=== PATIENT | male | born 1975 | race Caucasian/White ===

== ENCOUNTER 2016-03-07 17:46 | Emergency (ER) | payer OTHER, MEDICARE ==
[~2016-03-07 17:46] MED LIST: ADVAIR 250-501 EACH INH; ALBUTEROL 3 ML3 ML; ALBUTEROL 3 ML3 ML INH; ALBUTEROL SULFAT3 M1 NEB; ALPRAZOLAM0.5 MG PO; AMOXIL500 MG PO; ATIVAN0.5 MG PO; ATIVAN1 MG PO; AUGMENTIN 250 M1 TAB PO; AUGMENTIN 875 M1 TAB PO; CARAFATE 1GM1000 MG PO; CEFUROXIME500 MG PO; CETIRIZINE HCL10 MG PO; CLINDAMYCIN PHO60 M2 TOP; DEXILANT60 M1 PO; DEXILANT60 MG PO; DUONEB 3 MG/3 ML3 ML INH/SOL; FLEXERIL10 MG PO; FLONASE120 SPRAY/ NASB; FLOVENT HF0.22 MG/Ac INH; FLOVENT1 PU1 INH; GUAFENESIN400 MG PO; GUAIFENESIN-COD10 ML PO; LEVAQUIN500 M1 PO; LEVOFLOXACIN500 MG PO; LEXAPRO 10MG10 MG PO; LEXAPRO 20MG M20 MG PO; LEXAPRO10 M1 PO; LIDOCAINE VISCO20 ML PO; MEDROL DOSEPAK1 PAC PO; METOCLOPRAMIDE H5 M1 PO; MOTRIN800 MG PO; MUCINEX FAST-MA1 TAB PO; NAPROXEN500 MG PO; NASONEX0.05 MG/Ac NASB; PERCOCET 325 MG1 TA2 PO; PREDNISONE 10MG10 M1 PO; PREDNISONE 20MG20 MG PO; PREDNISONE10 M2 PO; PREDNISONE10 MG PO; PREDNISONE20 M1 PO; PREDNISONE50 MG PO; ROBITUSSIN W/CO10 ML PO; TESSALON PERLE100 M1 PO; TESSALON PERLE100 MG PO; VENTOLIN1 PUF INH; ZITHROMAX Z-PA250 M1 PO; ZOFRAN4 M2 PO
--- NOTE | 2016-03-07 18:16 | ED GENERAL ADULT ---
History of Present Illness General Chief Complaint: Abdominal Pain/Flank Pain Stated Complaint: ABD PAIN, ACID REFLUX PAIN Source: patient, old records Exam Limitations: no limitations Vital Signs & Intake/Output Vital Signs & Intake/Output Vital Signs Date Time Temp Pulse Resp B/P Pulse O2 O2 Flow FiO2 Ox Delivery Rate 03/07 1944 97.1 92 18 128/80 96 Room Air 03/07 1758 97.2 100 18 156/94 98 Room Air ED Intake and Output 03/08 0000 03/07 1200 Intake Total 0 Output Total Balance 0 Intake, Oral 0 Allergies Coded Allergies: NO KNOWN ALLERGIES (03/07/16) Reconcile Medications Albuterol Sulfate (Ventolin) 1 UNIT PUF 2 PUF INH Q4H PRN WHEEZING/SHORTNESS OF BREATH Albuterol Sulfate/Ipratropiu (Duoneb) 3 MG/3 ML NEB 1 Vial INH/RUTHY 4 TIMES/DAY asthma Dexlansoprazole (Dexilant) 60 MG CAP.BP 1 CAP PO DAILY GI (Reported) Escitalopram Oxalate (Lexapro) 10 MG TABLET 1 TAB PO DAILY MENTAL HEALTH ( Reported) FLUTICASONE/SALMETEROL (Advair 250-50 Diskus) 1 DSK DSK 1 PUFF INH BID ASTHMA (Reported) Hyoscyamine (Levsin) 0.125 MG TABLET 1 TAB PO Q4 PRN ABD CRAMPING (Reported) Lorazepam 0.5 MG TABLET 1 TAB PO TID PRN ANXIETY (Reported) Sucralfate 1 GRAM TABLET 1 TAB PO 4 TIMES/DAY GI (Reported) Triage Note: PT BROUGHT DIRECTLY TO 3 PT STATES "MY HEAD FEELS EXTREMELY HOT" 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 Triage Nurses Notes Reviewed? yes HPI: Patient is a 40-year-old male presents complaining of feeling "extremely hot" sudden onset 30 minutes ago. Patient reports that he has been having varying abdominal pain over the past 2-3 weeks, no abdominal pain currently also reports upper posterior thoracic pain which feels similar to his previous acid reflux. Patient concerned that he may be having acid reflux that is going down into his lungs. Having a feeling of chest tightness that feels similar to previous asthma exacerbations. Patient took 0.5 mg of lorazepam and use an albuterol nebulizer treatment prior to arrival with mild improvement. No significant cough. Patient had a bowel movement today that was normal. Patient denies fevers, chills, nausea, vomiting. (LIVE GREENE) Past History Travel History Traveled to [place] past 21 day No Medical History Any Pertinent Medical History? 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 DVT Relation not specified for: *No pertinent family history Hx Contributory? No (LIVE GREENE) Review of Systems Review of Systems Constitutional: Denies: chills, fever. EENTM: Reports: no symptoms. Respiratory: Reports: wheezing. Denies: cough, short of breath. Cardiovascular: Reports: chest pain. GI: Reports: abdominal pain (NONE CURRENTLY). Denies: nausea, vomiting. Genitourinary: Reports: no symptoms. Musculoskeletal: Reports: no symptoms. Skin: Reports: no symptoms. Neurological/Psychological: Reports: headache (NONE CURRENTLY). Hematologic/Endocrine: Denies: bruising, bleeding. Immunologic/Allergic: Denies: splenectomy. (LIVE GREENE) Physical Exam Physical Exam General Appearance: well developed/nourished, alert, awake, anxious Head: atraumatic, normal appearance Eyes: Bilateral: normal appearance, PERRL, EOMI. Ears, Nose, Throat: normal pharynx, normal ENT inspection, hearing grossly normal Neck: normal inspection, supple, full range of motion Respiratory: mild expiratory wheezing left lung base. Cardiovascular: regular rate/rhythm (NO MURMUR) Gastrointestinal: normal bowel sounds, soft, non-tender Back: normal inspection, normal range of motion, no vertebral tenderness Extremities: normal inspection, normal capillary refill, normal range of motion, no edema Neurologic/Psych: no motor/sensory deficits, awake, alert, oriented x 3, normal gait, normal mood/affect Skin: warm/dry, MULTIPLE SURGICAL SCARS TO THE ABDOMEN, NO SIGNS OF INFECTION Lymphatic: no anterior cervical rex Core Measures ACS in differential dx? No CVA/TIA Diagnosis: No Severe Sepsis Present: No Septic Shock Present: No (LIVE GREENE) Progress Differential Diagnoses I considered the following diagnoses in my evaluation of the patient: gerd, aspiration pneumonitis, bronchitis, pneumonia, anxiety Plan of Care: Orders Procedure Date/time Status LIPASE 03/07 1809 Complete COMPREHENSIVE METABOLIC PANEL 03/07 1809 Complete CBC WITHOUT DIFFERENTIAL 03/07 1809 Complete Laboratory Tests 03/07/161818: Anion Gap 14, Estimated GFR > 60, BUN/Creatinine Ratio 7.5, Glucose 173 H, Calcium 8.9, Total Bilirubin 0.8, AST 25, ALT 46, Alkaline Phosphatase 52, Total Protein 6.9, Albumin 4.4, Globulin 2.5, Albumin/Globulin Ratio 1.8, Lipase 173 03/07/161813: CBC w Diff NO MAN DIFF REQ, RBC 4.52 L, MCV 91.8, MCH 30.9, RDW 13.1, MPV 8.2, Gran % 61.2, Lymphocytes % 25.0, Monocytes % 9.6 H, Eosinophils % 3.9, Basophils % 0.3, Absolute Granulocytes 4.3, Absolute Lymphocytes 1.7, Absolute Monocytes 0.7 H, Absolute Eosinophils 0.3, Absolute Basophils 0, PUBS MCHC 33.7 1939: Patient reports feeling significantly improved after nebulizer treatment. Results of labs and chest x-ray discussed with patient. Appears stable for discharge. Instructed to follow up with his primary doctor regarding his blood sugar and his symptoms along with his GI doctor regarding his abdominal pain. (LIVE GREENE) Initial ED EKG: none (LIVE GREENE) Departure Departure Time of Disposition: 1942 Disposition: HOME OR SELF CARE Condition: Stable Clinical Impression Primary Impression: Bronchospasm Secondary Impressions: GERD (gastroesophageal reflux disease) Qualifiers: Esophagitis presence: esophagitis presence not specified Qualified Code: K21.9 - Gastro-esophageal reflux disease without esophagitis Referrals: TYLER WRAY MD (PCP/Family) Additional Instructions: Use your albuterol nebulizer as directed. Follow up with your primary doctor for further evaluation of your blood sugar and your symptoms. Also follow up with your GI doctor. Call Thursday for appointment to be seen within 1 week. Return to the ER if worsening of symptoms. Departure Forms: Customer Survey General Discharge Information (LIVE GREENE) PA/WEB METHODS DEVELOPER Co-Sign Statement Statement: ED Attending supervision documentation- [] I saw and evaluated the patient. I have also reviewed all the pertinent lab results and diagnostic results. I agree with the findings and the plan of care as documented in the PA's/WEB METHODS DEVELOPER's documentation. [x] I have reviewed the ED Record and agree with the PA's/WEB METHODS DEVELOPER's documentation. [] Additions or exceptions (if any) to the PAs/WEB METHODS DEVELOPER's note and plan are summarized below: [] (MAREK HAILE,KAREN Carey) Critical Care Note Critical Care Note Critical Care Time: non-applicable (LIVE GREENE)
[2016-03-07] MEDS ORDERED: SUCRALFATE1 G1 PO (18:21)
[2016-03-07] MEDS ORDERED: LORAZEPAM0.5 M1 PO (18:21)
[2016-03-07] MEDS ORDERED: DEXILANT60 M1 PO (18:21)
[2016-03-07] MEDS ORDERED: LEVSIN0.125 M1 PO (18:22)
[2016-03-07 18:31] LABS: ABSOLUTE BASOPHIL COUNT 0 /CUMM (0.0-0.2); ABSOLUTE EOSINOPHIL COUNT 0.3 /CUMM (0.0-0.7); ABSOLUTE GRANULOCYTE CT 4.3 /CUMM (1.4-6.5); ABSOLUTE LYMPH COUNT 1.7 /CUMM (1.2-3.4); ABSOLUTE MONOCYTE COUNT 0.7 /CUMM (0.10-0.60); BASOPHIL % 0.3 % (0.0-2.0); EOSINOPHIL % 3.9 % (0-5); GRANULOCYTE % 61.2 % (42.2-75.2); HEMATOCRIT 41.5 % (42-52); MEAN CORPUSCULAR HGB 30.9 PG (27.0-31.0); MEAN CORPUSCULAR HGB CONC 33.7 G/DL (33.0-37.0); MEAN CORPUSCULAR VOLUME 91.8 FL (80.0-94.0); MEAN PLATELET VOLUME 8.2 FL (7.4-10.4); PLATELET COUNT 277 /CUMM (130-400); RBC DISTRIBUTION WIDTH 13.1 % (11.5-14.5); RED BLOOD CELL CT 4.52 /CUMM (4.70-6.10)
--- NOTE | 2016-03-07 19:32 | RADIOLOGY REPORT ---
EXAMINATION: XR CHEST CLINICAL INFORMATION: 40-year-old male with intermittent chest tightness. GERD. Consider aspiration pneumonia. History of esophageal atresia with colonic interposition. COMPARISON: Chest x-ray done 02/19/2016. TECHNIQUE: PA and lateral views of the chest were obtained. FINDINGS: The heart remains normal in size. Air-fluid levels in the anterior mediastinum are contained within the colonic pull-up procedure. Lungs are clear. There is no evidence of pneumonia or edema. No pleural effusion is seen. IMPRESSION: No acute disease.
[2016-03-07 19:44] VITALS: BP 128/80
== END 2016-03-07 20:02 ==
LOC: ERH 17:46
PROVIDERS: Physician Assistant
DX: J98.01 Acute bronchospasm (principal); K21.9 Gastro-esophageal reflux disease without esophagitis
CPT/HCPCS: 1263

== ENCOUNTER 2016-03-25 23:13 | Emergency (ER) | payer OTHER, MEDICARE ==
[~2016-03-25] VITALS: Ht 167.6 cm; Wt 68.0 kg
[~2016-03-25 23:13] MED LIST changes: +LEVSIN0.125 M1 PO; +LORAZEPAM0.5 M1 PO; +SUCRALFATE1 G1 PO
[2016-03-25 23:42] VITALS: BP 169/82
== END 2016-03-26 00:15 | disposition admitted as inpatient to this hospital (09) ==
LOC: ERH 23:13
DX: R06.02 Shortness of breath (principal)

== ENCOUNTER 2016-03-26 22:03 | Emergency (ER) | payer OTHER, MEDICARE ==
--- NOTE | 2016-03-26 22:29 | ED DYSPNEA/ASTHMA COMPLAINT ---
History of Present Illness General Chief Complaint: General Adult Stated Complaint: "DIFF.BREATHING/CHEST PRESSURE,SPO2 95 % HR 74" Source: patient, old records Exam Limitations: no limitations Vital Signs & Intake/Output Vital Signs & Intake/Output Vital Signs Date Time Temp Pulse Resp B/P Pulse O2 O2 Flow FiO2 Ox Delivery Rate 03/26 2250 Room Air 03/26 2245 96 03/26 2209 97.3 78 22 156/78 94 Room Air Allergies Coded Allergies: NO KNOWN ALLERGIES (03/07/16) Reconcile Medications Albuterol Sulfate (Ventolin) 1 UNIT PUF 2 PUF INH Q4H PRN WHEEZING/SHORTNESS OF BREATH Albuterol Sulfate/Ipratropiu (Duoneb) 3 MG/3 ML NEB 1 Vial INH/RUTHY 4 TIMES/DAY asthma Dexlansoprazole (Dexilant) 60 MG CAP.BP 1 CAP PO DAILY GI (Reported) Escitalopram Oxalate (Lexapro) 10 MG TABLET 1 TAB PO DAILY MENTAL HEALTH ( Reported) FLUTICASONE/SALMETEROL (Advair 250-50 Diskus) 1 DSK DSK 1 PUFF INH BID ASTHMA (Reported) Hyoscyamine (Levsin) 0.125 MG TABLET 1 TAB PO Q4 PRN ABD CRAMPING (Reported) Lorazepam 0.5 MG TABLET 1 TAB PO TID PRN ANXIETY (Reported) Sucralfate 1 GRAM TABLET 1 TAB PO 4 TIMES/DAY GI (Reported) Triage Note: PER PT MULTIPLE VISITS FOR STOMACH PAIN GIVEN MEDS HERE YESTERDAY FOR SAME BUT LEFT PRIOR TO BE SEEN, BECAUSE IT WENT AWAY. TODAY HAPPENED AGAIN AND MED DID NOT WORK Triage Nurses Notes Reviewed? yes HPI: This is a 40-year-old male presents to the ER chief complaint abdominal pain vomiting times one, cough and shortness of breath. Patient has a history of esophageal trees GI and small bowel pull-through. He suffers from episodes of chronic aspiration. He states he took some Levsin after his abdominal cramping tonight which was prescribed by a GI doctor. He states after that he got a very dry mouth and then started to have some shortness of breath became worried. He states he took one of his anxiety medications prior to arrival. No fever no chills. No productive sputum. (DOMINGUEZ HAILE,YESICA) Past History Travel History Traveled to [place] past 21 day No Medical History Any Pertinent Medical History? 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 DVT Relation not specified for: *No pertinent family history Hx Contributory? No (YESICA MIX MD) Review of Systems Review of Systems Constitutional: Denies: chills, fever. EENTM: Reports: no symptoms. Respiratory: Reports: cough, short of breath. Denies: sputum production. Cardiovascular: Reports: no symptoms. GI: Reports: abdominal pain, nausea, vomiting. Genitourinary: Reports: no symptoms. Musculoskeletal: Reports: gout. Skin: Reports: no symptoms. Neurological/Psychological: Reports: anxiety. Hematologic/Endocrine: Denies: bruising, bleeding. Immunologic/Allergic: Reports: no symptoms. All Other Systems: Reviewed and Negative (YESICA MIX MD) Physical Exam Physical Exam General Appearance: well developed/nourished, alert, awake, anxious, mild distress Head: atraumatic, normal appearance Eyes: Bilateral: normal appearance, PERRL, EOMI. Ears, Nose, Throat: normal pharynx, normal ENT inspection Neck: normal inspection, supple, full range of motion Respiratory: CRACKLES BILATERALLY Cardiovascular: regular rate/rhythm Peripheral Pulses: 2+ radial (R), 2+ radial (L) Gastrointestinal: soft, DISTENDED, NONTENDER Extremities: normal inspection, normal capillary refill, normal range of motion, no edema Neurologic/Psych: no motor/sensory deficits, awake, alert, oriented x 3 Skin: intact, normal color, warm/dry Core Measures ACS in differential dx? No Severe Sepsis Present: No Septic Shock Present: No (YESICA MIX MD) Progress Differential Diagnosis: bronchitis, pulmonary embolism, pneumonia, SBO, GASTRITIS, PUD Plan of Care: Orders Procedure Date/time Status RT ED ORDERS 03/26 2255 Active Diagnostic Imaging: Viewed by Me: Radiology Read. Discussed w/RAD: Radiology Read. Initial ED EKG: none Hand-Off Endorsed To: KAREN JARA MD Endorsed Time: 2324 Pending: Xray (YESICA MIX MD) CXR Impression: STABLE INTERSTITIAL PROMINENCE OF RIGHT UPPER LOBE... FULL REPORT BELOW. Comments: PATIENT: LEE JEFFRIES PRESENT AGE: 40 PATIENT ACCOUNT NO: [id number] : 75 LOCATION: [facility] ORDERING PHYSICIAN: YESICA MIX MD SERVICE DATE: 03/26/16 EXAM TYPE: RAD - XRY-CHEST XRAY, PA AND LATERAL EXAMINATION: CHEST 2 VIEWS CLINICAL INFORMATION: Bibasilar crackles. COMPARISON: 03/07/2016. TECHNIQUE: PA and lateral views of the chest were obtained. FINDINGS: The cardiac silhouette is not enlarged. The mediastinal and hilar contours are unremarkable. There are neither pleural effusions nor pneumothoraces. There are no consolidations. The appearance of coarsening of interstitial markings within the right upper lobe is relatively stable. The osseous structures are unremarkable. IMPRESSION: No evidence for acute airspace disease. Stable interstitial prominence within the right upper lobe. DICTATED BY: MADHU PICKENS MD DATE/TIME DICTATED:03/26/162325 BOAT DIESEL MOTOR MECHANIC:DARIO DATE/TIME TRANSCRIBED:03/26/162325 CONFIDENTIAL, DO NOT COPY WITHOUT APPROPRIATE AUTHORIZATION. <Electronically signed in Other Vendor System> SIGNED BY: MADHU PICKENS MD 03/26/162329 (KAREN JARA MD) Departure Departure Disposition: HOME OR SELF CARE Condition: Stable Referrals: TYLER WRAY MD (PCP/Family) Departure Forms: Customer Survey General Discharge Information (YESICA MIX MD) Departure Clinical Impression Primary Impression: Bronchospasm Secondary Impressions: GERD (gastroesophageal reflux disease) Comments 03/26/16, 23:54.... Pt feels well. No problems breathing. He shares that he believes that his symptoms are caused by his acid reflux. His cxr is negative, lungs are clear. He shares that he has all the supportive medications he needs. He is safe for discharge and will follow up with his PMD. (MAREK HAILE,KAREN Carey) Critical Care Note Critical Care Note Critical Care Time: non-applicable (DOMINGUEZ HAILE,YESICA)
--- NOTE | 2016-03-26 23:30 | RADIOLOGY REPORT ---
EXAMINATION: CHEST 2 VIEWS CLINICAL INFORMATION: Bibasilar crackles. COMPARISON: 03/07/2016. TECHNIQUE: PA and lateral views of the chest were obtained. FINDINGS: The cardiac silhouette is not enlarged. The mediastinal and hilar contours are unremarkable. There are neither pleural effusions nor pneumothoraces. There are no consolidations. The appearance of coarsening of interstitial markings within the right upper lobe is relatively stable. The osseous structures are unremarkable. IMPRESSION: No evidence for acute airspace disease. Stable interstitial prominence within the right upper lobe.
[2016-03-27] VITALS: BP 144/78
== END 2016-03-27 00:22 ==
LOC: ERH 22:03
DX: J98.01 Acute bronchospasm (principal); K21.9 Gastro-esophageal reflux disease without esophagitis
CPT/HCPCS: 1263

== ENCOUNTER 2016-04-05 03:56 | Emergency (ER) | payer OTHER, MEDICARE ==
[~2016-04-05] VITALS: Ht 167.6 cm; Wt 68.0 kg
[2016-04-05 04:02] VITALS: BP 180/94
--- NOTE | 2016-04-05 04:14 | ED DYSPNEA/ASTHMA COMPLAINT ---
History of Present Illness General Chief Complaint: Wheezing/Asthma Stated Complaint: DIFF BREATHING HX ASTHMA Source: patient Exam Limitations: no limitations Vital Signs & Intake/Output Vital Signs & Intake/Output Vital Signs Date Time Temp Pulse Resp B/P Pulse O2 O2 Flow FiO2 Ox Delivery Rate 04/05 0411 98 Room Air 04/05 0402 97.4 96 18 180/94 98 Room Air Allergies Coded Allergies: NO KNOWN ALLERGIES (03/07/16) Reconcile Medications Albuterol Sulfate (Ventolin) 1 UNIT PUF 2 PUF INH Q4H PRN WHEEZING/SHORTNESS OF BREATH Albuterol Sulfate/Ipratropiu (Duoneb) 3 MG/3 ML NEB 1 Vial INH/RUTHY 4 TIMES/DAY asthma Dexlansoprazole (Dexilant) 60 MG CAP.DRHareshBP 1 CAP PO DAILY GI (Reported) Escitalopram Oxalate (Lexapro) 10 MG TABLET 1 TAB PO DAILY MENTAL HEALTH ( Reported) FLUTICASONE/SALMETEROL (Advair 250-50 Diskus) 1 DSK DSK 1 PUFF INH BID ASTHMA (Reported) Levalbuterol HCl (Xopenex Concentrate) 1.25 MG/0.5 ML VIAL.NEB 1 Vial PO TID PRN WHEEZE 1 TREATMENT THREE TIMES A DAY NEEDED icd 10... j45.9 Lorazepam 0.5 MG TABLET 1 TAB PO TID PRN ANXIETY (Reported) Sucralfate 1 GRAM TABLET 1 TAB PO 4 TIMES/DAY GI (Reported) Triage Note: PT STATES HE WAS HAVING SOME DIFFICULTY BREATHING STARTED TO TAKE A DUO NEB AND STARTED TO FEEL LIKE HIS HEART WAS RACING Triage Nurses Notes Reviewed? yes Onset: Abrupt Duration: minute(s):, gone now Timing: single episode today Severity: mild Activities at Onset: "I was giving myself a breathing treatment." Prior Episodes/Possible Cause: occasional episodes Modifying Factors: Improves With: rest. Associated Symptoms: wheezing HPI: 40-year-old gentleman history of asthma, reflux secondary to esophageal atresia status post colonic reimplantation, presents with brief episode of palpitations. He states that he was giving himself a breathing treatment. He felt like his heart started beating quickly. He had no shortness of breath chest pain dizziness, or syncopal symptoms. He stopped the breathing treatment. He immediately felt better. He presents to the emergency department for further care. He states that he is otherwise well, except for chronic lower abdominal pain which she has had for several months. He has no nausea diarrhea weight loss. He has follow-up arranged with the thread inspector. He has no fever chills or dyspnea or chest pain. Past History Travel History Traveled to [place] past 21 day No Medical History Any Pertinent Medical History? 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 DVT Relation not specified for: *No pertinent family history Hx Contributory? No Review of Systems Review of Systems Constitutional: Reports: no symptoms. EENTM: Reports: no symptoms. Respiratory: Reports: no symptoms. Cardiovascular: Reports: no symptoms. GI: Reports: no symptoms. Genitourinary: Reports: no symptoms. Musculoskeletal: Reports: no symptoms. Skin: Reports: no symptoms. Neurological/Psychological: Reports: no symptoms. Hematologic/Endocrine: Reports: no symptoms. Immunologic/Allergic: Reports: no symptoms. All Other Systems: Reviewed and Negative Physical Exam Physical Exam General Appearance: well developed/nourished Head: atraumatic, normal appearance Eyes: Bilateral: normal appearance. Ears, Nose, Throat: normal pharynx, normal ENT inspection Neck: normal inspection, supple, full range of motion Respiratory: normal breath sounds, chest non-tender, no respiratory distress, quiet respiration, lungs clear Cardiovascular: regular rate/rhythm Gastrointestinal: normal bowel sounds, soft, non-tender, no organomegaly Extremities: normal inspection, normal capillary refill, normal range of motion Neurologic/Psych: no motor/sensory deficits, awake, alert, oriented x 3 Skin: intact, normal color, warm/dry Core Measures ACS in differential dx? No Severe Sepsis Present: No Septic Shock Present: No Progress Differential Diagnosis: asthma, bronchitis, costochondritis Plan of Care: Orders Procedure Date/time Status EKG 02/11 0420 Active Initial ED EKG: normal axis, normal intervals, normal p-waves, normal QRS complex, normal sinus rhythm Departure Departure Disposition: HOME OR SELF CARE Condition: Stable Clinical Impression Primary Impression: Palpitations Secondary Impressions: Asthma, GERD (gastroesophageal reflux disease), Medication side effect Referrals: NILS HAILE,TYLER (PCP/Family) Departure Forms: Customer Survey General Discharge Information Prescriptions: Current Visit Scripts Levalbuterol HCl (Xopenex Concentrate) 1 Vial PO TID PRN WHEEZE #1 BOX Ref 1 1 TREATMENT THREE TIMES A DAY NEEDED icd 10... j45.9 Comments 04/05/16, 4:53am... pt feels well... discussed at length... ekg benign... likely, his brief episode of palpations was due to side effect of albuterol, since he was taking the medication and felt his symptoms then. I prescribed xopenex, and advocated close follow up. Critical Care Note Critical Care Note Critical Care Time: non-applicable
[2016-04-05] MEDS ORDERED: XOPENEX CO1.25 MG/0. PO ×2 (04:25→04:52)
== END 2016-04-05 05:00 ==
LOC: ERH 03:56
DX: R00.2 Palpitations (principal); J45.909 Unspecified asthma, uncomplicated; K21.9 Gastro-esophageal reflux disease without esophagitis
CPT/HCPCS: 93005; 93010

== ENCOUNTER 2016-04-10 20:50 | Emergency (ER) | payer OTHER, MEDICARE ==
[~2016-04-10 20:50] MED LIST changes: +XOPENEX CO1.25 MG/0. PO
[2016-04-10 21:08] VITALS: BP 152/91
== END 2016-04-10 22:19 | disposition admitted as inpatient to this hospital (09) ==
LOC: ERH 20:50
DX: R06.02 Shortness of breath (principal)
CPT/HCPCS: 93005; 93010; 99281

== ENCOUNTER 2016-04-15 22:25 | Emergency (ER) | payer OTHER, MEDICARE ==
[~2016-04-15] VITALS: Ht 165.1 cm; Wt 68.0 kg
--- NOTE | 2016-04-15 23:34 | ED AMS/SEIZURE/WEAK/DIZZY ---
History of Present Illness General Chief Complaint: General Adult Stated Complaint: ANXIETY, "HEAVINESS IN MY HEAD" Source: patient, old records Exam Limitations: no limitations Vital Signs & Intake/Output Vital Signs & Intake/Output Vital Signs Date Time Temp Pulse Resp B/P Pulse O2 O2 Flow FiO2 Ox Delivery Rate 04/15 2256 98 Room Air 04/15 2232 98.0 105 18 172/98 99 Room Air Allergies Coded Allergies: NO KNOWN ALLERGIES (03/07/16) Reconcile Medications Albuterol Sulfate (Ventolin) 1 UNIT PUF 2 PUF INH Q4H PRN WHEEZING/SHORTNESS OF BREATH Albuterol Sulfate/Ipratropiu (Duoneb) 3 MG/3 ML NEB 1 Vial INH/RUTHY 4 TIMES/DAY asthma Dexlansoprazole (Dexilant) 60 MG CAP.BP 1 CAP PO DAILY GI (Reported) Escitalopram Oxalate (Lexapro) 10 MG TABLET 1 TAB PO DAILY MENTAL HEALTH ( Reported) FLUTICASONE/SALMETEROL (Advair 250-50 Diskus) 1 DSK DSK 1 PUFF INH BID ASTHMA (Reported) Levalbuterol HCl (Xopenex Concentrate) 1.25 MG/0.5 ML VIAL.NEB 1 Vial PO TID PRN WHEEZE 1 TREATMENT THREE TIMES A DAY NEEDED icd 10... j45.9 Lorazepam 0.5 MG TABLET 1 TAB PO TID PRN ANXIETY (Reported) Sucralfate 1 GRAM TABLET 1 TAB PO 4 TIMES/DAY GI (Reported) Triage Note: PT TO TRIAGE WITH C/O ANXIETY,PALPITATIONS, CHEST TIGHTNESS, WEAKNESS STARTED 30MIN RN NEONATAL ICU. PT STARTED ON AMITRIPTYLINE A WEEK AGO FOR ABD PAIN, AND TOOK 10MG TAB AT 2100. PT RELATES HIS SYMPTOMS TO NEW MED. PT DENIES ANY PAIN. VSS. HX OF GERD, PT WAS BORN WITHOUT ESOPHAGUS, ASTHMA. Triage Nurses Notes Reviewed? yes HPI: Patient presents for evaluation of drowsiness and anxiety. Symptoms began abruptly at about 10:00 this evening while at home. Patient began taking amitriptyline last week for gastrointestinal issues. Patient states that since beginning the medicine he has felt "foggy" each morning. So the patient began feeling drowsy tonight which then triggered anxiety, chest pressure and palpitations. Patient describes his anxiety as severe. Patient feels that his anxiety was due in part to the fact that he has never had this type of reaction to a medication before. Past History Travel History Traveled to [place] past 21 day No Medical History Any Pertinent Medical History? 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 DVT Relation not specified for: *No pertinent family history Hx Contributory? No Review of Systems Review of Systems Constitutional: Reports: malaise. EENTM: Reports: no symptoms. Respiratory: Reports: no symptoms. Cardiovascular: Reports: see HPI. GI: Reports: no symptoms. Genitourinary: Reports: no symptoms. Musculoskeletal: Reports: no symptoms. Skin: Reports: no symptoms. Neurological/Psychological: Reports: no symptoms. Hematologic/Endocrine: Reports: no symptoms. Immunologic/Allergic: Reports: no symptoms. All Other Systems: Reviewed and Negative Physical Exam Physical Exam General Appearance: SEE BELOW Comments: Gen.: Well-nourished, well-developed, no acute respiratory distress. Head: Normocephalic, atraumatic. Eyes: Normal inspection bilaterally Ears: Normal inspection bilaterally Nose: Normal inspection Throat/mouth : Moist mucosa Neck: Supple, full range of motion, no goiter Heart: Regular rate and rhythm, no murmurs rubs or gallops Lungs: Clear to auscultation bilaterally with normal air entry Chest: Nontender Back: Normal range of motion Abdomen: Soft, nontender, nondistended, normal bowel sounds Extremities: Normal range of motion grossly, equal radial pulses, no cyanosis clubbing or edema Neurologic: Cranial nerves grossly intact, speech is clear Skin: warm and dry Psychiatric: Calm, cooperative, no apparent delusions or hallucinations Core Measures ACS in differential dx? No CVA/TIA Diagnosis: No Severe Sepsis Present: No Septic Shock Present: No Progress Differential Diagnosis: MEDICATION SIDE EFFECT Plan of Care: Orders Procedure Date/time Status Telemetry/Education Faculty Member 04/15 2343 Active EKG 04/156 Active Initial ED EKG: NSR, rate (88), no ST T wave changes Prior EKG: unchanged Rhythm Strip: normal sinus rhythm Departure Departure Disposition: HOME OR SELF CARE Condition: Stable Clinical Impression Primary Impression: Medication side effect Referrals: TYLER WRAY MD (PCP/Family) Additional Instructions: Contact the GI specialist who prescribed the amitriptyline and discuss with him or her this emergency department visit and the possibility of medication side effects. He will then need to decide if she should continue the medication or not. Notify your primary care doctor of this emergency department visit and treatment plan. Return if any concerns or sudden worsening. Thank you for choosing the [facility] Emergency Department for your care. It was a pleasure to serve you today. Lino Robb M.D. [facility] Departure Forms: Customer Survey General Discharge Information
[2016-04-15 23:56] VITALS: BP 151/78
== END 2016-04-15 23:59 ==
LOC: ERH 22:25
DX: T50.991A Poisoning by other drugs, medicaments and biological substances, accidental (unintentional), initial encounter (principal); R07.89 Other chest pain
CPT/HCPCS: 93005; 93010

== ENCOUNTER 2016-04-16 23:42 | Emergency (ER) | payer OTHER, MEDICARE ==
[~2016-04-16] VITALS: Ht 165.1 cm; Wt 68.0 kg
--- NOTE | 2016-04-17 00:10 | ED CARDIAC/CP/PALPITATIONS ---
History of Present Illness General Chief Complaint: General Adult Stated Complaint: "PRESSURE ON L SIDE AND MIDDLE OF CHEST" PER PT Source: patient Exam Limitations: no limitations Vital Signs & Intake/Output Vital Signs & Intake/Output Vital Signs Date Time Temp Pulse Resp B/P Pulse O2 O2 Flow FiO2 Ox Delivery Rate 04/17 0231 98.0 68 18 131/74 95 Room Air 04/17 0036 98.2 88 18 152/89 95 Room Air Allergies Coded Allergies: NO KNOWN ALLERGIES (03/07/16) Reconcile Medications Albuterol Sulfate (Ventolin) 1 UNIT PUF 2 PUF INH Q4H PRN WHEEZING/SHORTNESS OF BREATH Albuterol Sulfate/Ipratropiu (Duoneb) 3 MG/3 ML NEB 1 Vial INH/RUTHY 4 TIMES/DAY asthma Amoxicillin/Clavulanate Potass (Amox-Clav 875-125 MG Tablet) 875 MG-125 MG TABLET 1 TAB PO BID (Reported) Dexlansoprazole (Dexilant) 60 MG CAP.BP 1 CAP PO DAILY GI (Reported) Escitalopram Oxalate (Lexapro) 10 MG TABLET 1 TAB PO DAILY MENTAL HEALTH ( Reported) FLUTICASONE/SALMETEROL (Advair 250-50 Diskus) 1 DSK DSK 1 PUFF INH BID ASTHMA (Reported) Levalbuterol HCl (Xopenex Concentrate) 1.25 MG/0.5 ML VIAL.NEB 1 Vial PO TID PRN WHEEZE 1 TREATMENT THREE TIMES A DAY NEEDED icd 10... j45.9 Lorazepam 0.5 MG TABLET 1 TAB PO TID PRN ANXIETY (Reported) Sucralfate 1 GRAM TABLET 1 TAB PO 4 TIMES/DAY GI (Reported) Triage Nurses Notes Reviewed? yes Onset: Gradual Duration: day(s): Timing: recent history Quality/Severity: moderate Location: left lateral chest pain Radiation: no radiation Activities at Onset: none Modifying Factors: Worsens With: breathing. HPI: 41-year-old gentleman history of asthma and autologous esophageal transplant with his: Presents with dyspnea and left-sided pleuritic type chest pain. He states that he has been on steroids for 5 days, completing a course a few days ago. He notes mild yellow phlegm after breathing treatment. He states he feels slightly better after breathing treatment. He notes no fever chills or diaphoresis. He notes a sharp pain in the left side of his chest worse with deep inspiration. He is otherwise well. Past History Travel History Traveled to [place] past 21 day No Medical History Any Pertinent Medical History? 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 DVT Relation not specified for: *No pertinent family history Hx Contributory? No Review of Systems Review of Systems Constitutional: Reports: no symptoms. EENTM: Reports: no symptoms. Respiratory: Reports: no symptoms. Cardiovascular: Reports: no symptoms. GI: Reports: no symptoms. Genitourinary: Reports: no symptoms. Musculoskeletal: Reports: no symptoms. Skin: Reports: no symptoms. Neurological/Psychological: Reports: no symptoms. Hematologic/Endocrine: Reports: no symptoms. Immunologic/Allergic: Reports: no symptoms. All Other Systems: Reviewed and Negative Physical Exam Physical Exam General Appearance: well developed/nourished, mild distress Head: atraumatic, normal appearance Eyes: Bilateral: normal appearance. Ears, Nose, Throat: normal pharynx, normal ENT inspection, hearing grossly normal Neck: normal inspection, supple, full range of motion Respiratory: normal breath sounds, chest non-tender, no respiratory distress, quiet respiration, lungs clear Cardiovascular: regular rate/rhythm Gastrointestinal: normal bowel sounds, soft, non-tender, no organomegaly Back: normal inspection, normal range of motion Extremities: normal inspection, normal capillary refill, normal range of motion, no edema Neurologic/Psych: no motor/sensory deficits, awake, alert, oriented x 3 Skin: intact Core Measures ACS in differential dx? No Severe Sepsis Present: No Septic Shock Present: No Progress Differential Diagnosis: AMI, musculoskeletal pain, pulmonary embolism Plan of Care: Orders Procedure Date/time Status TROPONIN LEVEL 04/16 2358 Complete D-DIMER 04/16 2358 Complete COMPREHENSIVE METABOLIC PANEL 04/16 2358 Complete CBC WITHOUT DIFFERENTIAL 04/16 2358 Complete EKG 04/16 2358 Active Laboratory Tests 04/17/16 0030: Anion Gap 10, Estimated GFR > 60, BUN/Creatinine Ratio 14.3, Glucose 117 H, Calcium 9.2, Total Bilirubin 0.3, AST 15 L, ALT 35, Alkaline Phosphatase 58, Troponin I < 0.01, Total Protein 6.5, Albumin 3.9, Globulin 2.6, Albumin/ Globulin Ratio 1.5, D-Dimer 1163 H, CBC w Diff NO MAN DIFF REQ, RBC 4.81, MCV 90.0, MCH 30.5, RDW 12.7, MPV 8.3, Gran % 48.6, Lymphocytes % 38.0, Monocytes % 8.5, Eosinophils % 4.4, Basophils % 0.5, Absolute Granulocytes 4.4, Absolute Lymphocytes 3.4, Absolute Monocytes 0.8 H, Absolute Eosinophils 0.4, Absolute Basophils 0, PUBS MCHC 33.9 Diagnostic Imaging: Viewed by Me: Radiology Read. Discussed w/RAD: Radiology Read. Radiology Impression: chest ct... no acute changes, emphesematous changes noted... full report below. CXR Impression: no acute abnormality, no infiltrates, normal size heart, normal mediastinum Initial ED EKG: normal axis, normal intervals, normal p-waves, normal QRS complex, normal sinus rhythm Comments: PATIENT: LEE JEFFRIES PRESENT AGE: 41 PATIENT ACCOUNT NO: [id number] : 75 LOCATION: [facility] ORDERING PHYSICIAN: KAREN JARA MD SERVICE DATE: 04/16/16 EXAM TYPE: RAD - XRY-PORTABLE CHEST XRAY EXAMINATION: XR PORTABLE CHEST CLINICAL INFORMATION: Chest pain. COMPARISON: Chest x-ray 03/26/2016 TECHNIQUE: Portable AP portable view of the chest was obtained. 12:25 AM FINDINGS: Heart size is enlarged. No pulmonary vascular congestion. Lungs are clear. No pleural effusion. No pneumothorax. Stable bilateral apical pleural thickening. Stable scarring at right lung apex. Compared to prior chest x-ray there is no change. IMPRESSION: No acute abnormality of the chest. DICTATED BY: RAMÍREZ AYALA MD DATE/TIME DICTATED:04/17/1645 PROJECTION TECHNICIAN:DARIO DATE/TIME TRANSCRIBED:04/17/1645 CONFIDENTIAL, DO NOT COPY WITHOUT APPROPRIATE AUTHORIZATION. <Electronically signed in Other Vendor System> SIGNED BY: RAMÍREZ AYALA MD 04/17/16 0050 Departure Departure Disposition: HOME OR SELF CARE Condition: Stable Clinical Impression Primary Impression: Asthma Referrals: TYLER WRAY MD (PCP/Family) Departure Forms: Customer Survey General Discharge Information Comments CT angios negative. He feels well. He denies significant sputum. He prefers not to have antibiotics. His lungs were largely clear. I do not think he needs another course of steroids. I advocated albuterol nebs [id number] and close follow-up. Critical Care Note Critical Care Note Critical Care Time: non-applicable
[2016-04-17 00:42] LABS: ABSOLUTE BASOPHIL COUNT 0 /CUMM (0.0-0.2); ABSOLUTE EOSINOPHIL COUNT 0.4 /CUMM (0.0-0.7); ABSOLUTE GRANULOCYTE CT 4.4 /CUMM (1.4-6.5); ABSOLUTE LYMPH COUNT 3.4 /CUMM (1.2-3.4); ABSOLUTE MONOCYTE COUNT 0.8 /CUMM (0.10-0.60); BASOPHIL % 0.5 % (0.0-2.0); EOSINOPHIL % 4.4 % (0-5); GRANULOCYTE % 48.6 % (42.2-75.2); HEMATOCRIT 43.3 % (42-52); MEAN CORPUSCULAR HGB 30.5 PG (27.0-31.0); MEAN CORPUSCULAR HGB CONC 33.9 G/DL (33.0-37.0); MEAN PLATELET VOLUME 8.3 FL (7.4-10.4); PLATELET COUNT 316 /CUMM (130-400); RBC DISTRIBUTION WIDTH 12.7 % (11.5-14.5); RED BLOOD CELL CT 4.81 /CUMM (4.70-6.10); WHITE BLOOD CELL COUNT 9.1 /CUMM (4.8-10.8)
--- NOTE | 2016-04-17 00:50 | RADIOLOGY REPORT ---
EXAMINATION: XR PORTABLE CHEST CLINICAL INFORMATION: Chest pain. COMPARISON: Chest x-ray 03/26/2016 TECHNIQUE: Portable AP portable view of the chest was obtained. 12:25 AM FINDINGS: Heart size is enlarged. No pulmonary vascular congestion. Lungs are clear. No pleural effusion. No pneumothorax. Stable bilateral apical pleural thickening. Stable scarring at right lung apex. Compared to prior chest x-ray there is no change. IMPRESSION: No acute abnormality of the chest.
--- NOTE | 2016-04-17 02:06 | CT SCAN REPORT ---
EXAMINATION: CT ANGIOGRAM OF THE CHEST WITH AND WITHOUT CONTRAST (CT PULMONARY ANGIOGRAM FOR PE) CLINICAL INFORMATION: CHEST PAIN, +DIMER COMPARISON: Chest x-ray 04/17/[address] of chest 09/12/2014 TECHNIQUE: Prior to contrast administration, noncontrast localization images were obtained. Subsequently, multidetector volumetric imaging was performed from the thoracic inlet to below the diaphragms following the administration of 90 mL Optiray 350 intravenous contrast. No contrast reaction reported Sagittal, coronal, and MIP oblique sagittal reformatted images were obtained on the CT workstation, uploaded to PACS, and reviewed. Total exam dose-length product 391.45 mGy-cm FINDINGS: QUALITY OF STUDY/CONTRAST BOLUS: Satisfactory. PULMONARY ARTERIES: No central or segmental pulmonary emboli. THORACIC AORTA: No aneurysm or dissection. LUNG: Emphysematous blebs at lung apices. Pleural-parenchymal scarring at lung bases. No acute change of chest. No infiltrate. Calcified granuloma posterior right upper lobe sagittal image 43. PLEURA: No pleural effusion or pneumothorax. MEDIASTINUM: Postsurgical change of anterior mediastinum with colonic pull-through. No mass. No adenopathy. No inflammation fluid collection. CHEST WALL/AXILLA: No axillary or internal mammary lymphadenopathy. OSSEOUS STRUCTURES: No acute or suspicious osseous abnormality. UPPER ABDOMEN: Unremarkable. No reflux of contrast into the hepatic veins to suggest elevated right heart pressures. IMPRESSION: 1. No acute change of chest. No evidence of pulmonary embolism. 2. Emphysema is changes of lung. 3. Status post colonic pull-through. VTE: negative
[2016-04-17 02:31] VITALS: BP 131/74
[2016-04-17] MEDS ORDERED: AMOX-CLAV 875-1 EACH PO (02:33)
== END 2016-04-17 02:34 ==
LOC: ERH 23:42
PROVIDERS: Pediatrics
DX: R07.89 Other chest pain (principal); J45.909 Unspecified asthma, uncomplicated
CPT/HCPCS: 93005; 93010

== ENCOUNTER 2016-05-28 18:04 | Emergency (ER) | payer OTHER, MEDICARE ==
[~2016-05-28] VITALS: Ht 167.6 cm; Wt 68.0 kg
[~2016-05-28 18:04] MED LIST changes: +AMOX-CLAV 875-1 EACH PO
[2016-05-28 18:17] VITALS: BP 135/91
--- NOTE | 2016-05-28 18:56 | ED HAND/WRIST INJURY COMPLAINT ---
History of Present Illness General Chief Complaint: Laceration Procedure Stated Complaint: FINGER LAC Source: patient Exam Limitations: no limitations Vital Signs & Intake/Output Vital Signs & Intake/Output Vital Signs Date Time Temp Pulse Resp B/P Pulse O2 O2 Flow FiO2 Ox Delivery Rate 05/28 1908 96 Room Air 05/28 1817 98.4 84 18 135/91 96 Room Air Allergies Coded Allergies: NO KNOWN ALLERGIES (03/07/16) Triage Note: CUT LEFT THUMB ON KNIFE, 1 HOUR AGO, 1/2 INCH LACERATION TO LEFT THUMB. BLEEDING CONTROLLED, NOT VISUALIZED IN TRIAGE. Triage Nurses Notes Reviewed? yes Occurred: just prior to arrival Duration: hour(s): (1) Timing: no prior history Injury Environment: home Severity: moderate Severity Numbers: 5 Pain/Injury Location: Left: 1st finger. Method of Injury: laceration No Modifying Factors: none HPI: Patient is a 41-year-old male presenting to the emergency department with chief complaint laceration to left thumb. Patient reports that he was cutting toast when he accidentally cut his thumb. Bleeding controlled with pressure home. Up -to-date with tetanus. Pain is mild. Nonradiating. Denies taking anything for pain prior to arrival. Denies any numbness or tingling. No other injuries. (ARELY DE LA CRUZ,IVON) Reconcile Medications Albuterol Sulfate (Ventolin) 1 UNIT PUF 2 PUF INH Q4H PRN WHEEZING/SHORTNESS OF BREATH Albuterol Sulfate/Ipratropiu (Duoneb) 3 MG/3 ML NEB 1 Vial INH/RUTHY 4 TIMES/DAY asthma Dexlansoprazole (Dexilant) 60 MG MELVIN.BP 1 CAP PO DAILY GI (Reported) Escitalopram Oxalate (Lexapro) 10 MG TABLET 1 TAB PO DAILY MENTAL HEALTH ( Reported) FLUTICASONE/SALMETEROL (Advair 250-50 Diskus) 1 DSK DSK 1 PUFF INH BID ASTHMA (Reported) Levalbuterol HCl (Xopenex Concentrate) 1.25 MG/0.5 ML VIAL.NEB 1 Vial PO TID PRN WHEEZE 1 TREATMENT THREE TIMES A DAY NEEDED icd 10... j45.9 Lorazepam 0.5 MG TABLET 1 TAB PO TID PRN ANXIETY (Reported) Sucralfate 1 GRAM TABLET 1 TAB PO 4 TIMES/DAY GI (Reported) (LAVELLE KRISHNAMURTHY DO) Past History Travel History Traveled to [place] past 21 day No Medical History Any Pertinent Medical History? 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 DVT Relation not specified for: *No pertinent family history Hx Contributory? No (IVON JACOBS) Review of Systems Review of Systems Constitutional: Reports: no symptoms. Comments Review of systems: See HPI, All other systems negative. Constitutional, no chills fever or weight loss HEENT: No visual changes no sore throat no congestion Cardiovascular: No chest pain Skin, no jaundice no rashes Respiratory: No dyspnea cough sputum or hemoptysis GI: No nausea no vomiting Muscle skeletal: no back pain, no neck pain, Neurologic: No numbness no confusion Psych: No stress anxiety Immunology: No splenectomy or history of AIDS (IVON JACOBS) Physical Exam Physical Exam General Appearance: well developed/nourished, no apparent distress, alert, awake , comfortable Hand Left: lacerations, 1st finger Hand Right: normal inspection, normal range of motion Comments: Well-developed well-nourished no apparent distress. HEENT: Atraumatic, extraocular motion intact Neck: Supple, no lymphadenopathy Back: Nontender Respiratory: No respiratory distress Extremities: No edema, full range of motion, nontender to palpation over the digits bilaterally in upper extremity. Radial pulses is 2+ bilaterally. Capillary refill is intact in upper extremities. Skin: Superficial flap-like laceration approximately 1 cm in length noted at the distal tip of the left thumb, no active bleeding. No tenderness to palpation. No surrounding erythema or edema. Neuro: Alert and oriented x3, motor and sensory intact in upper extremities. Psych: Mood affect normal, normal memory normal judgment. (IVON JACOBS) Progress Differential Diagnosis: laceration, abrasion, contusion, skin avulsion Plan of Care: Laceration was cleaned with Betadine and saline, closed with Dermabond. Patient up-to-date with tetanus. (IVON JACOBS) Departure Departure Time of Disposition: 1906 Disposition: HOME OR SELF CARE Condition: Stable Clinical Impression Primary Impression: Laceration Referrals: TYLER WRAY MD (PCP/Family) Additional Instructions: Follow-up with her primary care physician call to make appointment. Keep area clean and dry. Return for worsening symptoms or concerns. Let the glue and Steri-Strips fall off on their own. Departure Forms: Customer Survey General Discharge Information (IVON JACOBS) PA/GEOPHYSICAL LABORATORY DIRECTOR Co-Sign Statement Statement: ED Attending supervision documentation- [] I saw and evaluated the patient. I have also reviewed all the pertinent lab results and diagnostic results. I agree with the findings and the plan of care as documented in the PA's/GEOPHYSICAL LABORATORY DIRECTOR's documentation. [x] I have reviewed the ED Record and agree with the PA's/GEOPHYSICAL LABORATORY DIRECTOR's documentation. [] Additions or exceptions (if any) to the PAs/GEOPHYSICAL LABORATORY DIRECTOR's note and plan are summarized below: [] (RAGHU BASHIR,LAVELLE Beltran) Procedures Laceration/Wound Repair Laceration/Wound Repair: Wound Location: upper extremity Wound's Depth, Shape: flap, superficial Wound Length (cm): 1 Wound Explored: clean, no foreign body removed, irrigated extensively Irrigated w/ Saline (ccs): 1000 Betadine Prep? Yes Wound Debrided: none Wound Repaired With: Steri-strips, Dermabond Tetanus Status: up to date Progress: Patient tolerated procedure well. (IVON JACOBS)
== END 2016-05-28 19:27 ==
LOC: ERH 18:04
DX: S61.012A Laceration without foreign body of left thumb without damage to nail, initial encounter (principal); W26.0XXA Contact with knife, initial encounter; Y92.9 Unspecified place or not applicable; Y93.G1 Activity, food preparation and clean up

== ENCOUNTER 2016-06-22 10:24 | Emergency (ER) | payer OTHER, MEDICARE ==
[~2016-06-22] VITALS: Ht 167.6 cm; Wt 68.0 kg
--- NOTE | 2016-06-22 10:45 | ED DYSPNEA/ASTHMA COMPLAINT ---
History of Present Illness General Chief Complaint: Dyspnea (COPD, CHF, Other) Stated Complaint: SOB X 2 DAYS SEEN AT [facility] YESTERDAY Source: patient, old records Exam Limitations: no limitations Vital Signs & Intake/Output Vital Signs & Intake/Output Vital Signs Date Time Temp Pulse Resp B/P B/P Pulse O2 O2 Flow FiO2 Mean Ox Delivery Rate 06/22 1027 97.4 112 20 152/91 97 Room Air Allergies Coded Allergies: NO KNOWN ALLERGIES (03/07/16) Reconcile Medications Albuterol Sulfate (Proair Hfa) 90 MCG HFA.AER.AD 2 PUF INH Q4-6 PRN PRN SHORTNESS OF BREATH (Reported) Dexlansoprazole (Dexilant) 60 MG CAP.DR.BP 1 CAP PO DAILY GI (Reported) Escitalopram Oxalate (Lexapro) 10 MG TABLET 1 TAB PO DAILY MENTAL HEALTH ( Reported) Fluticasone/Salmeterol (Advair 250-50 Diskus) 250 MCG-50 MCG/DOSE BLST.W.DEV 1 PUF INH BID ASTHMA (Reported) Ipratropium/Albuterol Sulfate (Iprat-Albut 0.5-3(2.5) MG/3 Ml) 0.5 MG-3 MG (2.5 MG BASE)/3 ML AMPUL.NEB 1 VIAL PO 4 TIMES/DAY BREATHING PROBLEMS (Reported) Levofloxacin 500 MG TABLET 1 TAB PO DAILY ANTIBIOTIC, INFECTION (Reported) Lorazepam 0.5 MG TABLET 1 TAB PO TID PRN ANXIETY (Reported) Tiotropium [place] (Spiriva) 18 MCG CAP.W.DEV 1 CAP INH DAILY BREATHING PROBLEMS (Reported) Triage Note: PT TO ED C/O "TROUBLE BREATHING" X 1 WEEK. RA SATS 98%. NO OBVIOUS RESP DISTRESS NOTED. PT SEEN AT [facility] LAST NIGHT, GIVEN NEBS AND SENT HOME WITH PO ABX FOR ? ASPIRATION PNA. PT STATES HE COULD HAVE BEEN ADMITTED AT [facility] BUT FELT BETTER, SO HE WENT HOME. STATES THIS AM HE DOES NOT FEEL BETTER. C/O CONGESTION AND PRODUCTIVE COUGH WITH YELLOW SPUTUM. STATES HE CHOKED ON FOOD ON THURSDAY. Triage Nurses Notes Reviewed? yes HPI: Patient has known esophageal atresia. On he felt like he choked a little bit more than normal. Patient states he has been having asthma exacerbation since then. Patient went to [facility] yesterday and received 2 breathing treatments. Patient has been taking steroids. Patient was discharged from the emergency department. Today he still felt like he was wheezing. There are no fevers or chills. He denies any chest pain or chest tightness. He has had a nonproductive cough which is chronic. Patient states that is not worse than normal. There is no orthopnea. Patient comes in for reevaluation. Past History Travel History Traveled to [place] past 21 day No Medical History Any Pertinent Medical History? 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 DVT Relation not specified for: *No pertinent family history Hx Contributory? No Review of Systems Review of Systems Constitutional: Reports: see HPI, chills. EENTM: Reports: no symptoms. Respiratory: Reports: see HPI, cough, short of breath, wheezing. Cardiovascular: Reports: no symptoms. GI: Reports: no symptoms. Genitourinary: Reports: no symptoms. Musculoskeletal: Reports: no symptoms. Skin: Reports: no symptoms. Neurological/Psychological: Reports: no symptoms. Hematologic/Endocrine: Reports: no symptoms. Immunologic/Allergic: Reports: no symptoms. All Other Systems: Reviewed and Negative Physical Exam Physical Exam General Appearance: well developed/nourished, alert, awake, mild distress Head: atraumatic, normal appearance Eyes: Bilateral: PERRL, EOMI. Ears, Nose, Throat: normal pharynx, normal ENT inspection, hearing grossly normal Neck: normal inspection, supple, full range of motion Respiratory: decreased breath sounds, rhonchi, wheezing Cardiovascular: regular rate/rhythm, normal peripheral pulses Gastrointestinal: normal bowel sounds, soft, non-tender, no organomegaly Extremities: normal inspection, normal capillary refill, normal range of motion, no edema Neurologic/Psych: no motor/sensory deficits, awake, alert, oriented x 3, normal gait, normal mood/affect Skin: intact, normal color, warm/dry Lymphatic: no anterior cervical rex Core Measures ACS in differential dx? No Severe Sepsis Present: No Septic Shock Present: No Progress Differential Diagnosis: asthma, bronchitis, COPD, pneumonia Plan of Care: Orders Procedure Date/time Status COMPREHENSIVE METABOLIC PANEL 06/22 1044 Complete CBC WITHOUT DIFFERENTIAL 06/22 1044 Complete Current Medications Sig/Maxim Start time Last Medication Dose Stop Time Status Admin Albuterol Sulfate 3 ML ONCE ONE 06/22 1300 UNVr (Proventil) 06/22 1301 Laboratory Tests 06/22/16 1105: Anion Gap 13, Estimated GFR > 60, BUN/Creatinine Ratio 13.8, Glucose 148 H, Calcium 8.8, Total Bilirubin 0.4, AST 15 L, ALT 33, Alkaline Phosphatase 65, Total Protein 6.7, Albumin 4.0, Globulin 2.7, Albumin/Globulin Ratio 1.5, CBC w Diff MAN DIFF ORDERED, RBC 4.61 L, MCV 88.6, MCH 29.3, RDW 14.5, MPV 8.2, Gran % 87.9 H, Lymphocytes % 6.4 L, Monocytes % 4.3, Eosinophils % 1.4, Basophils % 0 L, Absolute Granulocytes 7.7 H, Absolute Lymphocytes 0.6 L, Absolute Monocytes 0.4, Absolute Eosinophils 0.1, Absolute Basophils 0, Platelet Estimate VERIFIED BY SMEAR, Normocytic RBCs VERIFIED, Normochromic RBCs VERIFIED, PUBS MCHC 33.1 Diagnostic Imaging: Viewed by Me: Radiology Read. Discussed w/RAD: Radiology Read. CXR Impression: PATIENT: LEE JEFFRIES PRESENT AGE: 41 PATIENT ACCOUNT NO: [id number] : 75 LOCATION: [facility] ORDERING PHYSICIAN: CLYDE RODRIGUEZ MD SERVICE DATE: 06/22/16 EXAM TYPE: RAD - XRY-CHEST XRAY, PA AND LATERAL EXAMINATION: XR CHEST CLINICAL INFORMATION: Shortness of breath. COMPARISON: Prior chest radiographs, most recently 04/17/2016. TECHNIQUE : Frontal and lateral views of the chest were obtained. FINDINGS: There is stable moderate to marked cardiomegaly. No pulmonary vascular congestion or congestive heart failure is seen. There is mild biapical pleural scarring, right greater than left. The lungs are clear, without infiltrate, effusion or pneumothorax. There is mild hyperinflation. There is no acute osseous abnormality. IMPRESSION: 1. There is cardiomegaly, without congestive heart failure. 2. There is mild hyperinflation. 3. No acute cardiopulmonary disease. 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 <Electronically signed in Other Vendor System> SIGNED BY: ROBERTO DAVILA MD 06/22/16 1110 Initial ED EKG: none Comments: Patient feels much better after nebulizer and wants to go home. Departure Departure Disposition: HOME OR SELF CARE Condition: Stable Clinical Impression Primary Impression: Asthma exacerbation Referrals: TYLER WRAY MD (PCP/Family) Additional Instructions: RETURN FOR ANY CONCERNS Departure Forms: Customer Survey General Discharge Information Critical Care Note Critical Care Note Critical Care Time: non-applicable
[2016-06-22] MEDS ORDERED: SPIRIVA18 MCG INH (11:07)
[2016-06-22] MEDS ORDERED: LEVOFLOXACIN500 M1 PO (11:07)
[2016-06-22] MEDS ORDERED: PROAIR HFA8.5 GM INH (11:08)
[2016-06-22] MEDS ORDERED: IPRAT-ALBUT 0.5-3 ML PO (11:10)
--- NOTE | 2016-06-22 11:10 | RADIOLOGY REPORT ---
EXAMINATION: XR CHEST CLINICAL INFORMATION: Shortness of breath. COMPARISON: Prior chest radiographs, most recently 04/17/2016. TECHNIQUE: Frontal and lateral views of the chest were obtained. FINDINGS: There is stable moderate to marked cardiomegaly. No pulmonary vascular congestion or congestive heart failure is seen. There is mild biapical pleural scarring, right greater than left. The lungs are clear, without infiltrate, effusion or pneumothorax. There is mild hyperinflation. There is no acute osseous abnormality. IMPRESSION: 1. There is cardiomegaly, without congestive heart failure. 2. There is mild hyperinflation. 3. No acute cardiopulmonary disease.
[2016-06-22 11:25] LABS: ABSOLUTE BASOPHIL COUNT 0 /CUMM (0.0-0.2); ABSOLUTE EOSINOPHIL COUNT 0.1 /CUMM (0.0-0.7); ABSOLUTE GRANULOCYTE CT 7.7 /CUMM (1.4-6.5); ABSOLUTE LYMPH COUNT 0.6 /CUMM (1.2-3.4); ABSOLUTE MONOCYTE COUNT 0.4 /CUMM (0.10-0.60); BASOPHIL % 0 % (0.0-2.0); EOSINOPHIL % 1.4 % (0-5); HEMATOCRIT 40.9 % (42-52); MEAN CORPUSCULAR HGB 29.3 PG (27.0-31.0); MEAN CORPUSCULAR HGB CONC 33.1 G/DL (33.0-37.0); MEAN CORPUSCULAR VOLUME 88.6 FL (80.0-94.0); MEAN PLATELET VOLUME 8.2 FL (7.4-10.4); PLATELET COUNT 311 /CUMM (130-400); RBC DISTRIBUTION WIDTH 14.5 % (11.5-14.5); RED BLOOD CELL CT 4.61 /CUMM (4.70-6.10); WHITE BLOOD CELL COUNT 8.8 /CUMM (4.8-10.8)
[2016-06-22 11:29] LABS: GRANULOCYTE % 87.9 % (42.2-75.2)
[2016-06-22 13:31] VITALS: BP 147/86
== END 2016-06-22 13:32 ==
LOC: ERH 10:24
PROVIDERS: Emergency Medicine
DX: J45.901 Unspecified asthma with (acute) exacerbation (principal)
CPT/HCPCS: 1263

== ENCOUNTER 2016-06-25 21:44 | Emergency (ER) | payer OTHER, MEDICARE ==
[~2016-06-25] VITALS: Ht 167.6 cm; Wt 68.0 kg
[~2016-06-25 21:44] MED LIST changes: +IPRAT-ALBUT 0.5-3 ML PO; +LEVOFLOXACIN500 M1 PO; +PROAIR HFA8.5 GM INH; +SPIRIVA18 MCG INH
--- NOTE | 2016-06-25 23:49 | ED DYSPNEA/ASTHMA COMPLAINT ---
History of Present Illness General Chief Complaint: General Adult Stated Complaint: PT BREATHING PROBLEM [id number] Source: patient, old records Exam Limitations: no limitations Vital Signs & Intake/Output Vital Signs & Intake/Output Vital Signs Date Time Temp Pulse Resp B/P B/P Pulse O2 O2 Flow FiO2 Mean Ox Delivery Rate 06/26 0021 98.0 86 18 144/94 95 Room Air 06/25 2358 99 06/25 2225 97.5 83 16 166/103 97 Room Air ED Intake and Output 06/26 0000 06/25 1200 Intake Total Output Total Balance Patient 150 lb Weight Weight Reported by Patient Measurement Method Allergies Coded Allergies: NO KNOWN ALLERGIES (03/07/16) Reconcile Medications Albuterol Sulfate (Proair Hfa) 90 MCG HFA.AER.AD 2 PUF INH Q4-6 PRN PRN SHORTNESS OF BREATH (Reported) Dexlansoprazole (Dexilant) 60 MG CAP.DR.BP 1 CAP PO DAILY GI (Reported) Escitalopram Oxalate (Lexapro) 10 MG TABLET 1 TAB PO DAILY MENTAL HEALTH ( Reported) Fluticasone/Salmeterol (Advair 250-50 Diskus) 250 MCG-50 MCG/DOSE BLST.W.DEV 1 PUF INH BID ASTHMA (Reported) Ipratropium/Albuterol Sulfate (Iprat-Albut 0.5-3(2.5) MG/3 Ml) 0.5 MG-3 MG (2.5 MG BASE)/3 ML AMPUL.NEB 1 VIAL PO 4 TIMES/DAY BREATHING PROBLEMS (Reported) Levofloxacin 500 MG TABLET 1 TAB PO DAILY ANTIBIOTIC, INFECTION (Reported) Lorazepam 0.5 MG TABLET 1 TAB PO TID PRN ANXIETY (Reported) Tiotropium [place] (Spiriva) 18 MCG CAP.W.DEV 1 CAP INH DAILY BREATHING PROBLEMS (Reported) Triage Note: TRIAGE: SOB AND DIFF BREATHING SINCE LAST THURSDAY, SEEN HERE AND STATES "THEY THINK I ASPIRATED SINCE I WAS BORN WITHOUT AN ESOPHAGUS." HAS BEEN ON STEROIDS AND ANTIBIOTIC. DUONEBS X2 TODAY, LAST AN HOUR AND A HALF WITH SLIGHT IMPROVEMENT. O2 97% ON ROOM AIR. SPEAKS IN FULL SENTENCES, WITH NO DISTRESS. MILD DIFFUSE WHEEZING NOTED BILATERALLY. Triage Nurses Notes Reviewed? yes HPI: Patient presents with wheezing. Patient states he uses nebulizers and the wheezing went away however then he moved some boxes and the wheezing came back. Patient was unsure if he could take another nebulizer so he came into the emergency department for evaluation. Patient denies any chest pain or chest tightness. There is no coughing. There is no pain. There are no fevers or chills. There is no dyspnea on exertion or orthopnea. Past History Travel History Traveled to [place] past 21 day No Medical History Any Pertinent Medical History? 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 DVT Relation not specified for: *No pertinent family history Hx Contributory? No Review of Systems Review of Systems Constitutional: Reports: no symptoms. EENTM: Reports: no symptoms. Respiratory: Reports: see HPI, wheezing. Cardiovascular: Reports: no symptoms. GI: Reports: no symptoms. Genitourinary: Reports: no symptoms. Musculoskeletal: Reports: no symptoms. Skin: Reports: no symptoms. Neurological/Psychological: Reports: no symptoms. Hematologic/Endocrine: Reports: no symptoms. Immunologic/Allergic: Reports: no symptoms. All Other Systems: Reviewed and Negative Physical Exam Physical Exam General Appearance: well developed/nourished, alert, awake, anxious, mild distress Head: atraumatic, normal appearance Eyes: Bilateral: PERRL, EOMI. Ears, Nose, Throat: normal pharynx, normal ENT inspection, hearing grossly normal Neck: normal inspection, supple, full range of motion Respiratory: wheezing, GOOD AIR ENTRY Cardiovascular: regular rate/rhythm, normal peripheral pulses Gastrointestinal: normal bowel sounds, soft, non-tender, no organomegaly Extremities: normal inspection, normal capillary refill, normal range of motion, no edema Neurologic/Psych: no motor/sensory deficits, awake, alert, oriented x 3, normal gait, normal mood/affect Skin: intact, normal color, warm/dry Lymphatic: no anterior cervical rex Core Measures ACS in differential dx? No Severe Sepsis Present: No Septic Shock Present: No Progress Differential Diagnosis: asthma, bronchitis, pneumonia Plan of Care: Current Medications Sig/Maxim Start time Last Medication Dose Stop Time Status Admin Ipratropium [place] 2.5 ML ONCE ONE 06/25 2344 UNVr (Atrovent) 06/25 2345 Initial ED EKG: none Comments: WHEEZING RESOLVED AFTER DOUNEB Departure Departure Disposition: HOME OR SELF CARE Condition: Stable Clinical Impression Primary Impression: Dyspnea Referrals: TYLER WRAY MD (PCP/Family) VAIBHAV DUKES MD Additional Instructions: FOLLOW UP WITH DR. DUKES RETURN FOR ANY CONCERNS Departure Forms: Customer Survey General Discharge Information Critical Care Note Critical Care Note Critical Care Time: non-applicable
[2016-06-26 00:21] VITALS: BP 144/94
== END 2016-06-26 00:24 ==
LOC: ERH 21:44
DX: R06.00 Dyspnea, unspecified (principal)
CPT/HCPCS: 1263; 1395

== ENCOUNTER 2016-06-27 18:58 | Emergency (ER) | payer OTHER, MEDICARE | END 2016-06-27 19:12 | disposition admitted as inpatient to this hospital (09) | LOC: ERH 18:58 | DX: R06.02 Shortness of breath (principal) ==

== ENCOUNTER 2016-06-29 07:57 | Emergency (ER) | payer OTHER, MEDICARE ==
[~2016-06-29] VITALS: Ht 167.6 cm; Wt 68.0 kg
[2016-06-29 08:02] VITALS: BP 157/98
--- NOTE | 2016-06-29 09:06 | RADIOLOGY REPORT ---
EXAMINATION: XR CHEST CLINICAL INFORMATION: Recurrent shortness of breath COMPARISON: Chest x-ray dated 06/22/2016. CT of the chest dated 04/17/2016 TECHNIQUE: Frontal and lateral FINDINGS: Heart size is upper limits of normal and unchanged. Pulmonary vascularity is normal. Soft tissue fullness with air-fluid level over the right anterior mediastinum is consistent with the patient's known colonic pull-through and is unchanged. There is some pleural-parenchymal scarring in the right lung apex similar to prior study. Some pleural thickening over the left lateral hemithorax is unchanged. No acute findings are seen in the lungs at this time. There is no pleural effusion or pneumothorax. No acute bony abnormality is seen. IMPRESSION: Chest x-ray shows no acute findings. Chronic changes as described. Soft tissue fullness over the right mediastinum is consistent with the patient's known colonic pull-through procedure and is unchanged.
--- NOTE | 2016-06-29 09:17 | ED DYSPNEA/ASTHMA COMPLAINT ---
History of Present Illness General Chief Complaint: Dyspnea (COPD, CHF, Other) Stated Complaint: SOB, BACK PAIN W/INHALATION Source: patient, old records Exam Limitations: no limitations Vital Signs & Intake/Output Vital Signs & Intake/Output Vital Signs Date Time Temp Pulse Resp B/P B/P Pulse O2 O2 Flow FiO2 Mean Ox Delivery Rate 06/29 0900 95 06/29 0820 96 06/29 0802 98.3 103 18 157/98 98 Room Air Room Air Allergies Coded Allergies: NO KNOWN ALLERGIES (03/07/16) Reconcile Medications Albuterol Sulfate (Proair Hfa) 90 MCG HFA.AER.AD 2 PUF INH Q4-6 PRN PRN SHORTNESS OF BREATH (Reported) Dexlansoprazole (Dexilant) 60 MG CAP.DR.BP 1 CAP PO DAILY GI (Reported) Escitalopram Oxalate (Lexapro) 10 MG TABLET 1 TAB PO DAILY MENTAL HEALTH ( Reported) Fluticasone/Salmeterol (Advair 250-50 Diskus) 250 MCG-50 MCG/DOSE BLST.W.DEV 1 PUF INH BID ASTHMA (Reported) Ipratropium/Albuterol Sulfate (Iprat-Albut 0.5-3(2.5) MG/3 Ml) 0.5 MG-3 MG (2.5 MG BASE)/3 ML AMPUL.NEB 1 VIAL PO 4 TIMES/DAY BREATHING PROBLEMS (Reported) Levofloxacin 500 MG TABLET 1 TAB PO DAILY ANTIBIOTIC, INFECTION (Reported) Lorazepam 0.5 MG TABLET 1 TAB PO TID PRN ANXIETY (Reported) Tiotropium [place] (Spiriva) 18 MCG CAP.W.DEV 1 CAP INH DAILY BREATHING PROBLEMS (Reported) Core Measure Meds Pre-Hospital antibiotics Triage Note: TRIAGE: 41 Y/O MALE PRESENTS C/O SHORTNESS OF BREATH SINCE AWAKENING THIS MORNING - 40 MINUTES PRIOR TO ARRIVAL. NOW ALSO C/O 9/10 POSTERIOR RIDED SIDED RIBS. ROOM AIR SPO2 98%. COMPLETED A NEBULIZER TREATMENT JUST PRIOR TO ARRIVAL. Triage Nurses Notes Reviewed? yes Onset: Just prior to arrival Duration: hour(s):, constant, continues in ED Timing: recent history Severity: mild, moderate Activities at Onset: none Prior Episodes/Possible Cause: illness exposure Modifying Factors: Improves With: rest. Worsens With: movement. Associated Symptoms: cough, wheezing HPI: 10 days prior to admission patient was started on Levaquin and prednisone. Prior to admission he woke with shortness of breath wheezing right mid back pain worse with coughing and deep breath nonradiating improved with rest. He denies fever chills nausea vomiting diarrhea headache dysuria rash bleeding. Past History Travel History Traveled to [place] past 21 day No Medical History Any Pertinent Medical History? 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 DVT Relation not specified for: *No pertinent family history Hx Contributory? No Review of Systems Review of Systems Constitutional: Reports: see HPI, malaise. EENTM: Reports: no symptoms. Respiratory: Reports: see HPI, cough, short of breath, wheezing. Cardiovascular: Reports: no symptoms. GI: Reports: no symptoms. Genitourinary: Reports: no symptoms. Musculoskeletal: Reports: see HPI, back pain. Skin: Reports: no symptoms. Neurological/Psychological: Reports: no symptoms. Hematologic/Endocrine: Reports: no symptoms. Immunologic/Allergic: Reports: no symptoms. All Other Systems: Reviewed and Negative Physical Exam Physical Exam General Appearance: well developed/nourished, alert, awake, anxious, mild distress Head: atraumatic, normal appearance Eyes: Bilateral: normal appearance, PERRL, EOMI. Ears, Nose, Throat: normal pharynx, normal ENT inspection, hearing grossly normal Neck: normal inspection, supple, full range of motion Respiratory: no respiratory distress, decreased breath sounds, wheezing Cardiovascular: regular rate/rhythm, normal peripheral pulses, norml femoral pulses equa Peripheral Pulses: 4+ carotid (R), 4+ carotid (L) Gastrointestinal: normal bowel sounds, soft, non-tender, no organomegaly Extremities: normal inspection, normal capillary refill, normal range of motion, no edema Neurologic/Psych: no motor/sensory deficits, awake, alert, oriented x 3, normal gait, normal mood/affect, developing machine tender II-XII nml as tested Skin: intact, normal color, warm/dry Lymphatic: no anterior cervical rex Core Measures ACS in differential dx? No Severe Sepsis Present: No Septic Shock Present: No Progress Differential Diagnosis: asthma, bronchitis, COPD, pneumonia Plan of Care: [facility]anners chest x-ray Diagnostic Imaging: Viewed by Me: Radiology Read. Discussed w/RAD: Radiology Read. CXR Impression: no acute abnormality, no infiltrates, normal size heart Initial ED EKG: none Departure Departure Disposition: HOME OR SELF CARE Condition: Stable Clinical Impression Primary Impression: Asthma with acute exacerbation in adult Secondary Impressions: Back pain Qualifiers: Back pain location: thoracic back pain Chronicity: acute Back pain laterality: right Qualified Code: M54.6 - Pain in thoracic spine Referrals: TYLER WRAY MD (PCP/Family) Departure Forms: Customer Survey General Discharge Information Critical Care Note Critical Care Note Critical Care Time: non-applicable
== END 2016-06-29 09:20 ==
LOC: ERH 07:57
DX: J45.901 Unspecified asthma with (acute) exacerbation (principal); M54.6 Pain in thoracic spine
CPT/HCPCS: 1263

== ENCOUNTER 2016-07-02 01:16 | Emergency (ER) | payer OTHER, MEDICARE ==
[~2016-07-02] VITALS: Ht 167.6 cm; Wt 68.0 kg
[2016-07-02 01:36] VITALS: BP 148/96
--- NOTE | 2016-07-02 01:54 | ED CARDIAC/CP/PALPITATIONS ---
History of Present Illness General Chief Complaint: Abdominal Pain/Flank Pain Stated Complaint: LT FLANK PAIN Source: patient, old records Exam Limitations: no limitations Vital Signs & Intake/Output Vital Signs & Intake/Output Vital Signs Date Time Temp Pulse Resp B/P B/P Pulse O2 O2 Flow FiO2 Mean Ox Delivery Rate 07/02 136 98 Room Air Room Air 07/03 135 98.0 90 16 148/96 99 Room Air Room Air Allergies Coded Allergies: No Known Allergies (07/02/16) Reconcile Medications Albuterol Sulfate (Proair Hfa) 90 MCG HFA.AER.AD 2 PUF INH Q4-6 PRN PRN SHORTNESS OF BREATH (Reported) Dexlansoprazole (Dexilant) 60 MG CAP.DR.BP 1 CAP PO DAILY GI (Reported) Escitalopram Oxalate (Lexapro) 10 MG TABLET 1 TAB PO DAILY MENTAL HEALTH ( Reported) Fluticasone/Salmeterol (Advair 250-50 Diskus) 250 MCG-50 MCG/DOSE BLST.W.DEV 1 PUF INH BID ASTHMA (Reported) Ipratropium/Albuterol Sulfate (Iprat-Albut 0.5-3(2.5) MG/3 Ml) 0.5 MG-3 MG (2.5 MG BASE)/3 ML AMPUL.NEB 1 VIAL PO 4 TIMES/DAY BREATHING PROBLEMS (Reported) Levofloxacin 500 MG TABLET 1 TAB PO DAILY ANTIBIOTIC, INFECTION (Reported) Lorazepam 0.5 MG TABLET 1 TAB PO TID PRN ANXIETY (Reported) Tiotropium [place] (Spiriva) 18 MCG CAP.W.DEV 1 CAP INH DAILY BREATHING PROBLEMS (Reported) Triage Note: PT TO TRIAGE WITH LEFT AXIAL PAIN, SHARP IN NATURE AND INTERMITTENT, DENIES TRAUAMA. PAIN BEGAN TODAY Triage Nurses Notes Reviewed? yes HPI: Patient presents for evaluation of a left chest pain that began yesterday morning at about 10 AM. Patient states he noticed the pain upon awakening. He states it has been an intermittent sharp pain that lasts anywhere from 5-20 minutes at a time and resolves for anywhere from 15-60 minutes at a time. There is no apparent change with deep inspiration or movement. Yesterday he also had a right sided chest pain that occurred today as well. He denies any known trauma or injury. He does have a history of asthma and has been compliant with his medications. Patient currently has no pain. Past History Travel History Traveled to [place] past 21 day No Medical History Any Pertinent Medical History? 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) Hepatic: NONE Renal: NONE Musculoskeletal: NONE Psychiatric: NONE Endocrine: NONE Blood Disorders: NONE Cancer(s): NONE ANALYTICAL TECH/Reproductive: NONE History of MRSA: No History of VRE: No History of CDIFF: No Tetanus Vaccine: 04/30/15 Surgical History Surgical History: Esophageal transplant with colonic Psychosocial History Who do you live with Patient/Self Services at Home None What is your primary language Wolof Tobacco Use: Never used ETOH Use: denies use Illicit Drug Use: denies illicit drug use Family History Family History, If Any: MOTHER FH: breast cancer uncle (after knee surgery). DVT Relation not specified for: *No pertinent family history Hx Contributory? No Review of Systems Review of Systems Constitutional: Reports: no symptoms. EENTM: Reports: no symptoms. Respiratory: Reports: no symptoms. Cardiovascular: Reports: chest pain. GI: Reports: no symptoms. Genitourinary: Reports: no symptoms. Musculoskeletal: Reports: no symptoms. Skin: Reports: no symptoms. Neurological/Psychological: Reports: no symptoms. Hematologic/Endocrine: Reports: no symptoms. Immunologic/Allergic: Reports: no symptoms. All Other Systems: Reviewed and Negative Physical Exam Physical Exam Cardiovascular: SEE BELOW Comments: Gen.: Well-nourished, well-developed, no acute respiratory distress. Head: Normocephalic, atraumatic. Eyes: Normal inspection bilaterally Ears: Normal inspection bilaterally Nose: Normal inspection Throat/mouth : Moist mucosa Neck: Supple, full range of motion, no goiter Heart: Regular rate and rhythm, no murmurs rubs or gallops Lungs: Clear to auscultation bilaterally with normal air entry Chest: Nontender Back: Normal range of motion Abdomen: Soft, nontender, nondistended, normal bowel sounds Extremities: Normal range of motion grossly, equal radial pulses, no cyanosis clubbing or edema Neurologic: Cranial nerves grossly intact, speech is clear Skin: warm and dry, no dermatomal rashes Psychiatric: Calm, cooperative, no apparent delusions or hallucinations Core Measures ACS in differential dx? No Severe Sepsis Present: No Septic Shock Present: No Progress Differential Diagnosis: ACUTE CORONARY SYNDROME, mi, MUSCULOSKELETAL PAIN Plan of Care: Orders Procedure Date/time Status EKG 07/02 0152 Active Initial ED EKG: NSR, rate (89), J POINT ELEVATIONS Prior EKG: unchanged Comments: Lee this had 5 chest x-rays and CAT scan of the chest this year alone. I do not feel additional imaging studies will be beneficial at this time. 07/02/2016 2:44:11 AM Lee has fallen asleep. 07/02/2016 3:16:13 AM I have updated LEE on his EKG and the fact that he nodded off to sleep. The emergency department. I do not suspect that he is having an acute IN or acute coronary syndrome. Given his clear lungs I doubt an asthma exacerbation pneumonia or effusion. Given the patient's description of the pain I doubt pulmonary embolism. We have discussed the possibility of musculoskeletal pain. I feel he is stable for outpatient management. Departure Departure Disposition: HOME OR SELF CARE Condition: Stable Clinical Impression Primary Impression: Atypical chest pain Referrals: NILS HAILE,TYLER (PCP/Family) Additional Instructions: Follow-up with your primary care doctor this week for reevaluation of your symptoms. Return if any concerns or sudden worsening. Thank you for choosing the [facility] Emergency Department for your care. It was a pleasure to serve you today. Lino Robb M.D. [facility] Departure Forms: Customer Survey General Discharge Information Critical Care Note Critical Care Note Critical Care Time: non-applicable
== END 2016-07-02 03:24 ==
LOC: ERH 01:16
DX: R07.89 Other chest pain (principal)
CPT/HCPCS: 93005; 93010

== ENCOUNTER 2016-07-08 06:13 | Emergency (ER) | payer OTHER, MEDICARE ==
[~2016-07-08] VITALS: Ht 167.6 cm; Wt 68.0 kg
--- NOTE | 2016-07-08 06:39 | ED DYSPNEA/ASTHMA COMPLAINT ---
History of Present Illness General Chief Complaint: Wheezing/Asthma Stated Complaint: DIFF BREATHING,CHEST PRESSURE WITH DEEP BREATH Source: patient Exam Limitations: no limitations Vital Signs & Intake/Output Vital Signs & Intake/Output Vital Signs Date Time Temp Pulse Resp B/P B/P Pulse O2 O2 Flow FiO2 Mean Ox Delivery Rate 07/08 08 98.0 110 20 144/83 95 Room Air 07/08 0753 99 Room Air 07/08 0627 96.8 97 18 156/88 98 Room Air Allergies Coded Allergies: No Known Allergies (07/02/16) Reconcile Medications Albuterol Sulfate (Proair Hfa) 90 MCG HFA.AER.AD 2 PUF INH Q4-6 PRN PRN SHORTNESS OF BREATH (Reported) Dexlansoprazole (Dexilant) 60 MG CAP.DR.BP 1 CAP PO DAILY GI (Reported) Escitalopram Oxalate (Lexapro) 10 MG TABLET 1 TAB PO DAILY MENTAL HEALTH ( Reported) Fluticasone/Salmeterol (Advair 250-50 Diskus) 250 MCG-50 MCG/DOSE BLST.W.DEV 1 PUF INH BID ASTHMA (Reported) Ipratropium/Albuterol Sulfate (Iprat-Albut 0.5-3(2.5) MG/3 Ml) 0.5 MG-3 MG (2.5 MG BASE)/3 ML AMPUL.NEB 1 VIAL PO 4 TIMES/DAY BREATHING PROBLEMS (Reported) Levofloxacin 500 MG TABLET 1 TAB PO DAILY ANTIBIOTIC, INFECTION (Reported) Lorazepam 0.5 MG TABLET 1 TAB PO TID PRN ANXIETY (Reported) Tiotropium [place] (Spiriva) 18 MCG CAP.W.DEV 1 CAP INH DAILY BREATHING PROBLEMS (Reported) Triage Note: 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 STATES HAD CHEST PAIN IN LEFT CHEST "AND THAT DOESN'T USUALLY HAPPEN, BUT YOU KNOW MY DAD JUST 2 WEEKS AGO OF A HEART ATTACK AND THAT IS SO SAD SO I CAME IN TO GET CHECK OUT" O2 SAT 98% ON RA. AT FIRST, DENIED CHEST PAIN AT THIS TIME, BUT THEN RECONSIDERED. STATES PAIN IS 1/10 AND PINCHING IN NATURE Triage Nurses Notes Reviewed? yes Onset: Gradual Duration: day(s):, waxing and waning Timing: recent history Severity: moderate Activities at Onset: none Prior Episodes/Possible Cause: frequent episodes Modifying Factors: Improves With: rest. 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 He states that for the past 2 weeks he has been taking an allergy pill, Michell, for his worsening symptoms. This morning he noted that he had left-sided chest pain that was nonradiating, not associated with diaphoresis or syncopal type symptoms. He notes that 2 weeks ago his father of a myocardial infarction and he became concerned. He presents to the emergency department for further evaluation. He has no other concerns. (MAREK HAILE,KAREN Carey) Past History Travel History Traveled to [place] past 21 day No Medical History Any Pertinent Medical History? 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 DVT Relation not specified for: *No pertinent family history Hx Contributory? No (KAREN TINOCO MD) Review of Systems Review of Systems Constitutional: Reports: no symptoms. EENTM: Reports: no symptoms. Respiratory: Reports: no symptoms. Cardiovascular: Reports: no symptoms. GI: Reports: no symptoms. Genitourinary: Reports: no symptoms. Musculoskeletal: Reports: no symptoms. Skin: Reports: no symptoms. Neurological/Psychological: Reports: no symptoms. Hematologic/Endocrine: Reports: no symptoms. Immunologic/Allergic: Reports: no symptoms. All Other Systems: Reviewed and Negative (KAREN TINOCO MD) Physical Exam Physical Exam General Appearance: well developed/nourished, no apparent distress Head: atraumatic, normal appearance Eyes: Bilateral: normal appearance. Ears, Nose, Throat: normal pharynx Neck: normal inspection, supple, full range of motion Respiratory: minimal wheeze bilaterally Cardiovascular: regular rate/rhythm Gastrointestinal: normal bowel sounds, soft, non-tender Extremities: normal inspection, normal capillary refill, normal range of motion, no edema Neurologic/Psych: no motor/sensory deficits, awake, alert, oriented x 3 Skin: intact, normal color, warm/dry Core Measures ACS in differential dx? No Severe Sepsis Present: No Septic Shock Present: No (MAREK HAILE,KAREN Carey) Progress Differential Diagnosis: asthma, bronchitis, COPD, pulmonary embolism Plan of Care: Orders Procedure Date/time Status CTA CHEST 07/08 817 Active TROPONIN LEVEL 07/08 638 Complete D-DIMER 07/08 638 Complete COMPREHENSIVE METABOLIC PANEL 07/08 638 Complete CBC WITHOUT DIFFERENTIAL 07/08 638 Complete EKG 07/08 638 Active Laboratory Tests 07/08/16 0715: Anion Gap 10, Estimated GFR > 60, BUN/Creatinine Ratio 11.3, Glucose 97, Calcium 9.1, Total Bilirubin 0.4, AST 24, ALT 55, Alkaline Phosphatase 51, Troponin I < 0.01, Total Protein 6.3, Albumin 3.7, Globulin 2.6, Albumin/Globulin Ratio 1.4, D-Dimer 1033 H, CBC w Diff NO MAN DIFF REQ, RBC 4.50 L, MCV 88.5, MCH 29.4, RDW 14.8 H, MPV 8.5, Gran % 58.5, Lymphocytes % 26.6, Monocytes % 10.7 H, Eosinophils % 3.9, Basophils % 0.3, Absolute Granulocytes 4.0, Absolute Lymphocytes 1.8, Absolute Monocytes 0.7 H, Absolute Eosinophils 0.3, Absolute Basophils 0, PUBS MCHC 33.3 7:15 am patient signed out to me by Dr. Tinooc. Pending labs, cxr, ekg. 8:32 AM Elevated d-dimer over 1000. Patient refusing CT angio and states that he has had 4 or 5 of these individuals were negative. Last piece done in March. He states pain is worse when he coughs and when he touches it and feels musculoskeletal in origin. Troponin and EKG are negative. Patient is anxious for discharge at this time and states will follow-up with her doctor. (YESICA MIX MD) Diagnostic Imaging: Viewed by Me: Radiology Read. Discussed w/RAD: Radiology Read. Initial ED EKG: pending Hand-Off Endorsed To: YESICA MIX MD Endorsed Time: 0700 Pending: EKG, labs, Xray (KAREN TINOCO MD) CXR Impression: PATIENT: LEE JEFFRIES PRESENT AGE: 41 PATIENT ACCOUNT NO: [id number] : 75 LOCATION: [facility] ORDERING PHYSICIAN: KAREN TINOCO MD SERVICE DATE: 07/08/16 EXAM TYPE: RAD - XRY- PORTABLE CHEST XRAY EXAMINATION: XR PORTABLE CHEST CLINICAL INFORMATION: Anterior chest pain. COMPARISON: Chest radiograph dated 06/29/2016. TECHNIQUE: Portable frontal view of the chest was obtained. FINDINGS: The trachea is in normal anatomic position. The cardiomediastinal silhouette is unchanged in configuration and size. No pneumonia. No pneumothorax or pleural effusion. The osseous structures are grossly intact. IMPRESSION: Stable examination. No acute abnormality. 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 <Electronically signed in Other Vendor System> SIGNED BY: GEE TREVINO MD 07/08/1645 Initial ED EKG: NSR (YESICA MIX MD) Departure Departure Condition: Stable Clinical Impression Primary Impression: Dyspnea Referrals: TYLER WRAY MD (PCP/Family) Departure Forms: Customer Survey General Discharge Information (KAREN TINOCO MD) Departure Time of Disposition: 831 Disposition: HOME OR SELF CARE Additional Instructions: Follow-up with your doctor in the office. Take ibuprofen as needed for pain. Return as needed. (YESICA MIX MD) Critical Care Note Critical Care Note Critical Care Time: non-applicable (KAREN TINOCO MD)
[2016-07-08 07:37] LABS: ABSOLUTE BASOPHIL COUNT 0 /CUMM (0.0-0.2); ABSOLUTE EOSINOPHIL COUNT 0.3 /CUMM (0.0-0.7); ABSOLUTE LYMPH COUNT 1.8 /CUMM (1.2-3.4); ABSOLUTE MONOCYTE COUNT 0.7 /CUMM (0.10-0.60); BASOPHIL % 0.3 % (0.0-2.0); EOSINOPHIL % 3.9 % (0-5); GRANULOCYTE % 58.5 % (42.2-75.2); HEMATOCRIT 39.8 % (42-52); MEAN CORPUSCULAR HGB 29.4 PG (27.0-31.0); MEAN CORPUSCULAR HGB CONC 33.3 G/DL (33.0-37.0); MEAN CORPUSCULAR VOLUME 88.5 FL (80.0-94.0); MEAN PLATELET VOLUME 8.5 FL (7.4-10.4); PLATELET COUNT 248 /CUMM (130-400); RBC DISTRIBUTION WIDTH 14.8 % (11.5-14.5); WHITE BLOOD CELL COUNT 6.9 /CUMM (4.8-10.8)
--- NOTE | 2016-07-08 07:45 | RADIOLOGY REPORT ---
EXAMINATION: XR PORTABLE CHEST CLINICAL INFORMATION: Anterior chest pain. COMPARISON: Chest radiograph dated 06/29/2016. TECHNIQUE: Portable frontal view of the chest was obtained. FINDINGS: The trachea is in normal anatomic position. The cardiomediastinal silhouette is unchanged in configuration and size. No pneumonia. No pneumothorax or pleural effusion. The osseous structures are grossly intact. IMPRESSION: Stable examination. No acute abnormality.
[2016-07-08 08:19] VITALS: BP 144/83
== END 2016-07-08 08:43 ==
LOC: ERH 06:13
PROVIDERS: Pediatrics
DX: R06.00 Dyspnea, unspecified (principal); R07.89 Other chest pain
CPT/HCPCS: 1263; 93005; 93010

== ENCOUNTER 2016-07-09 22:10 | Emergency (ER) | payer OTHER, MEDICARE ==
[~2016-07-09] VITALS: Ht 167.6 cm; Wt 68.0 kg
--- NOTE | 2016-07-09 22:49 | ED DYSPNEA/ASTHMA COMPLAINT ---
History of Present Illness General Chief Complaint: General Adult Stated Complaint: PT HAVING PROBLEM BREATHING,ACID REFEX, Source: patient, old records Exam Limitations: no limitations Vital Signs & Intake/Output Vital Signs & Intake/Output Vital Signs Date Time Temp Pulse Resp B/P B/P Pulse O2 O2 Flow FiO2 Mean Ox Delivery Rate 07/09 2308 96 07/09 2306 96 Room Air 07/09 2219 98.3 96 18 140/96 95 Room Air Allergies Coded Allergies: No Known Allergies (07/02/16) Reconcile Medications Albuterol Sulfate (Proair Hfa) 90 MCG HFA.AER.AD 2 PUF INH Q4-6 PRN PRN SHORTNESS OF BREATH (Reported) Dexlansoprazole (Dexilant) 60 MG CAP.DR.BP 1 CAP PO DAILY GI (Reported) Escitalopram Oxalate (Lexapro) 10 MG TABLET 1 TAB PO DAILY MENTAL HEALTH ( Reported) Fluticasone/Salmeterol (Advair 250-50 Diskus) 250 MCG-50 MCG/DOSE BLST.W.DEV 1 PUF INH BID ASTHMA (Reported) Ipratropium/Albuterol Sulfate (Iprat-Albut 0.5-3(2.5) MG/3 Ml) 0.5 MG-3 MG (2.5 MG BASE)/3 ML AMPUL.NEB 1 VIAL PO 4 TIMES/DAY BREATHING PROBLEMS (Reported) Levofloxacin 500 MG TABLET 1 TAB PO DAILY ANTIBIOTIC, INFECTION (Reported) Lorazepam 0.5 MG TABLET 1 TAB PO TID PRN ANXIETY (Reported) Tiotropium [place] (Spiriva) 18 MCG CAP.W.DEV 1 CAP INH DAILY BREATHING PROBLEMS (Reported) Triage Note: PT TO TRIAGE WITH C/O DIFFICULTY 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 ALSO C/O OF EPIGASTRIC PAIN x5HR. HX OF ASTHMA,GERD. VSS. PT TO [place] FOR EKG. Triage Nurses Notes Reviewed? yes Onset: Abrupt Duration: SINCE 5 PM Timing: multiple episodes today Severity: mild, moderate Activities at Onset: PLAYING A VIDEO GAME Associated Symptoms: DYSPNEA, ANXIETY HPI: 49-year-old male with history of esophageal atresia who presents to the ER with chief complaint of shortness of breath that started around 5:00 while he was playing a video game. He states he waited instead of the edema was going to use a breathing treatment when he started to fell some sharp left anterior chest pain. Patient was just in the ER for similar symptoms a few days ago. Cardiac workup was negative. He refused CT angiogram at that time. Patient had an elevated d-dimer. History of [address] angiogram last in March which were all negative for PE. He states the pain is sharp and worse with breathing. He that it was reproducible. No fever or chills. He did an extra dose of his Dexilant tonight for his reflux which he thought the pain was performed which did not help. Past History Travel History Traveled to [place] past 21 day No Medical History Any Pertinent Medical History? 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 DVT Relation not specified for: *No pertinent family history Hx Contributory? No Review of Systems Review of Systems Constitutional: Denies: chills, fever. EENTM: Reports: no symptoms. Respiratory: Reports: short of breath. Denies: cough, sputum production. Cardiovascular: Reports: chest pain. Denies: palpitations, peripheral edema, syncope. GI: Denies: abdominal pain. Genitourinary: Reports: no symptoms. Musculoskeletal: Reports: no symptoms. Skin: Reports: no symptoms. Neurological/Psychological: Reports: anxiety. Hematologic/Endocrine: Denies: bruising, bleeding. Immunologic/Allergic: Denies: splenectomy. All Other Systems: Reviewed and Negative Physical Exam Physical Exam General Appearance: well developed/nourished, alert, awake, anxious, mild distress Head: atraumatic, normal appearance Eyes: Bilateral: normal appearance, PERRL, EOMI. Ears, Nose, Throat: normal pharynx, normal ENT inspection, hearing grossly normal Neck: normal inspection, supple, full range of motion Respiratory: decreased breath sounds, wheezing Cardiovascular: regular rate/rhythm, TENDER LEFT ANTERIOR CHEST WALL Peripheral Pulses: 2+ radial (R), 2+ radial (L) Gastrointestinal: FIRM, SURGICAL SCARS Neurologic/Psych: no motor/sensory deficits, awake, alert, oriented x 3, ANXIOUS Skin: intact, normal color, warm/dry Core Measures ACS in differential dx? Yes ASA ordered for poss ACS? No-ACS ruled out Severe Sepsis Present: No Septic Shock Present: No Progress Differential Diagnosis: AMI, pulmonary embolism, pneumonia, unstable angina, PLEURISSY Plan of Care: Orders Procedure Date/time Status RT ED ORDERS 07/09 2252 Active EKG 07/09 2222 Active Patient slightly improved after DuoNeb and GI cocktail. He states he was pretty much pain-free until reevaluation. Ibuprofen ordered. Again I discussed the possibility of PE although the patient has had multiple negative scans. He declined CT angiogram at this point. I requested him despite his lung specialist regarding further follow-up. (DOMINGUEZ HAILE,YESICA) Initial ED EKG: NSR Departure Departure Time of Disposition: 2349 Disposition: HOME OR SELF CARE Condition: Stable Clinical Impression Primary Impression: Chest pain at rest Referrals: TYLER WRAY MD (PCP/Family) Additional Instructions: Please continue your regular medications and follow-up with your lung specialist regarding her symptoms. Return as needed. Departure Forms: Customer Survey General Discharge Information Critical Care Note Critical Care Note Critical Care Time: non-applicable
[2016-07-09 23:58] VITALS: BP 136/86
== END 2016-07-10 00:01 ==
LOC: ERH 22:10
DX: R07.89 Other chest pain (principal)
CPT/HCPCS: 1263; 93005; 93010

== ENCOUNTER 2016-07-17 04:48 | Emergency (ER) | payer OTHER, MEDICARE ==
[2016-07-17 04:57] VITALS: BP 164/100
--- NOTE | 2016-07-17 05:05 | ED CARDIAC/CP/PALPITATIONS ---
History of Present Illness General Chief Complaint: General Adult Stated Complaint: RIGHT SIDE PAIN WHEN I TAKE A BREATH PER PT Source: patient Exam Limitations: no limitations Vital Signs & Intake/Output Vital Signs & Intake/Output Vital Signs Date Time Temp Pulse Resp B/P B/P Pulse O2 O2 Flow FiO2 Mean Ox Delivery Rate 07/17 0457 95.7 98 16 164/100 100 Room Air Room Air Allergies Coded Allergies: No Known Allergies (07/02/16) Reconcile Medications Albuterol Sulfate (Proair Hfa) 90 MCG HFA.AER.AD 2 PUF INH Q4-6 PRN PRN SHORTNESS OF BREATH (Reported) Dexlansoprazole (Dexilant) 60 MG CAP.DR.BP 1 CAP PO DAILY GI (Reported) Escitalopram Oxalate (Lexapro) 10 MG TABLET 1 TAB PO DAILY MENTAL HEALTH ( Reported) Fluticasone/Salmeterol (Advair 250-50 Diskus) 250 MCG-50 MCG/DOSE BLST.W.DEV 1 PUF INH BID ASTHMA (Reported) Ibuprofen 600 MG TABLET 1 TAB PO TID PRN pain with food Ipratropium/Albuterol Sulfate (Iprat-Albut 0.5-3(2.5) MG/3 Ml) 0.5 MG-3 MG (2.5 MG BASE)/3 ML AMPUL.NEB 1 VIAL PO 4 TIMES/DAY BREATHING PROBLEMS (Reported) Levofloxacin 500 MG TABLET 1 TAB PO DAILY ANTIBIOTIC, INFECTION (Reported) Lorazepam 0.5 MG TABLET 1 TAB PO TID PRN ANXIETY (Reported) Tiotropium [place] (Spiriva) 18 MCG CAP.W.DEV 1 CAP INH DAILY BREATHING PROBLEMS (Reported) Triage Note: 41YO MALETO RM 3 W/CO R SIDED RIB AREA PAIN SINCE YESTERDAY. Triage Nurses Notes Reviewed? yes Onset: Gradual Duration: day(s):, waxing and waning Timing: recent history Quality/Severity: aching, stabbing Location: right sided chest wall Radiation: no radiation Activities at Onset: none Prior Chest Pain/Card Workup: no prior chest pain Modifying Factors: Improves With: rest. Worsens With: palpation. Associated Symptoms: cough, rib cage pain HPI: 41-year-old gentleman history of asthma and reflux, presents with right sided focal rib cage tenderness. He notes that he has had these symptoms for the past day or 2. He notes focal pain on the right side of his chest, worse when he takes deep inspiration or when he palpates the region. He has no fever chills nausea vomiting diarrhea. He has no lower extremity swelling. He has not had recent travel. He is otherwise well. Past History Travel History Traveled to [place] past 21 day No Medical History Any Pertinent Medical History? 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 DVT Relation not specified for: *No pertinent family history Hx Contributory? No Review of Systems Review of Systems Constitutional: Reports: no symptoms. EENTM: Reports: no symptoms. Respiratory: Reports: no symptoms. Cardiovascular: Reports: no symptoms. GI: Reports: no symptoms. Genitourinary: Reports: no symptoms. Musculoskeletal: Reports: no symptoms. Skin: Reports: no symptoms. Neurological/Psychological: Reports: no symptoms. Hematologic/Endocrine: Reports: no symptoms. Immunologic/Allergic: Reports: no symptoms. All Other Systems: Reviewed and Negative Physical Exam Physical Exam General Appearance: well developed/nourished, no apparent distress Head: atraumatic, normal appearance Eyes: Bilateral: normal appearance, PERRL, EOMI. Ears, Nose, Throat: normal pharynx, normal ENT inspection Neck: normal inspection, supple, full range of motion, JVD Respiratory: normal breath sounds, no respiratory distress, right sided chest wall tenderness in an area approximately 3 x 3 or 4 x 4 cm on the right side of the chest. Cardiovascular: regular rate/rhythm Gastrointestinal: normal bowel sounds, soft, non-tender Back: normal inspection, normal range of motion Extremities: normal inspection, normal capillary refill, normal range of motion, no edema Neurologic/Psych: no motor/sensory deficits, awake, alert, oriented x 3 Core Measures ACS in differential dx? No Severe Sepsis Present: No Septic Shock Present: No Progress Differential Diagnosis: rib cage pain Plan of Care: Discussed at great length with patient. He has focal pain in the area approximately 3 x 3 cm on the right service chest, worse with palpation. I doubt this represents pneumothorax or other serious her neurovascular [place] illnesses. He is safe for discharge with close follow-up and advised. I gave him a prescription for ibuprofen and states and Flexeril and advise close follow-up. Initial ED EKG: none Departure Departure Disposition: HOME OR SELF CARE Condition: Stable Clinical Impression Primary Impression: Costochondritis, acute Referrals: TYLER WRAY MD (PCP/Family) Departure Forms: Customer Survey General Discharge Information Prescriptions: Current Visit Scripts Ibuprofen 1 TAB PO TID PRN pain #30 TAB with food Critical Care Note Critical Care Note Critical Care Time: non-applicable
[2016-07-17] MEDS ORDERED: IBUPROFEN600 M1 PO (05:06)
== END 2016-07-17 05:12 ==
LOC: ERH 04:48
DX: M94.0 Chondrocostal junction syndrome [Tietze] (principal)

== ENCOUNTER 2016-07-20 14:36 | Emergency (ER) | payer OTHER, MEDICARE ==
[~2016-07-20 14:36] MED LIST changes: +IBUPROFEN600 M1 PO
[2016-07-20 14:40] VITALS: BP 155/100
--- NOTE | 2016-07-20 14:51 | ED DYSPNEA/ASTHMA COMPLAINT ---
History of Present Illness General Chief Complaint: Dyspnea (COPD, CHF, Other) Stated Complaint: SOB Source: patient, old records Exam Limitations: no limitations Vital Signs & Intake/Output Vital Signs & Intake/Output Vital Signs Date Time Temp Pulse Resp B/P B/P Pulse O2 O2 Flow FiO2 Mean Ox Delivery Rate 07/20 1458 94 07/20 1453 95 Room Air 07/20 1440 98.1 114 16 155/100 99 Room Air Room Air Allergies Coded Allergies: No Known Allergies (07/20/16) Reconcile Medications Albuterol Sulfate (Proair Hfa) 90 MCG HFA.AER.AD 2 PUF INH Q4-6 PRN PRN SHORTNESS OF BREATH (Reported) Dexlansoprazole (Dexilant) 60 MG CAP.DR.BP 1 CAP PO DAILY GI (Reported) Escitalopram Oxalate (Lexapro) 10 MG TABLET 1 TAB PO DAILY MENTAL HEALTH ( Reported) Fluticasone/Salmeterol (Advair 250-50 Diskus) 250 MCG-50 MCG/DOSE BLST.W.DEV 1 PUF INH BID ASTHMA (Reported) Ibuprofen 600 MG TABLET 1 TAB PO TID PRN pain with food Ipratropium/Albuterol Sulfate (Iprat-Albut 0.5-3(2.5) MG/3 Ml) 0.5 MG-3 MG (2.5 MG BASE)/3 ML AMPUL.NEB 1 VIAL PO 4 TIMES/DAY BREATHING PROBLEMS (Reported) Levofloxacin 500 MG TABLET 1 TAB PO DAILY ANTIBIOTIC, INFECTION (Reported) Lorazepam 0.5 MG TABLET 1 TAB PO TID PRN ANXIETY (Reported) Tiotropium [place] (Spiriva) 18 MCG CAP.W.DEV 1 CAP INH DAILY BREATHING PROBLEMS (Reported) Triage Note: PT TO TRIAGE WITH BACK PAIN AND SOB [facility] E[facility]ORN[facility]. STATES HE HAD A BREATHING TREATMENT THIS MORNING WITHOUT RELEIF. LUNGS CTA, AND NO DISTRESS NOTED. Triage Nurses Notes Reviewed? yes HPI: Patient was in his usual state of health until this morning when he woke up feeling short of breath. He used his nebulizer and took prednisone and then went back to bed. When he woke up again, he still felt short of breaht so he came to the ER for a duoneb. Similar symptoms multiple tumes in the past. Pt also states that he has had pain in his right shoulder blade for the past month. The pain is sharp and worsens with inspiration. He states that he felt like he choked on his hamburger last night. He said that he was coughing for 20 minutes but then felt better and remained feeling fine until this morning. Past History Travel History Traveled to [place] past 21 day No Medical History Any Pertinent Medical History? 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 DVT Relation not specified for: *No pertinent family history Hx Contributory? No Review of Systems Review of Systems Constitutional: Reports: no symptoms. EENTM: Reports: no symptoms. Respiratory: Reports: see HPI, short of breath. Cardiovascular: Reports: no symptoms. GI: Reports: no symptoms. Musculoskeletal: Reports: see HPI, back pain. Neurological/Psychological: Reports: no symptoms. Immunologic/Allergic: Reports: no symptoms. Physical Exam Physical Exam General Appearance: well developed/nourished, alert, awake, anxious, mild distress Head: atraumatic, normal appearance Eyes: Bilateral: PERRL, EOMI. Ears, Nose, Throat: normal pharynx, normal ENT inspection Neck: normal inspection, supple, full range of motion, no jvd Respiratory: normal breath sounds, chest non-tender, no respiratory distress, lungs clear Cardiovascular: regular rate/rhythm, normal peripheral pulses Neurologic/Psych: no motor/sensory deficits, awake, alert, oriented x 3, normal gait, normal mood/affect Lymphatic: no anterior cervical rex Core Measures ACS in differential dx? No Severe Sepsis Present: No Septic Shock Present: No Progress Differential Diagnosis: asthma, bronchitis, COPD, pulmonary embolism, pneumonia, pneumothorax Plan of Care: Current Medications Sig/Maxim Start time Last Medication Dose Stop Time Status Admin Albuterol Sulfate 3 ML ONCE ONE 05/28 1500 AC 07/20 (Proventil) 07/20 1501 1457 Ipratropium [place] 2.5 ML ONCE ONE 07/20 1500 AC 07/20 (Atrovent) 07/20 1501 1457 Initial ED EKG: none Comments: Pt has had 2 cxrs this month already so withhold obtaining another one. His lungs are clear with good air entry and he is afebrile. Departure Departure Disposition: HOME OR SELF CARE Condition: Stable Clinical Impression Primary Impression: Dyspnea Referrals: TYLER WRAY MD (PCP/Family) Additional Instructions: RETURN FOR ANY CONCERNS Departure Forms: Customer Survey General Discharge Information Critical Care Note Critical Care Note Critical Care Time: non-applicable
== END 2016-07-20 15:25 ==
LOC: ERH 14:36
DX: R06.00 Dyspnea, unspecified (principal)
CPT/HCPCS: 1263

== ENCOUNTER 2016-07-21 07:55 | Emergency (ER) | payer OTHER, MEDICARE ==
[~2016-07-21] VITALS: Ht 167.6 cm; Wt 68.0 kg
[2016-07-21 07:58] VITALS: BP 165/102
--- NOTE | 2016-07-21 09:28 | ED GENERAL ADULT ---
See Addendum History of Present Illness General Chief Complaint: General Adult Stated Complaint: ? OVERDOSE PREDNISONE BY ACCIDENT Source: patient, old records Exam Limitations: no limitations Vital Signs & Intake/Output Vital Signs & Intake/Output Vital Signs Date Time Temp Pulse Resp B/P B/P Pulse O2 O2 Flow FiO2 Mean Ox Delivery Rate 07/21 0758 97.9 114 18 165/102 96 Room Air Allergies Coded Allergies: No Known Allergies (07/20/16) Reconcile Medications Albuterol Sulfate (Proair Hfa) 90 MCG HFA.AER.AD 2 PUF INH Q4-6 PRN PRN SHORTNESS OF BREATH (Reported) Dexlansoprazole (Dexilant) 60 MG CAP.DR.BP 1 CAP PO DAILY GI (Reported) Escitalopram Oxalate (Lexapro) 10 MG TABLET 1 TAB PO DAILY MENTAL HEALTH ( Reported) Fluticasone/Salmeterol (Advair 250-50 Diskus) 250 MCG-50 MCG/DOSE BLST.W.DEV 1 PUF INH BID ASTHMA (Reported) Ibuprofen 600 MG TABLET 1 TAB PO TID PRN pain with food Ipratropium/Albuterol Sulfate (Iprat-Albut 0.5-3(2.5) MG/3 Ml) 0.5 MG-3 MG (2.5 MG BASE)/3 ML AMPUL.NEB 1 VIAL PO 4 TIMES/DAY BREATHING PROBLEMS (Reported) Levofloxacin 500 MG TABLET 1 TAB PO DAILY ANTIBIOTIC, INFECTION (Reported) Lorazepam 0.5 MG TABLET 1 TAB PO TID PRN ANXIETY (Reported) Tiotropium [place] (Spiriva) 18 MCG CAP.W.DEV 1 CAP INH DAILY BREATHING PROBLEMS (Reported) Triage Note: 41 YO MALE TO TRIAGE C/O ?TAKING 80MG OF PREDNISONE INSTEAD OF 40MG PERSCRIBED. PT STATES "MY HEART IS RACING BUT IT MIGHT JUST BE MY ANXIERTY" DENEIS PAIN HR 116 AT THIS TIME. Triage Nurses Notes Reviewed? yes Onset: Just prior to arrival Duration: minute(s):, constant, continues in ED Timing: recent history Injury Environment: home Severity: mild No Modifying Factors: none Associated Symptoms: palpitations HPI: Prior to admission patient may have taken an extra dose of 20 or 40 mg complaining of palpitations anxiety. He denies fever chills nausea vomiting diarrhea abdominal pain chest pain shortness breath headache dysuria rash bleeding. Past History Travel History Traveled to [place] past 21 day No Medical History Any Pertinent Medical History? 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 DVT Relation not specified for: *No pertinent family history Hx Contributory? No Review of Systems Review of Systems Constitutional: Reports: no symptoms. EENTM: Reports: no symptoms. Respiratory: Reports: no symptoms. Cardiovascular: Reports: see HPI, palpitations. GI: Reports: no symptoms. Genitourinary: Reports: no symptoms. Musculoskeletal: Reports: no symptoms. Skin: Reports: no symptoms. Neurological/Psychological: Reports: no symptoms. Hematologic/Endocrine: Reports: no symptoms. Immunologic/Allergic: Reports: no symptoms. All Other Systems: Reviewed and Negative Physical Exam Physical Exam General Appearance: well developed/nourished, alert, awake, anxious, mild distress Head: atraumatic, normal appearance Eyes: Bilateral: normal appearance, PERRL, EOMI. Ears, Nose, Throat: normal pharynx, normal ENT inspection, hearing grossly normal Neck: normal inspection, supple, full range of motion, no midline tenderness Respiratory: normal breath sounds, chest non-tender, no respiratory distress, quiet respiration, lungs clear Cardiovascular: regular rate/rhythm, normal peripheral pulses, norml femoral pulses equa Peripheral Pulses: 4+ carotid (R), 4+ carotid (L) Gastrointestinal: normal bowel sounds, soft, non-tender, no organomegaly Back: normal inspection, normal range of motion Extremities: normal inspection, normal capillary refill, normal range of motion, no edema Neurologic/Psych: no motor/sensory deficits, awake, alert, oriented x 3, normal gait, normal mood/affect Reflexes: 2+: bicep (R), bicep (L). Skin: intact, normal color Lymphatic: no anterior cervical rex Core Measures ACS in differential dx? No CVA/TIA Diagnosis: No Severe Sepsis Present: No Septic Shock Present: No Progress Differential Diagnoses I considered the following diagnoses in my evaluation of the patient: Medication overdose Plan of Care: Orders Procedure Date/time Status EKG 07/21 801 Active Initial ED EKG: none Departure Departure Time of Disposition: 929 Disposition: HOME OR SELF CARE Condition: Stable Clinical Impression Primary Impression: Accidental medication overdose Qualifiers: Encounter type: initial encounter Qualified Code: T50.901A - Poisoning by unspecified drugs, medicaments and biological substances, accidental (unintentional), initial encounter Referrals: TYLER WRAY MD (PCP/Family) Departure Forms: Customer Survey General Discharge Information Critical Care Note Critical Care Note Critical Care Time: non-applicable
== END 2016-07-21 09:41 ==
LOC: ERH 07:55
DX: T38.0X1A Poisoning by glucocorticoids and synthetic analogues, accidental (unintentional), initial encounter (principal); R00.2 Palpitations; R41.9 Unspecified symptoms and signs involving cognitive functions and awareness
CPT/HCPCS: 93005; 93010

== ENCOUNTER 2016-08-12 21:06 | Emergency (ER) | payer OTHER, MEDICARE ==
[2016-08-12 21:27] VITALS: BP 167/99
[2016-08-12] MEDS ORDERED: ALLEGRA ALLERG180 M1 PO (22:09)
[2016-08-12] MEDS ORDERED: ALBUTEROL2.5 MG/3 M INH/SOL (22:09)
--- NOTE | 2016-08-12 22:12 | ED DYSPNEA/ASTHMA COMPLAINT ---
History of Present Illness General Chief Complaint: Dyspnea (COPD, CHF, Other) Stated Complaint: PT IS FOR CHEST PRESSURE AND SOB Source: patient, old records Exam Limitations: no limitations Vital Signs & Intake/Output Vital Signs & Intake/Output Vital Signs Date Time Temp Pulse Resp B/P B/P Pulse O2 O2 Flow FiO2 Mean Ox Delivery Rate 08/12 2232 97 08/12 2127 97.6 96 16 167/99 97 Room Air Allergies Coded Allergies: No Known Allergies (07/20/16) Reconcile Medications Albuterol Sulfate (Proair Hfa) 90 MCG HFA.AER.AD 2 PUF INH Q4-6 PRN PRN SHORTNESS OF BREATH (Reported) Albuterol Sulfate 2.5 MG/3 ML (0.083 %) VIAL.NEB 1 Vial INH/RUTHY Q6H PRN RESPIRATORY (Reported) Dexlansoprazole (Dexilant) 60 MG MELVIN.BP 1 CAP PO DAILY GI (Reported) Escitalopram Oxalate (Lexapro) 10 MG TABLET 1 TAB PO DAILY MENTAL HEALTH ( Reported) Fexofenadine HCl ([place] Allergy) 180 MG TABLET 1 TAB PO DAILY ALLERGIES ( Reported) Fluticasone/Salmeterol (Advair 250-50 Diskus) 250 MCG-50 MCG/DOSE BLST.W.DEV 1 PUF INH BID ASTHMA (Reported) Ipratropium/Albuterol Sulfate (Iprat-Albut 0.5-3(2.5) MG/3 Ml) 0.5 MG-3 MG (2.5 MG BASE)/3 ML AMPUL.NEB 1 VIAL PO 4 TIMES/DAY BREATHING PROBLEMS (Reported) Lorazepam 0.5 MG TABLET 1 TAB PO TID PRN ANXIETY (Reported) Triage Note: C/O SOB AND CHEST PAIN, MIDSTERNAL/EPIGASTRIC AND REPRODUCIBLE. PT CALLED DR ARMENDARIZ GI DUE TO ESOPHAGEAL STRETCHING CAUSING ISSUES, HX ESOPHAGEAL RECONSTRUCTION DUE TO ESOPH ATRESIA. HAS BEEN BLENDING FOOD FOR 5-6 DAYS NOW BUT HAD LARGE MEAL TODAY AND HAS BEEN EXPERIENCING SOB AND CP SINCE. USED DUONEB AT 3:15 WITH MINIMAL RELIEF. 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 O2 SAT 97% RA BUT HYPERTENSIVE IN TRIAGE. SPEAKING IN FULL SENTENCES WITHOUT DIFFICULTY. EKG COMPLETED IN TRIAGE Triage Nurses Notes Reviewed? yes HPI: Patient presents for evaluation of dyspnea and chest pressure that began at 820 this evening while drinking iced coffee. Patient describes his symptoms as mild to moderate in intensity, constant since abrupt onset of fluctuating in intensity. He tried an albuterol nebulizer at about 840 this evening with some improvement. He denies any associated fever, cold symptoms or leg swelling. He states he has been suffering from similar episodes such as this recently although this last episode seemed to be the most severe. He also feels that this is likely due to a solid meal he ate about 2 hours prior to the onset of symptoms. He has been blending his food due to a history of esophageal problems. He states his GI specialist told him to discontinue that and he therefore ate a solid meal. Past History Travel History Traveled to [place] past 21 day No Medical History Any Pertinent Medical History? 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 DVT Relation not specified for: *No pertinent family history Hx Contributory? No Review of Systems Review of Systems Constitutional: Reports: no symptoms. EENTM: Reports: no symptoms. Respiratory: Reports: see HPI. Cardiovascular: Reports: no symptoms. GI: Reports: no symptoms. Genitourinary: Reports: no symptoms. Musculoskeletal: Reports: no symptoms. Skin: Reports: no symptoms. Neurological/Psychological: Reports: no symptoms. Hematologic/Endocrine: Reports: no symptoms. Immunologic/Allergic: Reports: no symptoms. All Other Systems: Reviewed and Negative Physical Exam Physical Exam Respiratory: see below Comments: Gen.: Well-nourished, well-developed, no acute respiratory distress. Head: Normocephalic, atraumatic. Eyes: Normal inspection bilaterally Ears: Normal inspection bilaterally Nose: Normal inspection Throat/mouth : Moist mucosa Neck: Supple, full range of motion, no goiter Heart: Regular rate and rhythm, no murmurs rubs or gallops Lungs: Mild scattered end expiratory wheezing and rhonchi Chest: Nontender Back: Normal range of motion Abdomen: Soft, nontender, nondistended, normal bowel sounds Extremities: Normal range of motion grossly, equal radial pulses, no cyanosis clubbing or edema Neurologic: Cranial nerves grossly intact, speech is clear Skin: warm and dry Psychiatric: Calm, cooperative, no apparent delusions or hallucinations Core Measures ACS in differential dx? No Severe Sepsis Present: No Septic Shock Present: No Progress Differential Diagnosis: asthma, bronchitis, CHF, COPD, pneumonia Plan of Care: Orders Procedure Date/time Status EKG 08/12 2134 Active Initial ED EKG: NSR, rate (86), mild j point elevations Prior EKG: unchanged Comments: Tony has elected to have a DuoNeb treatment with reevaluation prior to workup. 08/12/2016 10:59:56 PM Tony is feeling considerably better after the nebulizer treatment. Auscultation of the lungs reveals improved air entry and resolution of wheezing. Tony has declined any further evaluation or treatment here in the emergency department. He feels comfortable returning home. Departure Departure Disposition: HOME OR SELF CARE Condition: Stable Clinical Impression Primary Impression: Acute asthma exacerbation Qualifiers: Asthma severity: mild intermittent Qualified Code: J45.21 - Mild intermittent asthma with (acute) exacerbation Referrals: TYLER WRAY MD (PCP/Family) Additional Instructions: Continue your current asthma treatments. Follow-up with your asthma doctor this week. Return if any concerns or sudden worsening. Departure Forms: Customer Survey General Discharge Information Critical Care Note Critical Care Note Critical Care Time: non-applicable
== END 2016-08-12 23:05 ==
LOC: ERH 21:06
DX: J45.901 Unspecified asthma with (acute) exacerbation (principal); R07.89 Other chest pain
CPT/HCPCS: 93005; 93010

== ENCOUNTER 2016-09-02 00:43 | Inpatient (IN) | payer OTHER, MEDICARE ==
[~2016-09-02] VITALS: Ht 167.6 cm; Wt 68.0 kg
[~2016-09-02 00:43] MED LIST changes: +ALBUTEROL2.5 MG/3 M INH/SOL; +ALLEGRA ALLERG180 M1 PO
--- NOTE | 2016-09-02 00:54 | NUR ---
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 PATIENT REPORTS FEELING SOB PAST FEW DAYS, HX ASTHMA, TOOK 40MG STEROIDS YESTERDAY, BREATHING TX X3 YESTERDAY AND BREATHING TX X2 TONIGHT W/O RELIEF. LAST PO INTAKE "BLENDED CHICKEN NOODLE SOUP."
--- NOTE | 2016-09-02 01:10 | ED DYSPNEA/ASTHMA COMPLAINT ---
History of Present Illness General Chief Complaint: Dyspnea (COPD, CHF, Other) Stated Complaint: DIFF BREATHING Source: patient, old records Exam Limitations: no limitations Vital Signs & Intake/Output Vital Signs & Intake/Output Vital Signs Date Time Temp Pulse Resp B/P B/P Pulse O2 O2 Flow FiO2 Mean Ox Delivery Rate 09/02 2000 96 Nasal 4.0L Cannula 09/02 1600 Nasal 4.0L Cannula 09/02 1427 97.9 93 18 122/80 99 Nasal 4.0L Cannula 09/02 1415 Nasal 5.0L Cannula 09/02 1415 98 Nasal 4.0L Cannula 09/02 1102 98.6 95 20 140/80 96 Nasal 5.0L Cannula 09/02 1014 98.2 103 20 139/79 96 Nasal 5.0L Cannula 09/02 0827 97 Nasal 5.0L Cannula 09/02 0743 98.4 98 18 146/76 97 Nasal 5.0L Cannula 09/02 0739 98.4 98 18 146/76 97 Nasal 5.0L Cannula 09/02 0636 95 Nasal 5.0L Cannula 09/02 0541 98.6 101 21 136/80 96 Nasal 5.0L Cannula 09/02 0348 98.2 114 20 130/81 96 Nasal 5.0L Cannula 09/02 0328 119 96 Nasal 5.0L Cannula 09/02 0241 128 20 95 Nasal 5.0L Cannula 09/02 0204 96 Nasal 5.0L Cannula 09/02 0144 137 09/02 0111 92 Nasal 5.0L Cannula 09/02 0054 98.0 142 20 156/89 93 Nasal 5.0L Cannula Allergies Coded Allergies: No Known Allergies (07/20/16) Reconcile Medications Albuterol Sulfate (Proair Hfa) 90 MCG HFA.AER.AD 2 PUF INH Q4-6 PRN PRN SHORTNESS OF BREATH (Reported) Albuterol Sulfate 2.5 MG/3 ML (0.083 %) VIAL.NEB 1 Vial INH/RUTHY Q6H PRN RESPIRATORY (Reported) Dexlansoprazole (Dexilant) 60 MG MELVIN.BP 1 CAP PO DAILY GI (Reported) Escitalopram Oxalate (Lexapro) 10 MG TABLET 1 TAB PO DAILY MENTAL HEALTH ( Reported) Fexofenadine HCl (Michell Allergy) 180 MG TABLET 1 TAB PO DAILY ALLERGIES ( Reported) Fluticasone/Salmeterol (Advair 250-50 Diskus) 250 MCG-50 MCG/DOSE BLST.W.DEV 1 PUF INH BID ASTHMA (Reported) Ipratropium/Albuterol Sulfate (Iprat-Albut 0.5-3(2.5) MG/3 Ml) 0.5 MG-3 MG (2.5 MG BASE)/3 ML AMPUL.NEB 1 VIAL PO 4 TIMES/DAY BREATHING PROBLEMS (Reported) Lorazepam 0.5 MG TABLET 1 TAB PO TID PRN ANXIETY (Reported) Triage Note: TRIAGE: PATIENT TO ER FROM HOME 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 PATIENT REPORTS FEELING SOB PAST FEW DAYS, HX ASTHMA, TOOK 40MG STEROIDS YESTERDAY, BREATHING TX X3 YESTERDAY AND BREATHING TX X2 TONIGHT W/O RELIEF. LAST PO INTAKE "BLENDED CHICKEN NOODLE SOUP." Triage Nurses Notes Reviewed? yes Onset: Gradual Duration: day(s): (4), worse persistent since (THIS MORNING) Timing: recent history Severity: moderate, severe Activities at Onset: sleep Associated Symptoms: cough, fever, weakness HPI: 41-year-old male presents to the ER from home for chief complaint of severe shortness of breath which woke him up from sleep a few hours ago. He states last night around 9:00 he had blended soup and a needed. He felt like something was stuck in his neck. Last several days the patient states that he has had difficulty breathing. 2 days ago he used 3 treatment breathing treatments every 5 hours with some relief. Yesterday he started prednisone 40 mg as he thought that was writing to you. Patient, and also with Dr. Suarez. Denies any fever or chills. Denies any chest pain. Patient presents to triage tachycardic, oxygen saturation 65% on room air. Patient placed on 5 L nasal cannula and oxygen saturation increased to the 90s. History of esophageal atresia with colonic pull through. Past History Travel History Traveled to [place] past 21 day No Medical History Any Pertinent Medical History? 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 DVT Relation not specified for: *No pertinent family history Hx Contributory? No Review of Systems Review of Systems Constitutional: Reports: chills, fever. EENTM: Reports: no symptoms. Respiratory: Reports: cough, short of breath, sputum production. Cardiovascular: Denies: chest pain. GI: Denies: abdominal pain, nausea, vomiting. Genitourinary: Denies: discharge, dysuria. Musculoskeletal: Reports: no symptoms. Skin: Reports: no symptoms. Neurological/Psychological: Reports: anxiety. Denies: confusion. Hematologic/Endocrine: Denies: bruising, bleeding, polyuria, polydipsia. Immunologic/Allergic: Reports: no symptoms. All Other Systems: Reviewed and Negative Physical Exam Physical Exam General Appearance: well developed/nourished, alert, awake, anxious, moderate distress, severe distress Head: atraumatic, normal appearance Eyes: Bilateral: normal appearance, PERRL, EOMI. Ears, Nose, Throat: normal pharynx, normal ENT inspection, hearing grossly normal Neck: normal inspection, supple, JVD Respiratory: decreased breath sounds, accessory muscle use, rhonchi, wheezing, respiratory distress Cardiovascular: tachycardia Peripheral Pulses: 2+ radial (R), 2+ radial (L) Gastrointestinal: normal bowel sounds, soft, non-tender Extremities: normal inspection, normal capillary refill, normal range of motion, no edema Neurologic/Psych: no motor/sensory deficits, awake, alert, oriented x 3 Skin: intact, normal color, warm/dry Core Measures ACS in differential dx? No Severe Sepsis Present: No Septic Shock Present: No ED Sepsis Exam Date of Focused Sepsis Exam: 09/02/16 Time of Focused Sepsis Exam: 0134 Sepsis Cardiac Exam: Tachycardia Sepsis Resp Exam: Ronchi Sepsis Cap Refill Exam: <2 Sec Sepsis Peripheral Pulse Exam: Normal Sepsis Peripheral Pulse Location: Radial Sepsis Skin Color Exam: Normal for Ethnicity Skin Temp/Moisture Exam: Warm/Dry Progress Differential Diagnosis: bronchitis, CHF, pulmonary embolism, pneumonia, ASPIRATION PNEUMONIA Plan of Care: Orders Procedure Date/time Status CBC WITHOUT DIFFERENTIAL 09/03 0600 Active Regular Diet 09/02 D Active Nothing by Mouth 09/02 B Complete RT: Reevaluation 09/02 1414 Active RT: Evaluation 09/02 1414 Active OXYGEN SETUP (GEN) 09/02 1400 Complete Change service to 09/02 0734 Active Teach/Educate 09/02 06 Active Pain Treatment and Response 09/02 06 Active Nutritional Intake, Monitor 09/02 06 Active Isolation 09/03 627 Active Patient Care Conference 09/03 627 Active Activity/Ambulation 09/02 06 Active CBC WITHOUT DIFFERENTIAL 09/02 0600 Complete BASIC ELECTROLYTES PLUS BUN&CR 09/02 0600 Complete Precautions 09/02 0512 Active LOWER RESPIRATORY CULTURE 09/02 0512 Active TRC EVALUATION (GEN) 09/02 0455 Complete AEROSOL (GEN) 09/02 0455 Active Pathway - chart 09/02 0455 Active House Staff 09/02 0455 Active Patient Data 09/02 0455 Active Code Status 09/02 0455 Active ED Holding Orders 09/02 0334 Active Admit to inpatient 09/02 0334 Active Vital Signs 09/02 0334 Active Code Status 09/02 0334 Complete RT ED ORDERS 09/02 0119 Active BLOOD CULTURE 09/02 0109 Active LACTIC ACID 09/02 0109 Complete COMPREHENSIVE METABOLIC PANEL 09/02 0109 Complete CBC WITHOUT DIFFERENTIAL 09/02 0109 Complete RT ED ORDERS 09/02 0108 Active EKG 09/02 0055 Active Intake & Output 09/02 0051 Active SWALLOW EVALUATION 09/02 UNK Active Evaluate Swallowing 09/02 UNK Complete THERAPIST ORDERS 09/02 UNK Complete VTE Mechanical Prophylaxis 09/02 UNK Active NUTRITIONAL CONSULT 09/02 UNK Active Current Medications Sig/Maxim Start time Last Medication Dose Stop Time Status Admin Prednisone 10 MG DAILY 09/18 1000 AC 09/20 1001 Prednisone 20 MG DAILY 09/15 1000 AC 09/17 1001 Prednisone 30 MG DAILY 09/12 1000 AC 09/14 1001 Prednisone 40 MG DAILY 09/09 1000 AC 09/11 1001 Prednisone 50 MG DAILY 09/06 1000 AC 09/08 1001 Prednisone 60 MG DAILY 09/03 1000 CAN 09/21 0959 Prednisone 60 MG DAILY 09/03 1000 AC 09/05 1001 Albuterol Sulfate 3 ML BID 09/02 1410 AC 09/02 (Proventil) 195 Ipratropium Gilbert 2.5 ML BID 09/02 1410 AC 09/02 (Atrovent) 195 Budesonide/ 2 PUF BID 09/02 1000 AC 09/02 Formoterol Fumarate 0934 (Symbicort) Enoxaparin Sodium 40 MG DAILY 09/02 1000 AC 09/02 (Lovenox) 0934 Escitalopram Oxalate 10 MG DAILY 09/02 1000 AC 09/02 (Lexapro) 0934 Ampicillin Sodium/ 3,000 MG Q6H 09/02 0745 AC 09/02 Sulbactam Sodium 2000 (Unasyn) Sodium Chloride 100 ML (Normal Saline 0.9%) Omeprazole 40 MG DAILY AC 09/02 0700 AC 09/02 (Prilosec) 0736 Acetaminophen 650 MG Q6P PRN 09/02 0500 AC 09/02 (Tylenol) 1546 Acetaminophen/ 1 TAB Q6P PRN 09/02 0500 AC Hydrocodone Bitart (Vicodin) Albuterol Sulfate 3 ML Q6P PRN 09/02 0500 AC (Proventil) Albuterol Sulfate 2 PUF Q4-6 PRN PRN 09/02 0500 AC (Ventolin) Ipratropium Gilbert 2.5 ML Q6P PRN 09/02 0500 AC (Atrovent) Lorazepam 0.5 MG TID PRN 09/02 0500 AC 09/02 (Ativan) 09/09 Laboratory Tests 09/02/16 0736: Lactic Acid Cancelled 09/02/16 0538: Anion Gap 7, Estimated GFR > 60, BUN/Creatinine Ratio 11.7, CBC w Diff MAN DIFF ORDERED, RBC 4.35 L, MCV 88.7, MCH 29.1, RDW 14.8 H, MPV 8.1, Gran % 96.8 H, Lymphocytes % 2.1 L, Monocytes % 1.1 L, Eosinophils % 0, Basophils % 0 L, Absolute Granulocytes 19.7 H, Absolute Lymphocytes 0.4 L, Absolute Monocytes 0.2, Absolute Eosinophils 0, Absolute Basophils 0, Platelet Estimate ADEQUATE, Polychromasia 1+, Ovalocytes 1+, PUBS MCHC 32.8 L 07/11/17 0436: Lactic Acid Cancelled 09/02/16 0409: Lactic Acid Cancelled 09/02/16 0205: Anion Gap 10, Estimated GFR > 60, BUN/Creatinine Ratio 11.4, Glucose 163 H, Lactic Acid 1.5, Calcium 9.0, Total Bilirubin 0.6, AST 27, ALT 48, Alkaline Phosphatase 59, Total Protein 6.5, Albumin 4.1, Globulin 2.4, Albumin/Globulin Ratio 1.7 09/02/16 013: CBC w Diff MAN DIFF ORDERED, RBC 4.84, MCV 88.4, MCH 29.3, RDW 14.8 H, MPV 8.9, Gran % 81.6 H, Lymphocytes % 11.6 L, Monocytes % 6.1, Eosinophils % 0.3, Basophils % 0.4, Absolute Granulocytes 14.3 H, Segmented Neutrophils 71, Absolute Lymphocytes 2.0, Lymphocytes 20 L, Monocytes 9, Absolute Monocytes 1.1 H, Absolute Eosinophils 0.1, Absolute Basophils 0.1, Platelet Estimate ADEQUATE , Normocytic RBCs VERIFIED, Normochromic RBCs VERIFIED, PUBS MCHC 33.2 Microbiology 09/03 511 LOWER RESP: Respiratory Culture - COLB 09/03 511 LOWER RESP: Gram Stain - COLB 09/02 141 BLOOD: Blood Culture - RECD 09/02 129 BLOOD: Blood Culture - RECD DUONEB, IV SOLUMEDROL, LABS, CXR. REPEAT DUONEB VIA AEROGEN- PATIENT NOW IMPROVING. STILL TACHYPNEIC, IMPROVED AERATION. STILL REQUIRING OXYGEN. WILL ADMIT TO HOSPITALIST SERVICE. (DOMINGUEZ HAILE,YESICA) Diagnostic Imaging: Viewed by Me: Radiology Read. Discussed w/RAD: Radiology Read. Radiology Impression: PATIENT: LEE JEFFRIES PRESENT AGE : 41 PATIENT ACCOUNT NO: [id number] : 75 LOCATION: [facility] ORDERING PHYSICIAN: YESICA MIX MD SERVICE DATE: 09/02/16 EXAM TYPE: RAD - XRY -SOFT TISSUE NECK EXAMINATION: XR SOFT TISSUE NECK CLINICAL INDICATION: Dyspnea. Stridor. COMPARISON: None TECHNIQUE: 2 views of the soft tissue neck were obtained. FINDINGS: Soft tissue films of the neck demonstrate a normal larynx, pharynx and upper trachea. No soft tissue swelling or opaque foreign body is demonstrated. The epiglottis is unremarkable. The cervical spine is not well evaluated. IMPRESSION: Patent airway. No prevertebral soft tissue swelling. DICTATED BY: JENNIFER TIWARI MD DATE/TIME DICTATED:09/02/16209 DERRICK BOAT RUNNER:DARIO DATE/TIME TRANSCRIBED:09/02/16209 CONFIDENTIAL, DO NOT COPY WITHOUT APPROPRIATE AUTHORIZATION. <Electronically signed in Other Vendor System> SIGNED BY: JENNIFER TIWARI MD 09/02/16213 CXR Impression: PATIENT: LEE JEFFRIES PRESENT AGE: 41 PATIENT ACCOUNT NO: [id number] : 75 LOCATION: [facility] ORDERING PHYSICIAN: YESICA MIX MD SERVICE DATE: 09/02/16 EXAM TYPE: RAD - XRY-PORTABLE CHEST XRAY EXAMINATION: XR PORTABLE CHEST CLINICAL INFORMATION: Woke up choking. Shortness of breath. COMPARISON: 07/08/2016 TECHNIQUE: Portable frontal view of the chest was obtained. FINDINGS: The lungs are well expanded. Hazy basilar opacities. No pleural effusion or pneumothorax. The cardiomediastinal silhouette is unchanged. IMPRESSION: Hazy basilar opacities noted which could represent atelectasis or less likely developing pneumonia. DICTATED BY: JENNIFER TIWARI MD DATE/TIME DICTATED:09/02/16208 DERRICK BOAT RUNNER:DARIO DATE/TIME TRANSCRIBED:09/02/16208 CONFIDENTIAL, DO NOT COPY WITHOUT APPROPRIATE AUTHORIZATION. <Electronically signed in Other Vendor System> SIGNED BY: JENNIFER TIWARI MD 09/02/16213 Initial ED EKG: SINUS TACHYCARDIA Departure Departure Time of Disposition: 333 Disposition: STILL A PATIENT Condition: Stable Clinical Impression Primary Impression: Aspiration pneumonia Referrals: TYLER WRAY MD (PCP/Family) Departure Forms: Customer Survey General Discharge Information Admission Note Spoke With: KALYANI PEMBERTON MD Documentation of Exam: Documentation of any treatments & extenuating circumstances including Concerns Regarding Discharge (functional status, medication knowledge or non-compliance, living conditions, etc.) that warrant an admission rather than observation: [TRC /NEBS, IV ABX, FLUIDS, CONSIDER STEROIDS, PULMONARY CONSULTATION] Critical Care Note Critical Care Note Critical Care Time: 30-74 min
--- NOTE | 2016-09-02 01:13 | NUR ---
PATIENT MEDICATED W/ DUONEB X1, REMAINS W/ LUNG SOUND WHEEZING INSP AND EXP THROUGHOUT. PATIENT PLACED ON BUSINESS SUPPORT PROFESSIONAL, HR:144 SINUS TACH, PATIENT NOTED W/ INC WOB AND INTERMITTENT TRIPODING. PATIIENT SKIN SLIGHTLY DIAPHORETIC, PATIENT REPORTS "I'M REALLY SCARED." RESP AT BEDSIDE. EKG COMPLETED. CIERA FERRIS AT BEDSIDE FOR IV EST/ MEDS.
--- NOTE | 2016-09-02 01:44 | NUR ---
PT EVALUATED BY DR. MIX. IV#20G INSERTED ON RIGHT UPPER ARM. SOLUMEDROL IVP, UNASYN 3G UP PIGGYBACKED WITH NS ORDERED. BLOOD CULTURES X 2 DRAWN PRIOR TO UNASYN. BREATHING TREATMENT IN PROGRESS. CHEST X RAY DONE AT BEDSIDE.
[2016-09-02 02:03] LABS: ABSOLUTE BASOPHIL COUNT 0.1 /CUMM (0.0-0.2); ABSOLUTE EOSINOPHIL COUNT 0.1 /CUMM (0.0-0.7); ABSOLUTE GRANULOCYTE CT 14.3 /CUMM (1.4-6.5); ABSOLUTE MONOCYTE COUNT 1.1 /CUMM (0.10-0.60); BASOPHIL % 0.4 % (0.0-2.0); EOSINOPHIL % 0.3 % (0-5); GRANULOCYTE % 81.6 % (42.2-75.2); HEMATOCRIT 42.8 % (42-52); MEAN CORPUSCULAR HGB 29.3 PG (27.0-31.0); MEAN CORPUSCULAR HGB CONC 33.2 G/DL (33.0-37.0); MEAN CORPUSCULAR VOLUME 88.4 FL (80.0-94.0); MEAN PLATELET VOLUME 8.9 FL (7.4-10.4); PLATELET COUNT 400 /CUMM (130-400); RBC DISTRIBUTION WIDTH 14.8 % (11.5-14.5); RED BLOOD CELL CT 4.84 /CUMM (4.70-6.10); WHITE BLOOD CELL COUNT 17.5 /CUMM (4.8-10.8)
--- NOTE | 2016-09-02 02:14 | RADIOLOGY REPORT ---
EXAMINATION: XR SOFT TISSUE NECK CLINICAL INDICATION: Dyspnea. Stridor. COMPARISON: None TECHNIQUE: 2 views of the soft tissue neck were obtained. FINDINGS: Soft tissue films of the neck demonstrate a normal larynx, pharynx and upper trachea. No soft tissue swelling or opaque foreign body is demonstrated. The epiglottis is unremarkable. The cervical spine is not well evaluated. IMPRESSION: Patent airway. No prevertebral soft tissue swelling.
--- NOTE | 2016-09-02 02:14 | RADIOLOGY REPORT ---
EXAMINATION: XR PORTABLE CHEST CLINICAL INFORMATION: Woke up choking. Shortness of breath. COMPARISON: 07/08/2016 TECHNIQUE: Portable frontal view of the chest was obtained. FINDINGS: The lungs are well expanded. Hazy basilar opacities. No pleural effusion or pneumothorax. The cardiomediastinal silhouette is unchanged. IMPRESSION: Hazy basilar opacities noted which could represent atelectasis or less likely developing pneumonia.
--- NOTE | 2016-09-02 03:30 | NUR ---
LEE JEFFRIES Nurse Note by: MAURI ARREDONDO I agree with the RUG SETTER AXMINSTER findings/evaluation of this patient's condition. Entered by: MAURI ARREDONDO Date: 09/02/16 Time: 033
--- NOTE | 2016-09-02 03:52 | NUR ---
PATIENT EVALUATED BY MD ROMEO.
--- NOTE | 2016-09-02 04:07 | NUR ---
DR BORJA AT BEDSIDE
--- NOTE | 2016-09-02 05:17 | History & Physical ---
HUONG SLAUGHTER 09/02/16 0501: General Information and HPI MD Statement: I have seen and personally examined LEE JEFFRIES and documented this H&P. The patient is a 41 year old M who presented with a patient stated chief complaint of worsening shortness of breath and wheezing for 2 days []. Source of Information: patient Exam Limitations: no limitations History of Present Illness: 41-year-old male with history of esophageal atresia status post reconstruction surgery, asthma, recurrent aspiration, severe GERD came with chief complaint of worsening shortness of breath that woke him up from sleeping in the middle of night. According to patient he had the severe underlying GERD and frequent choking on food for quite a while and he is following up with his GI regularly who is considering another reconstruction surgery while refering him to surgeon as well as considering placing feeding tube. He has frequent ER visits with choking on food and frequent aspirations. He choked on food 2 days ago while eating chips and next morning when he woke up he was achy and feverish. He took analgesic and also the milligrams of prednisone but his shortness of breath which she developed during the day was getting worse and he took another 20 mg without any significant improvement. While he was sleeping last night he woke up with gasping and feeling that something is stuck in his throat as well as he was very short of breath that may came come to ER. Denied productive cough, palpitations, chest pain, headache, nausea, vomiting, diarrhea or constipation. Vital signs on admission were temperature 98.0, pulse 142, respiratory rate 20, blood pressure 156/89 and he was saturating 93% requiring 5 L nasal cannula oxygen. Allergies/Medications Allergies: Coded Allergies: No Known Allergies (07/20/16) Home Med list Albuterol Sulfate (Proair Hfa) 90 MCG HFA.AER.AD 2 PUF INH Q4-6 PRN PRN SHORTNESS OF BREATH (Reported) Albuterol Sulfate 2.5 MG/3 ML (0.083 %) VIAL.NEB 1 Vial INH/RUTHY Q6H PRN RESPIRATORY (Reported) Dexlansoprazole (Dexilant) 60 MG MELVIN.BP 1 CAP PO DAILY GI (Reported) Escitalopram Oxalate (Lexapro) 10 MG TABLET 1 TAB PO DAILY MENTAL HEALTH ( Reported) Fexofenadine HCl (Michell Allergy) 180 MG TABLET 1 TAB PO DAILY ALLERGIES ( Reported) Fluticasone/Salmeterol (Advair 250-50 Diskus) 250 MCG-50 MCG/DOSE BLST.W.DEV 1 PUF INH BID ASTHMA (Reported) Ipratropium/Albuterol Sulfate (Iprat-Albut 0.5-3(2.5) MG/3 Ml) 0.5 MG-3 MG (2.5 MG BASE)/3 ML AMPUL.NEB 1 VIAL PO 4 TIMES/DAY BREATHING PROBLEMS (Reported) Lorazepam 0.5 MG TABLET 1 TAB PO TID PRN ANXIETY (Reported) Compliance With Home Meds: GOOD 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 DVT Relation not specified for: *No pertinent family history Psychosocial History Who Do You Live With? partner Services at Home: None Functional Ability ADLs Independent: dressing, eating, toileting, bathing. Ambulation: independent IADLs Independent: shopping, housework, finances, food prep, telephone, transportation , medication admin. Review of Systems Review of Systems Constitutional: Reports: fever. EENTM: Denies: double vision, visual changes. Cardiovascular: Denies: chest pain, edema, orthopena. Respiratory: Reports: short of breath, wheezing. GI: Reports: see HPI. Genitourinary: Denies: dysuria, frequency. Musculoskeletal: Denies: back pain, gout. Exam & Diagnostic Data Last 24 Hrs of Vital Signs/I&O Vital Signs Date Time Temp Pulse Resp B/P B/P Pulse O2 O2 Flow FiO2 Mean Ox Delivery Rate 09/02 0348 98.2 114 20 130/81 96 Nasal 5.0L Cannula 09/02 0328 119 96 Nasal 5.0L Cannula 09/02 0241 128 20 95 Nasal 5.0L Cannula 09/02 0204 96 Nasal 5.0L Cannula 09/02 0144 137 09/02 0111 92 Nasal 5.0L Cannula 09/02 0054 98.0 142 20 156/89 93 Nasal 5.0L Cannula Intake & Output 09/02 0800 09/02 0000 09/01 1600 Intake Total 1100 Output Total Balance 1100 Intake, IV 1100 Patient 153 lb Weight Weight Reported by Patient Measurement Method Physical Exam General Appearance Alert, Oriented X3, Cooperative, No Acute Distress HEENT Atraumatic, PERRLA Neck Supple, No JVD Cardiovascular Normal S1, Normal S2, ttachycardia Lungs diffuse wheezing throughout lung hair with bilateral basal crackles Abdomen Soft, No Tenderness Extremities No Clubbing, No Cyanosis, No Edema Last 24 Hrs of Labs/Irving: Laboratory Tests 09/02/16 0409: Lactic Acid Cancelled 09/02/16 020: Anion Gap 10, Estimated GFR > 60, BUN/Creatinine Ratio 11.4, Glucose 163 H, Lactic Acid 1.5, Calcium 9.0, Total Bilirubin 0.6, AST 27, ALT 48, Alkaline Phosphatase 59, Total Protein 6.5, Albumin 4.1, Globulin 2.4, Albumin/Globulin Ratio 1.7 09/02/16 013: CBC w Diff MAN DIFF ORDERED, RBC 4.84, MCV 88.4, MCH 29.3, RDW 14.8 H, MPV 8.9, Gran % 81.6 H, Lymphocytes % 11.6 L, Monocytes % 6.1, Eosinophils % 0.3, Basophils % 0.4, Absolute Granulocytes 14.3 H, Segmented Neutrophils 71, Absolute Lymphocytes 2.0, Lymphocytes 20 L, Monocytes 9, Absolute Monocytes 1.1 H, Absolute Eosinophils 0.1, Absolute Basophils 0.1, Platelet Estimate ADEQUATE , Normocytic RBCs VERIFIED, Normochromic RBCs VERIFIED, PUBS MCHC 33.2 Microbiology 09/02 014 BLOOD: Blood Culture - RECD 09/02 129 BLOOD: Blood Culture - RECD Diagnostic Data CXR Results EXAMINATION: XR PORTABLE CHEST CLINICAL INFORMATION: Woke up choking. Shortness of breath. COMPARISON: 07/08/2016 TECHNIQUE: Portable frontal view of the chest was obtained. FINDINGS: The lungs are well expanded. Hazy basilar opacities. No pleural effusion or pneumothorax. The cardiomediastinal silhouette is unchanged. IMPRESSION: Hazy basilar opacities noted which could represent atelectasis or less likely developing pneumonia. Other Results SERVICE DATE: 09/02/16 EXAM TYPE: RAD - XRY-SOFT TISSUE NECK EXAMINATION: XR SOFT TISSUE NECK CLINICAL INDICATION: Dyspnea. Stridor. COMPARISON: None TECHNIQUE: 2 views of the soft tissue neck were obtained. FINDINGS: Soft tissue films of the neck demonstrate a normal larynx, pharynx and upper trachea. No soft tissue swelling or opaque foreign body is demonstrated. The epiglottis is unremarkable. The cervical spine is not well evaluated. IMPRESSION: Patent airway. No prevertebral soft tissue swelling. Assessment/Plan Assessment: 41-year-old male with history of esophageal atresia status post reconstruction surgery, asthma, recurrent aspiration, severe GERD came with chief complaint of worsening shortness of breath that woke him up from sleeping in the middle of night and found to have aspiration pneumonia on chest x-ray. We will admit patient on general medical floor and we will address following problems Problem list 1. Worsening shortness of breath most likely due to underlying aspiration pneumonia 2. Severe GERD with history of underlying as of facial itching ACS status post reconstruction surgery 3. Leukocytosis most likely due to underlying aspiration pneumonia 4. History of asthma 5. History of anxiety/depression Plan 1. We will admit on general medical floor 2. We will trend WBCs and will follow up on blood cultures. We'll send sputum culture as well. 3. We will Him nothing by mouth and we will confirm with his wet end tester to proceed with swallow evaluation concerting underlying anatomy. 4. We'll request gastroenterology consultation in a.m. and also will request records from his own wet end tester Dr. Francisco Hernandez in [place] 5. Will start him on Unasyn 6. Aspiration precautions 7. Dr. Suarez is his dock superintendent we will request consultation in a.m. 8. Patient was given 125 mg of Solu-Medrol in ED we will hold further steroids on him are now but he doesn't improve we could consider starting him later 9. TRC and nebulization 10. We will continue his home medications including Lexapro, nebulizations and Advair 11. We will continue him on proton pump inhibitors Patient is full code Nothing by mouth Pharmacological DVT prophylaxis As Ranked By This Provider Problem List: 1. Aspiration pneumonia Core Measures/Miscellaneous Acute Coronary Syndrome ACS Diagnosis: No Cerebrovascular Accident CVA/TIA Diagnosis: No Congestive Heart Failure CHF Diagnosis: No VTE (View Protocol) VTE Risk Factors: Age > 40 No Mech VTE prophylaxis d/t: No contraindications No VTE Pharm Prophylaxis d/t: No contraindications VTE Diagnosis: No VTE Type: NONE VTE Confirmed by (Test): NONE Sepsis (View Protocol) Severe Sepsis Present: No Septic Shock Septic Shock Present: No Miscellaneous Documentation Attending Case Discussed With: Dr. Causey Primary Care Physician: TYLER WRAY MD Patient sees these Specialists GI Level of Patient Care: General Medicine Resident Review Statement Resident Statement: examined this patient Other Findings: as above NILAYELIZAAlex 09/02/16 0623: Attending MD Review Statement Attending Statement Attending MD Statement: examined this patient, discuss w/resident/PA/PANEL EDGE SEALER, agreed w/resident/PA/PANEL EDGE SEALER, reviewed EMR data (avail), reviewed images, amended to note Attending Assessment/Plan: CC: Acute worsening of shortness of breath PMH: Esophageal atresia S/P colonic pull-through surgery, asthma Patient woke up from the sleep feeling choking, unable to breathe, feeling something stuck in his throat, so he came to ER. Last 2 days patient has been noticing worsening shortness of breath with labored breathing, has been using his nebulization treatment and prednisone more than usual. Patient recalls an episode of choking that happened 2 days back. Denies any chest pain, palpitations, chest tightness, dizziness, loss of consciousness, fever or chills at home. Patient gets recurrent pneumonia secondary to his esophageal problem, according to his physician the transplanted esophagus is getting more and more dilated and acid reflux is causing the problem. Has been worsened since last 2 years, probably will get evaluated for surgery. Patient is on chronic antibiotic for rosacea Vitals: T max 98.2, HR 140 at arrival improved to 100, RR 20s, blood pressure 156/89, saturating 92% on 5 L nasal cannula On exam: A O 3, cooperative, in moderate respiratory distress, neck supple, JVD normal, no lymphadenopathy, mucosa moist, no focal neurological deficit, no dependent edema, no obvious skin rashes or inflammation CVS: S1-S2, RRR. RS: Bilateral coarse crackles in all lung hair, wheezing anterior upper lung ahir, no stridor. Abdomen: Soft, NT, ND, bowel sounds present. Labs: WBC 17.5, neutrophils 81%, hemoglobin 14.2, hematocrit 42.8, platelet 400, BMP, LFT unremarkable CXR: Hazy basilar opacities noted which could represent atelectasis or less likely developing pneumonia. Soft tissue neck x-ray: Patent airway. No prevertebral soft tissue swelling. A and P 41-year-old male with past medical history significant for esophageal atresia as Trsitan status post colonic pull-through surgery with recurrent pneumonias and aspirations presented to ER for acute worsening of shortness of breath since last 2 days after a choking episode on his food. He has been increased using increased albuterol and prednisone doses at home for self treatment without much relief, woke up in the middle of the night today with severe shortness of breath , choking sensation, noisy breathing so he drove to ER. He has significant leukocytosis, increased oxygen demand, moderate respiratory distress, bilateral crackles in all lung hair with minimal wheezing in anterior chest wall, no evidence of stridor. Appears to be aspiration pneumonia. Patient is in sinus tachycardia in ER which is improving. Given he has infiltrates on his chest x- ray will hold off any further investigations for pulmonary embolism for now + Aspiration pneumonia + Recurrent aspiration secondary to esophageal surgery + History of asthma + Acute hypoxic respiratory failure - Admit to general medicine - Continue O2 by nasal cannula, try to wean off gradually - Albuterol inhalation as needed and scheduled with incentive spirometry - Continue IV Unasyn - Blood cultures sputum culture - Trend lactate - Gentle hydration - Pulmonology consult - Need to obtain records from his wet end tester or surgeon regarding evaluation of swallowing - GI consult - Nothing by mouth with aspiration risk - Consider CT chest without contrast and/or IV steroids if no further clinical improvement - DVT prophylaxis - Adequate pain control
--- NOTE | 2016-09-02 05:41 | NUR ---
MORNING LABS DRAWN AND SENT BY THIS MST. SST,LAV
[2016-09-02 05:54] LABS: ABSOLUTE BASOPHIL COUNT 0 /CUMM (0.0-0.2); ABSOLUTE EOSINOPHIL COUNT 0 /CUMM (0.0-0.7); ABSOLUTE GRANULOCYTE CT 19.7 /CUMM (1.4-6.5); ABSOLUTE LYMPH COUNT 0.4 /CUMM (1.2-3.4); ABSOLUTE MONOCYTE COUNT 0.2 /CUMM (0.10-0.60); BASOPHIL % 0 % (0.0-2.0); EOSINOPHIL % 0 % (0-5); GRANULOCYTE % 96.8 % (42.2-75.2); HEMATOCRIT 38.5 % (42-52); MEAN CORPUSCULAR HGB 29.1 PG (27.0-31.0); MEAN CORPUSCULAR HGB CONC 32.8 G/DL (33.0-37.0); MEAN CORPUSCULAR VOLUME 88.7 FL (80.0-94.0); MEAN PLATELET VOLUME 8.1 FL (7.4-10.4); PLATELET COUNT 298 /CUMM (130-400); RBC DISTRIBUTION WIDTH 14.8 % (11.5-14.5); RED BLOOD CELL CT 4.35 /CUMM (4.70-6.10); WHITE BLOOD CELL COUNT 20.3 /CUMM (4.8-10.8)
--- NOTE | 2016-09-02 06:24 | Admission Certification ---
Admission Certification Certification Statement - As attending physician, I certify that at the time of - admission, based on clinical presentation, severity of - symptoms, need for further diagnostic testing and - therapeutic interventions, and risk of adverse outcomes - without in-hospital treatment, in my clinical assessment, - this patient requires an acute hospital stay for a minimum - of two nights or longer. I have also considered psychsocial - factors such as support system, advanced age, financial - issues, cognitive issues, and failed out-patient treatments, - past re-admission history, safety of patient, and lack of - compliance as applicable. Specific rationale supporting this admission is: Aspiration pneumonia, acute hypoxic respiratory failure
--- NOTE | 2016-09-02 06:26 | NUR ---
NEXT 3G UNASYN DUE AT 5360
--- NOTE | 2016-09-02 07:37 | NUR ---
ASSUMED CARE OF PT. PT AWOKEN FOR MEDICATIONS AND VITAL SIGNS. STATES HE IS FEELING MUCH BETTER THIS AM. PT REAMINS ON 5L OXYGEN VIA NASAL CANNULA, SATS 97%. PT TOOK SMALL SIPS OF WATER WITH MEDICAIONS AND HAD NO DIFFICULTIES SWOLLOWING. AWARE HE IS TO REMIAN NPO AT THIS TIME. OFFERS NO COMPLAINTS, STATES HE SLEPT WELL. CALL CREWS IN REACH. WILL CTM
[2016-09-02 07:43] VITALS: BP 146/76
--- NOTE | 2016-09-02 10:19 | NUR ---
REPORT GIVEN TO FLOOR. PT WILL GO TO ROOM 226
--- NOTE | 2016-09-02 10:47 | Cons- Pulmonary ---
General Information and HPI Consulting Request Date of Consult: 09/02/16 Requested By: Dr. Fowler Reason for Consult: dyspnea Source of Information: patient Exam Limitations: no limitations History of Present Illness: 41M colonic pull through, aspiration hx, reactive airways disease admitted with dyspnea after a choking sensation GI recommends PEG. Seeking second opinion from GI and surgery at [place]. Negative sleep study. Leukocytosis, CXR with likely atelectasis, possible aspiration. O2 up to 5. No n/v/d/c. No sick contacts, no travel hx. No cp. Sensation of choking in throat. Allergies/Medications Allergies: Coded Allergies: No Known Allergies (07/20/16) Home Med List: Albuterol Sulfate (Proair Hfa) 90 MCG HFA.AER.AD 2 PUF INH Q4-6 PRN PRN SHORTNESS OF BREATH (Reported) Albuterol Sulfate 2.5 MG/3 ML (0.083 %) VIAL.NEB 1 Vial INH/RUTHY Q6H PRN RESPIRATORY (Reported) Dexlansoprazole (Dexilant) 60 MG CAP.BP 1 CAP PO DAILY GI (Reported) Escitalopram Oxalate (Lexapro) 10 MG TABLET 1 TAB PO DAILY MENTAL HEALTH ( Reported) Fexofenadine HCl (Michell Allergy) 180 MG TABLET 1 TAB PO DAILY ALLERGIES ( Reported) Fluticasone/Salmeterol (Advair 250-50 Diskus) 250 MCG-50 MCG/DOSE BLST.W.DEV 1 PUF INH BID ASTHMA (Reported) Ipratropium/Albuterol Sulfate (Iprat-Albut 0.5-3(2.5) MG/3 Ml) 0.5 MG-3 MG (2.5 MG BASE)/3 ML AMPUL.NEB 1 VIAL PO 4 TIMES/DAY BREATHING PROBLEMS (Reported) Lorazepam 0.5 MG TABLET 1 TAB PO TID PRN ANXIETY (Reported) Review of Systems Comments 18 pt ros reviewed pertinent positive and negatives in hpi otherwise negative 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 DVT Relation not specified for: *No pertinent family history Psychosocial History Who Do You Live With? partner Services at Home: None Smoking Status: Unknown If Ever Smoked Functional Ability ADLs Independent: dressing, eating, toileting, bathing. Ambulation: independent IADLs Independent: shopping, housework, finances, food prep, telephone, transportation , medication admin. Exam & Diagnostic Data Last 24 Hrs of Vital Signs/I&O Vital Signs Date Time Temp Pulse Resp B/P B/P Pulse O2 O2 Flow FiO2 Mean Ox Delivery Rate 09/02 1014 98.2 103 20 139/79 96 Nasal 5.0L Cannula 09/02 0827 97 Nasal 5.0L Cannula 09/02 0743 98.4 98 18 146/76 97 Nasal 5.0L Cannula 09/02 0739 98.4 98 18 146/76 97 Nasal 5.0L Cannula 09/02 0636 95 Nasal 5.0L Cannula 09/02 0541 98.6 101 21 136/80 96 Nasal 5.0L Cannula 09/02 0348 98.2 114 20 130/81 96 Nasal 5.0L Cannula 09/02 0328 119 96 Nasal 5.0L Cannula 09/02 0241 128 20 95 Nasal 5.0L Cannula 09/02 0204 96 Nasal 5.0L Cannula 09/02 0144 137 09/02 0111 92 Nasal 5.0L Cannula 09/02 0054 98.0 142 20 156/89 93 Nasal 5.0L Cannula Intake & Output 09/02 1600 09/02 0800 09/02 0000 Intake Total 1100 Output Total 275 Balance 825 Intake, IV 1100 Output, Urine 275 Patient 150 lb Weight Weight Reported by Patient Measurement Method Physical Exam Other Physical Findings: gen awake and alert heent ncat cvs s1, s2 lungs rare rhonchi abd soft, bs+ ext without edema Last 48 Hrs of Labs/Irving: Laboratory Tests 09/02/16 0736: Lactic Acid Cancelled 09/02/16 0538: Anion Gap 7, Estimated GFR > 60, BUN/Creatinine Ratio 11.7, CBC w Diff MAN DIFF ORDERED, RBC 4.35 L, MCV 88.7, MCH 29.1, RDW 14.8 H, MPV 8.1, Gran % 96.8 H, Lymphocytes % 2.1 L, Monocytes % 1.1 L, Eosinophils % 0, Basophils % 0 L, Absolute Granulocytes 19.7 H, Absolute Lymphocytes 0.4 L, Absolute Monocytes 0.2, Absolute Eosinophils 0, Absolute Basophils 0, Platelet Estimate ADEQUATE, Polychromasia 1+, Ovalocytes 1+, PUBS MCHC 32.8 L 09/02/16 0436: Lactic Acid Cancelled 09/02/16 0409: Lactic Acid Cancelled 09/02/16 0205: Anion Gap 10, Estimated GFR > 60, BUN/Creatinine Ratio 11.4, Glucose 163 H, Lactic Acid 1.5, Calcium 9.0, Total Bilirubin 0.6, AST 27, ALT 48, Alkaline Phosphatase 59, Total Protein 6.5, Albumin 4.1, Globulin 2.4, Albumin/Globulin Ratio 1.7 09/02/16 0130: CBC w Diff MAN DIFF ORDERED, RBC 4.84, MCV 88.4, MCH 29.3, RDW 14.8 H, MPV 8.9, Gran % 81.6 H, Lymphocytes % 11.6 L, Monocytes % 6.1, Eosinophils % 0.3, Basophils % 0.4, Absolute Granulocytes 14.3 H, Segmented Neutrophils 71, Absolute Lymphocytes 2.0, Lymphocytes 20 L, Monocytes 9, Absolute Monocytes 1.1 H, Absolute Eosinophils 0.1, Absolute Basophils 0.1, Platelet Estimate ADEQUATE , Normocytic RBCs VERIFIED, Normochromic RBCs VERIFIED, PUBS MCHC 33.2 Assessment/Plan Impression/Plan: Impression 41 M * chronic aspiration, hx of colonic pull through * reactie airways disease Plan -prednisone 60x3, 50x3, 40x3, 30x3, 20x3, 10x3 then stop -trc -can use unasyn and give course of augmentin upon dc -nutrition and speech evaluation -reduce o2 to goal >92% -gi/surgery second opinion as outpatient DVT prophylaxis at all times Consult Acknowledgment - Thank you for your consult request.
[2016-09-02 11:02] VITALS: BP 140/80
--- NOTE | 2016-09-02 11:34 | PN- Att Addend ---
Attending Addendum Attending Brief Note Patient seen and examined. Resting comfortably and not in any respiratory distress. Since admission he has remained afebrile and hemodynamically stable. He however continues require oxygen saturation and is currently on 5 L of oxygen saturating 96% Reports a chronic history of aspiration with or without meals due to his underlying esophageal disease and surgery. He denies being placed on a modified diet by any of his care providers He currently denies any chest pain or shortness of breath at rest. Denies any palpitations. He denies any cough at present. Vital Signs Date Time Temp Pulse Resp B/P B/P Pulse O2 O2 Flow FiO2 Mean Ox Delivery Rate 09/02 1102 98.6 95 20 140/80 96 Nasal 5.0L Cannula 09/02 1014 98.2 103 20 139/79 96 Nasal 5.0L Cannula 09/02 0827 97 Nasal 5.0L Cannula 09/02 0743 98.4 98 18 146/76 97 Nasal 5.0L Cannula 09/02 0739 98.4 98 18 146/76 97 Nasal 5.0L Cannula 09/02 0636 95 Nasal 5.0L Cannula 09/02 0541 98.6 101 21 136/80 96 Nasal 5.0L Cannula 09/02 0348 98.2 114 20 130/81 96 Nasal 5.0L Cannula 09/02 0328 119 96 Nasal 5.0L Cannula 09/02 0241 128 20 95 Nasal 5.0L Cannula 09/02 0204 96 Nasal 5.0L Cannula 09/02 0144 137 09/02 0111 92 Nasal 5.0L Cannula 09/02 0054 98.0 142 20 156/89 93 Nasal 5.0L Cannula Gen. appearance: Well-developed, not in acute distress Heart: S1-S2 regular Lungs: Mild Diffuse rhonchi bilaterally Abdomen: Soft, nontender with normal bowel sounds Limbs: No pedal edema Skin: Intact with no rash Laboratory Tests 09/02/16 0736: Lactic Acid Cancelled 09/02/16 0538: Anion Gap 7, Estimated GFR > 60, BUN/Creatinine Ratio 11.7, CBC w Diff MAN DIFF ORDERED, RBC 4.35 L, MCV 88.7, MCH 29.1, RDW 14.8 H, MPV 8.1, Gran % 96.8 H, Lymphocytes % 2.1 L, Monocytes % 1.1 L, Eosinophils % 0, Basophils % 0 L, Absolute Granulocytes 19.7 H, Absolute Lymphocytes 0.4 L, Absolute Monocytes 0.2, Absolute Eosinophils 0, Absolute Basophils 0, Platelet Estimate ADEQUATE, Polychromasia 1+, Ovalocytes 1+, PUBS MCHC 32.8 L 09/02/16 0436: Lactic Acid Cancelled 09/02/16 0409: Lactic Acid Cancelled 09/02/16 0205: Anion Gap 10, Estimated GFR > 60, BUN/Creatinine Ratio 11.4, Glucose 163 H, Lactic Acid 1.5, Calcium 9.0, Total Bilirubin 0.6, AST 27, ALT 48, Alkaline Phosphatase 59, Total Protein 6.5, Albumin 4.1, Globulin 2.4, Albumin/Globulin Ratio 1.7 09/02/16 013: CBC w Diff MAN DIFF ORDERED, RBC 4.84, MCV 88.4, MCH 29.3, RDW 14.8 H, MPV 8.9, Gran % 81.6 H, Lymphocytes % 11.6 L, Monocytes % 6.1, Eosinophils % 0.3, Basophils % 0.4, Absolute Granulocytes 14.3 H, Segmented Neutrophils 71, Absolute Lymphocytes 2.0, Lymphocytes 20 L, Monocytes 9, Absolute Monocytes 1.1 H, Absolute Eosinophils 0.1, Absolute Basophils 0.1, Platelet Estimate ADEQUATE , Normocytic RBCs VERIFIED, Normochromic RBCs VERIFIED, PUBS MCHC 33.2 Microbiology 09/03 511 LOWER RESP: Respiratory Culture - COLB 09/03 511 LOWER RESP: Gram Stain - COLB 09/02 141 BLOOD: Blood Culture - RECD 09/02 129 BLOOD: Blood Culture - RECD Problems: 1. Acute hypoxic respiratory failure 2. Aspiration pneumonia 3. Chronic aspiration 4. Reactive airway disease secondary to above Plan: -Continue empiric antibiotic therapy with IV Unasyn -Steroid therapy per the pulmonology service for management of his reactive airway disease -Continue his home bronchodilator and inhaled steroid regimen. -Swallow evaluation for diet recommendations. -patient to follow-up with his surgery and gastroenterology service at [facility] upon discharge
[2016-09-02 14:27] VITALS: BP 122/80
[2016-09-02 21:00] VITALS: BP 118/70
[2016-09-02 21:49] VITALS: BP 140/80
[2016-09-03 06:35] VITALS: BP 138/70
--- NOTE | 2016-09-03 07:27 | PN- Housestaff ---
THAO MORAN 09/03/16 0727: Subjective Follow-up For: - Acute hypoxic respiratory failur 2/2 aspiration pnemonia - Reactive airway disease 2/2 chronic aspirationn given hx of reconstruction surgery for esophageal atresia. Complaints: no complaints Subjective: Patient seen and examined at bedside. He is off oxygen and denies any chest discomfort, shortness of breath, orthopnea, PND. Was evaluated by speech and started on modifed diet with puree and thins. Review of Systems Constitutional: Denies: chills, fever, malaise. EENTM: Denies: visual changes. Cardiovascular: Denies: chest pain, orthopena, palpitations, peripheral edema. Respiratory: Denies: cough, orthopnea, short of breath, sputum production, wheezing. Gastrointestinal: Denies: abdominal pain, constipation, diarrhea, nausea, vomiting. Genitourinary: Denies: discharge, frequency, hematuria. Musculoskeletal: Reports: no symptoms. Neurological/Psychological: Denies: headache, numbness, tingling, tremors. Objective Last 24 Hrs of Vital Signs/I&O Vital Signs Date Time Temp Pulse Resp B/P B/P Pulse O2 O2 Flow FiO2 Mean Ox Delivery Rate 09/03 0635 98.3 100 21 138/70 98 Nasal Cannula 09/03 0000 98 Nasal 4.0L Cannula 09/02 2149 98.0 87 20 140/80 98 Room Air 09/02 2100 98.7 60 20 118/70 94 Room Air 09/02 2001 96 Nasal 4.0L Cannula 09/02 1600 Nasal 4.0L Cannula 09/02 1427 97.9 93 18 122/80 99 Nasal 4.0L Cannula 09/02 1415 Nasal 5.0L Cannula 09/02 1415 98 Nasal 4.0L Cannula 09/02 1102 98.6 95 20 140/80 96 Nasal 5.0L Cannula 09/02 1014 98.2 103 20 139/79 96 Nasal 5.0L Cannula 09/02 0827 97 Nasal 5.0L Cannula 09/02 0743 98.4 98 18 146/76 97 Nasal 5.0L Cannula 09/02 0739 98.4 98 18 146/76 97 Nasal 5.0L Cannula Intake & Output 09/03 0800 07 0000 09/02 1600 Intake Total 240 600 100 Output Total Balance 240 600 100 Intake, IV 100 Intake, Oral 240 600 Patient 150 lb Weight Physical Exam General Appearance: Alert, Oriented X3, Cooperative, No Acute Distress HEENT: Atraumatic, PERRLA, EOMI, Mucous Membr. moist/pink Neck: Supple, No JVD Cardiovascular: Normal S1, Normal S2, No Murmurs Lungs: Clear to Auscultation, Normal Air Movement Abdomen: Normal Bowel Sounds, Soft, No Tenderness Neurological: Normal Gait, Normal Speech, Strength at 5/5 X4 Ext, Normal Tone, Sensation Intact, Cranial Nerves 3-12 NL, Reflexes 2+ Extremities: No Edema, Normal Pulses, No Tenderness/Swelling Vascular: Normal Pulses, Pulses Symmetrical Current Medications: Current Medications Sig/Maxim Start time Last Medication Dose Route Stop Time Status Admin Acetaminophen 650 MG Q6P PRN 09/02 0500 AC 09/02 PO 1546 Acetaminophen/ 1 TAB Q6P PRN 09/02 0500 AC Hydrocodone Bitart PO Albuterol Sulfate 3 ML BID 09/02 1410 AC 09/03 INH 0944 Albuterol Sulfate 3 ML Q6P PRN 09/02 0500 AC INH Albuterol Sulfate 2 PUF Q4-6 PRN PRN 09/02 0500 AC INH Ampicillin Sodium/ 3,000 MG Q6H 09/02 0745 AC 09/03 Sulbactam Sodium IV 2001 Sodium Chloride 100 ML Budesonide/ 2 PUF BID 09/02 1000 AC 09/03 Formoterol Fumarate INH 2121 Enoxaparin Sodium 40 MG DAILY 09/02 1000 AC 09/03 SC 0846 Escitalopram Oxalate 10 MG DAILY 09/02 1000 AC 09/03 PO 0843 Ipratropium [place] 2.5 ML BID 09/02 1410 AC 09/03 INH 0944 Ipratropium [place] 2.5 ML Q6P PRN 09/02 0500 AC INH Lorazepam 0.5 MG TID PRN 09/02 0500 AC 09/03 PO 09/09 0459 0947 Omeprazole 40 MG DAILY AC 09/02 0700 AC 09/02 PO 0736 Patient Medication 1 ED .STK-MED ONE 09/03 1426 [place] Teaching ED 09/03 1427 Prednisone 10 MG DAILY 09/18 1000 AC PO 09/20 1001 Prednisone 20 MG DAILY 09/15 1000 AC PO 09/17 1001 Prednisone 30 MG DAILY 09/12 1000 AC PO 09/14 1001 Prednisone 40 MG DAILY 09/09 1000 AC PO 09/11 1001 Prednisone 50 MG DAILY 09/06 1000 AC PO 09/08 1001 Prednisone 60 MG DAILY 09/03 1000 AC 09/03 PO 09/05 1001 0843 Last 24 Hrs of Lab/Irving Results Last 24 Hrs of Labs/Mics: Laboratory Tests 09/03/16 0700: CBC w Diff MAN DIFF ORDERED, RBC 4.32 L, MCV 89.5, MCH 29.2, RDW 14.9 H, MPV 9.1, Gran % 90.1 H, Lymphocytes % 6.4 L, Monocytes % 3.5, Eosinophils % 0, Basophils % 0 L, Absolute Granulocytes 14.5 H, Segmented Neutrophils 81 H, Absolute Lymphocytes 1.0 L, Lymphocytes 7 L, Monocytes 12 H, Absolute Monocytes 0.6, Absolute Eosinophils 0, Absolute Basophils 0, Platelet Estimate ADEQUATE, Normocytic RBCs VERIFIED, Normochromic RBCs VERIFIED, PUBS MCHC 32.6 L Assessment/Plan Assessment: 41-year-old man with a PMH of esophageal atresia S/P reconstructive surgery, asthma, recurrent aspiration, severe GERD presented with complaints of worsening shortness of breath that woke him from sleep. VS on admission: BP 156/89, HR 142, RR 20, SPO2 93% on 5L NC, T 98.0 Pertinent physical findings on admission: Alert and in no acute distress, normal S1/S2 with tachycardia. Lungs: Diffuse wheezing throughout the lung hair with bilateral basal crackles. Normal bowel sounds. Pertinent labs on admission: WBC 17.5, H&H 14.2/42.8, platelets 400K, sodium 141 , potassium 3.8, chloride 102, bicarbonate 29 BUN/CR 09/29 CXR: Hazy basilar opacities noted which could represent atelectasis or less likely developing pneumonia and no prevertebral soft tissue swelling The patient was admitted to the general medicine floor. Assessment and Plan: #Acute hypoxic respiratory failure 2/2 aspiration pneumonia - Continue on Unasyn 3000mg IV Q6 for now. - Check ambuatory pulse ox. - Will transition to PO Augmentin 875mg BID PO tmrw for a total of 10 days. 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 - Started on modified diet yesterday after obtaining swallow eval. - Nutrition consult placed. F/U recs. # Reactive airway disease Continue TRC/ Nebs sand start on Prednisone taper. # Depression - Continue Lexapro 10mg daily - DVT Prophylaxis - Lovenox 40mg SC - Diet - Regular (thins and puree) - Code Status - Full Code Problem List: 1. Aspiration pneumonia 2. Asthma Pain Ratin Pain Location: N/A Pain Goal: Remain pain free Pain Plan: Tyelnol Tomorrow's Labs & Rationales: CBC - WBC count JENNY HAILE,LUZ ELENAMORENITAHarshal 09/03/16 1214: Attending MD Review Statement Attending Statement Attending MD Statement: examined this patient, discuss w/resident/PA/AMMONIA SOLUTION PREPARER, agreed w/resident/PA/AMMONIA SOLUTION PREPARER, reviewed EMR data (avail), discussed with nursing, discussed with case mgmt, amended to note Attending Assessment/Plan: Patient seen and examined. Resting comfortably in no acute distress. No issues overnight. He is currently saturating 94% on room air. On auscultation however he does have mild bilateral wheezing. He was receiving nebulizer therapy at the time. No further new complaints and appears eager to go. Laboratory data show improvement of his white cell, today. Recommendations: -Continue to monitor patient off oxygen. Ambulate patient anticoagulation pulse ox. -Continue prednisone taper as recommended by the pulmonology service. -Continue IV Unasyn. He remains afebrile he may be transferred to [facility] tomorrow and discharge to complete 10 days of therapy. -He has been seen by the speech therapist and recommendations made for a pureed diet with thin liquids. Patient accepts the need to be maintained on this diet. -Please obtain nutrition consult to provide patient with options for pureed Diet.
[2016-09-03 10:36] LABS: ABSOLUTE BASOPHIL COUNT 0 /CUMM (0.0-0.2); ABSOLUTE EOSINOPHIL COUNT 0 /CUMM (0.0-0.7); ABSOLUTE GRANULOCYTE CT 14.5 /CUMM (1.4-6.5); ABSOLUTE MONOCYTE COUNT 0.6 /CUMM (0.10-0.60); BASOPHIL % 0 % (0.0-2.0); EOSINOPHIL % 0 % (0-5); GRANULOCYTE % 90.1 % (42.2-75.2); HEMATOCRIT 38.7 % (42-52); MEAN CORPUSCULAR HGB 29.2 PG (27.0-31.0); MEAN CORPUSCULAR HGB CONC 32.6 G/DL (33.0-37.0); MEAN CORPUSCULAR VOLUME 89.5 FL (80.0-94.0); MEAN PLATELET VOLUME 9.1 FL (7.4-10.4); PLATELET COUNT 300 /CUMM (130-400); RBC DISTRIBUTION WIDTH 14.9 % (11.5-14.5); RED BLOOD CELL CT 4.32 /CUMM (4.70-6.10); WHITE BLOOD CELL COUNT 16.1 /CUMM (4.8-10.8)
--- NOTE | 2016-09-03 12:08 | PN- Pulmonary ---
Subjective HPI/Critical Care Issues: pt seen and examined afebrile 95% on ra Objective Current Medications: Current Medications Sig/Maxim Start time Last Medication Dose Route Stop Time Status Admin Acetaminophen 650 MG Q6P PRN 09/02 0500 AC 09/02 PO 1546 Acetaminophen/ 1 TAB Q6P PRN 09/02 0500 AC Hydrocodone Bitart PO Albuterol Sulfate 3 ML BID 09/02 1410 AC 09/03 INH 0944 Albuterol Sulfate 3 ML Q6P PRN 09/02 0500 AC INH Albuterol Sulfate 2 PUF Q4-6 PRN PRN 09/02 0500 AC INH Ampicillin Sodium/ 3,000 MG Q6H 09/02 0745 AC 09/03 Sulbactam Sodium IV 0846 Sodium Chloride 100 ML Budesonide/ 2 PUF BID 09/02 1000 AC 09/03 Formoterol Fumarate INH 0842 Enoxaparin Sodium 40 MG DAILY 09/02 1000 AC 09/03 SC 0846 Escitalopram Oxalate 10 MG DAILY 09/02 1000 AC 09/03 PO 0843 Ipratropium [place] 2.5 ML BID 09/02 1410 AC 09/03 INH 0944 Ipratropium [place] 2.5 ML Q6P PRN 09/02 0500 AC INH Lorazepam 0.5 MG TID PRN 09/02 0500 AC 09/03 PO 09/09 0459 0947 Omeprazole 40 MG DAILY AC 09/02 0700 AC 09/02 PO 0736 Prednisone 10 MG DAILY 09/18 1000 AC PO 09/20 1001 Prednisone 20 MG DAILY 09/15 1000 AC PO 09/17 1001 Prednisone 30 MG DAILY 09/12 1000 AC PO 09/14 1001 Prednisone 40 MG DAILY 09/09 1000 AC PO 09/11 1001 Prednisone 50 MG DAILY 09/06 1000 AC PO 09/08 1001 Prednisone 60 MG DAILY 09/03 1000 AC 09/03 PO 09/05 1001 0843 Vital Signs & I&O Last 24 Hrs of Vitals and I&O: Vital Signs Date Time Temp Pulse Resp B/P B/P Pulse O2 O2 Flow FiO2 Mean Ox Delivery Rate 09/03 1016 94 Room Air 09/03 0635 98.3 100 21 138/70 98 Nasal Cannula 09/03 0000 98 Nasal 4.0L Cannula 09/02 2149 98.0 87 20 140/80 98 Room Air 09/02 2100 98.7 60 20 118/70 94 Room Air 09/02 2001 96 Nasal 4.0L Cannula 09/02 1600 Nasal 4.0L Cannula 09/02 1427 97.9 93 18 122/80 99 Nasal 4.0L Cannula 09/02 1415 Nasal 5.0L Cannula 09/02 1415 98 Nasal 4.0L Cannula Intake & Output 09/03 1600 09/03 0800 07 0000 Intake Total 240 600 Output Total Balance 240 600 Intake, Oral 240 600 Exam Other Physical Findings: gen awake and alert heent ncat cvs s1, s2 lungs rare rhonchi abd soft, bs+ ext without edema Results Last 24 Hrs of Lab Results: Laboratory Tests 09/03/16 0700: CBC w Diff MAN DIFF ORDERED, RBC 4.32 L, MCV 89.5, MCH 29.2, RDW 14.9 H, MPV 9.1, Gran % 90.1 H, Lymphocytes % 6.4 L, Monocytes % 3.5, Eosinophils % 0, Basophils % 0 L, Absolute Granulocytes 14.5 H, Segmented Neutrophils 81 H, Absolute Lymphocytes 1.0 L, Lymphocytes 7 L, Monocytes 12 H, Absolute Monocytes 0.6, Absolute Eosinophils 0, Absolute Basophils 0, Platelet Estimate ADEQUATE, Normocytic RBCs VERIFIED, Normochromic RBCs VERIFIED, PUBS MCHC 32.6 L Impression/Plan Impression/Plan Impression/Plan: Impression 41 M * chronic aspiration, hx of colonic pull through * reactie airways disease Plan -prednisone taper as ordered 60x3, 50x3, 40x3, 30x3, 20x3, 10x3 then stop -trc -can use unasyn and give course of augmentin upon dc -nutrition and speech evaluation -reduce o2 to goal >92% -gi/surgery second opinion as outpatient DVT prophylaxis at all times DC planning
[2016-09-03] MEDS ORDERED: PREDNISONE10 M2 PO (12:20)
[2016-09-03] MEDS ORDERED: AUGMENTIN 875-1 EACH PO ×2 (12:20→12:30)
--- NOTE | 2016-09-03 12:28 | Patient Discharge Instructions ---
Discharge Instructions General Discharge Information You were seen/treated for: - Acute hypoxic respiratory failure secondary to aspiration pneumonia Special Instructions: Please follow up with your primary care physician in one week. Please follow up with your physicians at [facility]. Diet Recommended Diet: Regular (puree and regular thins) Activity Activity Self Limited: Yes Acute Coronary Syndrome Inclusion Criteria At DC or during hospital stay patient has or had the following: ACS DIAGNOSIS No Discharge Core Measures Meds if any: Prescribed or Continued at Discharge Meds if any: NOT Prescribed or Continued at Discharge Congestive Heart Failure Inclusion Criteria At DC or during hospital stay patient has or had the following: CHF DIAGNOSIS No Discharge Core Measures Meds if any: Prescribed or Continued at Discharge Meds if any: NOT Prescribed or Continued at Discharge Cerebrovascular accident Inclusion Criteria At DC or during hospital stay patient has or had the following: CVA/TIA Diagnosis No Discharge Core Measures Meds if any: Prescribed or Continued at Discharge Meds if any: NOT Prescribed or Continued at Discharge Venous thromboembolism Inclusion Criteria VTE Diagnosis No VTE Type NONE VTE Confirmed by (Test) NONE Discharge Core Measures - Per Current guidelines, there needs to be overlap - treatment for the first 5 days of Warfarin therapy. - If discharged on Warfarin prior to 5 days of - overlap therapy, the patient will need to be - assessed for post discharge needs including - *Post discharge parental anticoagulation - *Warfarin and/or parental anticoagulation education - *Follow up date to check INR post discharge At least 5 days overlap therapy as Inpatient No Meds if any: Prescribed or Continued at Discharge Note: Overlap Therapy is Warfarin and Anticoagulant Meds if any: NOT Prescribed or Continued at Discharge
--- NOTE | 2016-09-03 12:33 | Discharge Summary ---
Visit Information Visit Dates Admission Date: 09/02/16 Discharge Date: 09/04/16 Hospital Course Course Attending Physician: JOSIE ALVARADO M.D Primary Care Physician: TYLER WRAY MD Consulting Request: Consulting Specialty: Pulmonary Disease Hospital Course: Mr. Tony Toledo is a 41-year-old gentleman with a PMH of esophageal atresia S/P reconstructive surgery, asthma, recurrent aspiration, severe GERD presented with complaints of worsening shortness of breath that woke him from sleep. Patient endorsed frequent episodes of choking on food for which he has followed up with his lead database administrator and current discussion for reconstructive surgery ongoing. In line with this, there has also been a discussion on placement of feeding tube. Unfortunately, in the context of his recurrent medical history he has suffered from episodes of aspiration most recently 2 days prior to this admission with associated fevers. VS on admission: BP 156/89, HR 142, RR 20, SPO2 93% on 5L NC, T 98.0 Pertinent physical findings on admission: Alert and in no acute distress, normal S1/S2 with tachycardia. Lungs: Diffuse wheezing throughout the lung hair with bilateral basal crackles. Normal bowel sounds. Pertinent labs on admission: WBC 17.5, H&H 14.2/42.8, platelets 400K, sodium 141 , potassium 3.8, chloride 102, bicarbonate 29 BUN/CR 8/ CXR: Hazy basilar opacities noted which could represent atelectasis or less likely developing pneumonia and no prevertebral soft tissue swelling The patient was admitted to the general medicine floor and managed for the following problems: 1. Aspiration pneumonia 2. SIRS criteria: WBC 17.5, HR 142 3. Recurrent aspirations with history of colonic pull-through 4. Acute hypoxic respiratory failure Hospital course: 1. Aspiration pneumonia * In the setting of his aspiration, we started the patient on Unasyn 3 g IV every 6 and transition the patient to Augmentin to complete a total of 10 days 2. SIRS criteria: WBC 17.5, HR 142 * Leukocytosis of 20.3 trended down throughout the hospital course * Blood cultures remained negative 3. Recurrent aspirations with history of colonic pull-through * Continue with GI prophylaxis omeprazole 40 mg daily and dexilant 6 mg 4. Acute hypoxic respiratory failure * This was attributable to the acute aspiration and reactive airway disease. We were successfully able to titrate him off supplemental oxygen with illness of albuterol and additional nebulizer * He did receive 1 dose of IV Solu-Medrol and will be discharged on a short course of prednisone taper. He was evaluated by speech therapist who recommended puree and thins. He would also benefot form being on Ensure. Per request of the patient and his family, he will be discharged with plans to obtain second opinion from both gastroenterology and surgery. Complications: None Allergies: Coded Allergies: No Known Allergies (07/20/16) Significant Procedures: SERVICE DATE: 09/02/16 EXAM TYPE: RAD - XRY-PORTABLE CHEST XRAY FINDINGS: The lungs are well expanded. Hazy basilar opacities. No pleural effusion or pneumothorax. The cardiomediastinal silhouette is unchanged. IMPRESSION: Hazy basilar opacities noted which could represent atelectasis or less likely developing pneumonia. SERVICE DATE: 09/02/16 EXAM TYPE: RAD - XRY-SOFT TISSUE NECK FINDINGS: Soft tissue films of the neck demonstrate a normal larynx, pharynx and upper trachea. No soft tissue swelling or opaque foreign body is demonstrated. The epiglottis is unremarkable. The cervical spine is not well evaluated. IMPRESSION: Patent airway. No prevertebral soft tissue swelling. Disposition Summary Disposition Principal Diagnosis: Aspiration pneumonia Additional Diagnosis: Gastroesophageal reflux disease Esophageal dysfunction with history of colonic pull-through Reactive airway disease 2/2 chronic aspiration Discharge Disposition: home or self care Discharge Instructions General Discharge Information Code Status: Full Code Patient's Diet: Regular (Puree and thins) Patient's Activity: As tolerated Follow-Up Instructions/Appts: Please take medications as directed. Please follow-up with your PCP at the next scheduled appointment. Medications at Discharge Discharge Medications: Continue taking these medications: Fluticasone/Salmeterol (Advair 250-50 Diskus) 250 MCG-50 MCG/DOSE BLST.W.DEV 1 Puff Inhale through mouth TWICE DAILY Escitalopram Oxalate (Lexapro) 10 MG TABLET 1 Tablet ORAL DAILY Dexlansoprazole (Dexilant) 60 MG CAP.DR.BP 1 Capsule ORAL TWICE DAILY Qty = 180 Comments: PER PT TAKES 1 CAP DAILY Lorazepam (Lorazepam) 0.5 MG TABLET 1 Tablet ORAL THREE TIMES DAILY as needed for ANXIETY Qty = 30 Comments: PER PT Albuterol Sulfate (Proair Hfa) 90 MCG HFA.AER.AD 2 Puff Inhale through mouth EVERY 4-6 HOURS NEEDED as needed for SHORTNESS OF BREATH Ipratropium/Albuterol Sulfate (Iprat-Albut 0.5-3(2.5) MG/3 Ml) 0.5 MG-3 MG (2.5 MG BASE)/3 ML AMPUL.NEB 1 VIAL ORAL 4 TIMES A DAY Qty = 180 Fexofenadine HCl (Michell Allergy) 180 MG TABLET 1 Tablet ORAL DAILY Albuterol Sulfate (Albuterol Sulfate) 2.5 MG/3 ML (0.083 %) VIAL.NEB 1 Vial Inhale Solution Q6H as needed for RESPIRATORY Qty = 75 Start taking the following new medications: Amoxicillin/Potassium Clav (Augmentin 875-125 Tablet) 875 MG-125 MG TABLET 1 Tablet ORAL TWICE DAILY Qty = 9 No Refills Instructions: . Prednisone (Prednisone) 10 MG TABLET 0 ORAL As Directed Qty = 51 No Refills Instructions: See Gagan CARABALLO. Comments: 6 tabs for 1 day 5 tabs for 3 days 4 tabs for 2 days 3 tabs for 3 days 2 tabs for 3 days 1 tab for 3 days Copies To: NILS HAILE,TYLER; ERNST HAILE,VAIBHAV Attending Review Statement Documenting Attending: JOSIE ALVARADO M.D Other Findings: Patient was discharged in stable condition.
[2016-09-03 15:02] VITALS: BP 126/50
[2016-09-03 22:54] VITALS: BP 134/70
[2016-09-04 06:00] VITALS: BP 134/70
--- NOTE | 2016-09-04 07:21 | PN- Housestaff ---
See Addendum Subjective Follow-up For: - Acute hypoxic respiratory failur 2/2 aspiration pnemonia - Reactive airway disease 2/2 chronic aspirationn given hx of reconstruction surgery for esophageal atresia. Complaints: no complaints Subjective: Patient seen and examined at the bedside. He states his shortness of breath is much better and denies chest discomfort, palpitations, abdominal pain, nasuiea, vomiting. Review of Systems Constitutional: Denies: chills, fever, weakness. EENTM: Denies: visual changes. Cardiovascular: Denies: chest pain, palpitations, peripheral edema, syncope. Respiratory: Reports: sputum production. Denies: cough, orthopnea, short of breath, wheezing. Gastrointestinal: Denies: abdominal pain, constipation, diarrhea, nausea, vomiting. Genitourinary: Denies: frequency, hematuria, pain. Musculoskeletal: Denies: back pain, joint swelling. Neurological/Psychological: Denies: headache, numbness, tingling, tremors. Objective Last 24 Hrs of Vital Signs/I&O Vital Signs Date Time Temp Pulse Resp B/P B/P Pulse O2 O2 Flow FiO2 Mean Ox Delivery Rate 09/04 0600 98.2 88 18 134/70 94 Room Air 09/04 0000 93 Room Air 09/03 2254 98.4 81 20 134/70 93 Room Air 09/03 2134 96 Room Air 09/03 1502 98.1 103 20 126/50 93 Room Air 09/03 1016 94 Room Air 09/03 0800 98 Nasal 4.0L Cannula Intake & Output 09/04 0800 09/04 0000 09/03 1600 Intake Total 500 800 Output Total Balance 500 800 Intake, IV 150 150 Intake, Oral 350 650 Physical Exam General Appearance: Alert, Oriented X3, Cooperative, No Acute Distress HEENT: Atraumatic, PERRLA, EOMI, Mucous Membr. moist/pink Neck: Supple, No JVD, +2 Carotid Pulse wo Bruit Cardiovascular: Regular Rate, Normal S1, Normal S2, No Murmurs Lungs: bilateral ronchi R>L Abdomen: Normal Bowel Sounds, Soft, No Tenderness Neurological: Normal Gait, Normal Speech, Strength at 5/5 X4 Ext, Normal Tone, Sensation Intact, Cranial Nerves 3-12 NL, Reflexes 2+ Extremities: No Clubbing, No Edema Vascular: Normal Pulses, Pulses Symmetrical Current Medications: Current Medications Sig/Maxim Start time Last Medication Dose Route Stop Time Status Admin Acetaminophen 650 MG Q6P PRN 09/02 0500 AC 09/02 PO 1546 Acetaminophen/ 1 TAB Q6P PRN 09/02 0500 AC Hydrocodone Bitart PO Albuterol Sulfate 3 ML BID 09/02 1410 AC 09/03 INH 2134 Albuterol Sulfate 3 ML Q6P PRN 09/02 0500 AC INH Albuterol Sulfate 2 PUF Q4-6 PRN PRN 09/02 0500 AC INH Ampicillin Sodium/ 3,000 MG Q6H 09/02 0745 AC 09/04 Sulbactam Sodium IV 0153 Sodium Chloride 100 ML Budesonide/ 2 PUF BID 09/02 1000 AC 09/03 Formoterol Fumarate INH 2121 Enoxaparin Sodium 40 MG DAILY 09/02 1000 AC 09/03 SC 0846 Escitalopram Oxalate 10 MG DAILY 09/02 1000 AC 09/03 PO 0843 Ipratropium [place] 2.5 ML BID 09/02 1410 AC 09/03 INH 2134 Ipratropium [place] 2.5 ML Q6P PRN 09/02 0500 AC INH Lorazepam 0.5 MG TID PRN 09/02 0500 AC 09/03 PO 09/09 0459 2137 Omeprazole 40 MG DAILY AC 09/02 0700 AC 09/02 PO 0736 Patient Medication 1 ED .[facility] 09/03 1426 [place] Teaching ED 09/03 1427 Prednisone 10 MG DAILY 09/18 1000 AC PO 09/20 1001 Prednisone 20 MG DAILY 09/15 1000 AC PO 09/17 1001 Prednisone 30 MG DAILY 09/12 1000 AC PO 09/14 1001 Prednisone 40 MG DAILY 09/09 1000 AC PO 09/11 1001 Prednisone 50 MG DAILY 09/06 1000 AC PO 09/08 1001 Prednisone 60 MG DAILY 09/03 1000 AC 09/03 PO 09/05 1001 0843 Last 24 Hrs of Lab/Irving Results Last 24 Hrs of Labs/Mics: Laboratory Tests 09/04/16 0710: CBC w Diff Pending, WBC Pending, RBC Pending, Hgb Pending, Hct Pending, MCV Pending, MCH Pending, RDW Pending, Plt Count Pending, MPV Pending, PUBS MCHC Pending Assessment/Plan Assessment: 41-year-old man with a PMH of esophageal atresia S/P reconstructive surgery, asthma, recurrent aspiration, severe GERD presented with complaints of worsening shortness of breath that woke him from sleep. VS on admission: BP 156/89, HR 142, RR 20, SPO2 93% on 5L NC, T 98.0 Pertinent physical findings on admission: Alert and in no acute distress, normal S1/S2 with tachycardia. Lungs: Diffuse wheezing throughout the lung hair with bilateral basal crackles. Normal bowel sounds. Pertinent labs on admission: WBC 17.5, H&H 14.2/42.8, platelets 400K, sodium 141 , potassium 3.8, chloride 102, bicarbonate 29 BUN/CR 09/29 CXR: Hazy basilar opacities noted which could represent atelectasis or less likely developing pneumonia and no prevertebral soft tissue swelling The patient was admitted to the general medicine floor. Assessment and Plan: #Acute hypoxic respiratory failure 2/2 aspiration pneumonia - DC Unasyn,a nd trat on Augmentin 875mg BID PO. - Check ambuatory pulse ox. - If saturatiosn do not drop, will discharge today - Blood cultures remained negative # Recurrent aspirations with history of colonic pull-through - Continue with GI prophylaxis omeprazole 40 mg daily - Patient to follow with GI at [place] for second opinion. - Started on modified diet after obtaining swallow eval. - Nutrition consult placed. F/U recs. # Reactive airway disease Continue TRC/ Nebs sand start on Prednisone taper. # Depression - Continue Lexapro 10mg daily - DVT Prophylaxis - Lovenox 40mg SC - Diet - Regular (thins and puree) - Code Status - Full Code Problem List: 1. Aspiration pneumonia Pain Ratin Pain Location: n/a Pain Goal: Remain pain free Pain Plan: tyelnol Tomorrow's Labs & Rationales: - N/A
--- NOTE | 2016-09-04 08:44 | NUR ---
AMBULATORY SATS 98% ON ROOM AIR AT REST. PT DESAT TO 91-91% ON ROOM AIR WHILE AMBULATING.
[2016-09-04] MEDS ORDERED: AUGMENTIN 875-1 EACH PO ×2 (08:57→10:11)
[2016-09-04] MEDS ORDERED: PREDNISONE10 M2 PO ×2 (08:59→10:11)
[2016-09-04 09:06] LABS: ABSOLUTE BASOPHIL COUNT 0 /CUMM (0.0-0.2); ABSOLUTE EOSINOPHIL COUNT 0 /CUMM (0.0-0.7); ABSOLUTE GRANULOCYTE CT 9.3 /CUMM (1.4-6.5); ABSOLUTE LYMPH COUNT 1.8 /CUMM (1.2-3.4); ABSOLUTE MONOCYTE COUNT 1.1 /CUMM (0.10-0.60); BASOPHIL % 0.2 % (0.0-2.0); EOSINOPHIL % 0.2 % (0-5); HEMATOCRIT 36.5 % (42-52); MEAN CORPUSCULAR HGB 29.5 PG (27.0-31.0); MEAN CORPUSCULAR VOLUME 89.6 FL (80.0-94.0); MEAN PLATELET VOLUME 8.4 FL (7.4-10.4); PLATELET COUNT 273 /CUMM (130-400); RBC DISTRIBUTION WIDTH 14.9 % (11.5-14.5); RED BLOOD CELL CT 4.07 /CUMM (4.70-6.10); WHITE BLOOD CELL COUNT 12.3 /CUMM (4.8-10.8)
--- NOTE | 2016-09-04 11:37 | PN- Pulmonary ---
Subjective HPI/Critical Care Issues: pt seen and examined ready for dc feeling better wbc 12 Objective Current Medications: Current Medications Sig/Maxim Start time Last Medication Dose Route Stop Time Status Admin Acetaminophen 650 MG Q6P PRN 09/02 0500 DCD 09/02 PO 1546 Acetaminophen/ 1 TAB Q6P PRN 09/02 0500 DCD Hydrocodone Bitart PO Albuterol Sulfate 3 ML BID 09/02 1410 DCD 09/04 INH 1012 Albuterol Sulfate 3 ML Q6P PRN 09/02 0500 DCD INH Albuterol Sulfate 2 PUF Q4-6 PRN PRN 09/02 0500 DCD INH Amoxicillin/ 875 MG Q12 09/04 1000 DCD Clavulanate Potassium PO Ampicillin Sodium/ 3,000 MG Q6H 09/02 0745 DC 09/04 Sulbactam Sodium IV 0735 Sodium Chloride 100 ML Budesonide/ 2 PUF BID 09/02 1000 DCD 09/04 Formoterol Fumarate INH 0824 Enoxaparin Sodium 40 MG DAILY 09/02 1000 DCD 09/04 SC 0824 Escitalopram Oxalate 10 MG DAILY 09/02 1000 DCD 09/04 PO 0827 Ipratropium Winger 2.5 ML BID 09/02 1410 DCD 09/04 INH 1012 Ipratropium Winger 2.5 ML Q6P PRN 09/02 0500 DCD INH Lorazepam 0.5 MG TID PRN 09/02 0500 DCD 09/04 PO 09/09 0459 1019 Omeprazole 40 MG DAILY AC 09/02 0700 DCD 09/02 PO 0736 Patient Medication 1 ED .STK-MED ONE 09/03 1426 SD Teaching ED 09/03 1427 Prednisone 10 MG DAILY 09/18 1000 DCD PO 09/20 1001 Prednisone 20 MG DAILY 09/15 1000 DCD PO 09/17 1001 Prednisone 30 MG DAILY 09/12 1000 DCD PO 09/14 1001 Prednisone 40 MG DAILY 09/09 1000 DCD PO 09/11 1001 Prednisone 50 MG DAILY 09/06 1000 DCD PO 09/08 1001 Prednisone 60 MG DAILY 09/03 1000 DCD 09/04 PO 09/05 1001 0825 Vital Signs & I&O Last 24 Hrs of Vitals and I&O: Vital Signs Date Time Temp Pulse Resp B/P B/P Pulse O2 O2 Flow FiO2 Mean Ox Delivery Rate 07/13 1016 96 Room Air Room Air 09/04 0800 Room Air 09/04 0600 98.2 88 18 134/70 94 Room Air 09/04 0000 93 Room Air 09/03 2254 98.4 81 20 134/70 93 Room Air 09/03 2134 96 Room Air 09/03 1502 98.1 103 20 126/50 93 Room Air Intake & Output 09/04 1600 09/04 0800 09/04 0000 Intake Total 500 800 Output Total Balance 500 800 Intake, IV 150 150 Intake, Oral 350 650 Exam Other Physical Findings: gen awake and alert heent ncat cvs s1, s2 lungs rare rhonchi abd soft, bs+ ext without edema Results Last 24 Hrs of Lab Results: Laboratory Tests 09/04/16 0710: CBC w Diff NO MAN DIFF REQ, RBC 4.07 L, MCV 89.6, MCH 29.5, RDW 14.9 H, MPV 8.4, Gran % 76.0 H, Lymphocytes % 14.7 L, Monocytes % 8.9, Eosinophils % 0.2, Basophils % 0.2, Absolute Granulocytes 9.3 H, Absolute Lymphocytes 1.8, Absolute Monocytes 1.1 H, Absolute Eosinophils 0, Absolute Basophils 0, PUBS MCHC 33.0 Impression/Plan Impression/Plan Impression/Plan: Impression 41 M * chronic aspiration, 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
== END 2016-09-04 11:11 | DRG 177 ==
LOC: ERH 00:43 → 2NA 03:34 → ERHI 03:34 → ENRESERV 10:18 → ENTRNSPT 10:20 → EDTRNSPT 10:34 → EDTRNSPTSTS 10:34 → 2NA 10:42 → CMPTRNSPT 10:42 → 2NA 10:42 → ENPENDDIS 09-04 10:02 → 2NA 09-04 11:11
PROVIDERS: Emergency Medicine; Internal Medicine; Internal Medicine Infectious Disease; ADMIT Internal Medicine
DX: J69.0 Pneumonitis due to inhalation of food and vomit (principal); J96.01 Acute respiratory failure with hypoxia; Q39.0 Atresia of esophagus without fistula; K21.9 Gastro-esophageal reflux disease without esophagitis; J45.909 Unspecified asthma, uncomplicated
CPT/HCPCS: 2NAP; 70360; 82436; 87040; 87070; 93005; 93010; 96374; 96375; J1650; J2930; J3490

== ENCOUNTER 2016-09-10 01:09 | Emergency (ER) | payer OTHER, MEDICARE ==
[~2016-09-10 01:09] MED LIST changes: +AUGMENTIN 875-1 EACH PO
== END 2016-09-10 02:51 | disposition admitted as inpatient to this hospital (09) ==
LOC: ERH 01:09
DX: R06.02 Shortness of breath (principal)

== ENCOUNTER 2017-04-05 02:47 | Emergency (ER) | payer OTHER, MEDICARE ==
[~2017-04-05 02:47] MED LIST changes: +CYCLOBENZAPRINE5 M2 PO; +DOXYCYCLINE HY100 M4 PO; +MEDROL4 M2 PO; +ONDANSETRON HCL4 MG PO
[2017-04-05] MEDS ORDERED: PREDNISONE10 M2 PO (03:01)
--- NOTE | 2017-04-05 04:25 | ED DYSPNEA/ASTHMA COMPLAINT ---
History of Present Illness General Chief Complaint: Dyspnea (COPD, CHF, Other) Stated Complaint: DIFF BREATHING Source: patient, old records Exam Limitations: no limitations Vital Signs & Intake/Output Vital Signs & Intake/Output Vital Signs Date Time Temp Pulse Resp B/P B/P Pulse O2 O2 Flow FiO2 Mean Ox Delivery Rate 04/05 0458 97.1 110 22 97 04/05 0259 97.6 114 24 145/78 97 Room Air Allergies Coded Allergies: No Known Allergies (07/20/16) Reconcile Medications Amoxicillin/Potassium Clav (Augmentin 875-125 Tablet) 875 MG-125 MG TABLET 1 TAB PO BID PNEUMONIA . Dexlansoprazole (Dexilant) 60 MG CAP.DRHareshBP 1 CAP PO BID GI (Reported) Escitalopram Oxalate (Lexapro) 10 MG TABLET 1 TAB PO DAILY MENTAL HEALTH ( Reported) Fluticasone/Salmeterol (Advair 250-50 Diskus) 250 MCG-50 MCG/DOSE BLST.W.DEV 1 PUF INH BID ASTHMA (Reported) Ipratropium/Albuterol Sulfate (Iprat-Albut 0.5-3(2.5) MG/3 Ml) 0.5 MG-3 MG (2.5 MG BASE)/3 ML AMPUL.NEB 1 VIAL PO 4 TIMES/DAY PRN RESP. (Reported) Lorazepam 0.5 MG TABLET 1 TAB PO TID PRN ANXIETY (Reported) Prednisone 10 MG TABLET 1 TAB PO BID TAPER (Reported) Triage Note: PER PT CO DIFF BREATHING AND COUGHING UP PHLEGM X 2 DAYS ,UNSURE IF FEVER Triage Nurses Notes Reviewed? yes Onset: Last week Duration: day(s):, constant, continues in ED Timing: recent history Severity: moderate, severe Activities at Onset: activity, rest Prior Episodes/Possible Cause: frequent episodes Modifying Factors: Improves With: rest. Worsens With: movement. Associated Symptoms: anxiety, cough, wheezing HPI: About one week prior to admission patient complains of increased respiratory distress requiring more frequent nebulization chest tightness nonproductive cough. He has started a prednisone taper. He denies fever chills nausea vomiting diarrhea abdominal pain dysuria rash headache bleeding. Past History Travel History Traveled to [place] past 21 day No Medical History Any Pertinent Medical History? 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 DVT Relation not specified for: *No pertinent family history Hx Contributory? No Review of Systems Review of Systems Constitutional: Reports: no symptoms. EENTM: Reports: no symptoms. Respiratory: Reports: see HPI, short of breath. Cardiovascular: Reports: chest pain. GI: Reports: no symptoms. Genitourinary: Reports: no symptoms. Musculoskeletal: Reports: no symptoms. Skin: Reports: no symptoms. Neurological/Psychological: Reports: no symptoms. Hematologic/Endocrine: Reports: no symptoms. Immunologic/Allergic: Reports: no symptoms. All Other Systems: Reviewed and Negative Physical Exam Physical Exam General Appearance: well developed/nourished, alert, awake, anxious, mild distress Head: atraumatic, normal appearance Eyes: Bilateral: normal appearance, PERRL, EOMI. Ears, Nose, Throat: normal pharynx, normal ENT inspection Neck: normal inspection, supple, full range of motion, no midline tenderness Respiratory: chest non-tender, decreased breath sounds, wheezing Cardiovascular: regular rate/rhythm, normal peripheral pulses, norml femoral pulses equa Peripheral Pulses: 4+ carotid (R), 4+ carotid (L) Gastrointestinal: normal bowel sounds, soft, non-tender, no organomegaly Extremities: normal inspection, normal capillary refill, normal range of motion, no edema Neurologic/Psych: no motor/sensory deficits, awake, alert, oriented x 3, normal gait, normal mood/affect, enamel buffer II-XII nml as tested Skin: intact, normal color, warm/dry Lymphatic: no anterior cervical rex Core Measures ACS in differential dx? No CVA/TIA Diagnosis No Sepsis Present: No Sepsis Focused Exam Completed? No Progress Differential Diagnosis: asthma, COPD, pneumonia Plan of Care: Orders Procedure Date/time Status RAPID VIRAL INFLUENZA A 04/05 0326 Complete Microbiology 04/05 0455 NASOPHARYN: Influenza Virus A & B Rapid Smear - COMP Diagnostic Imaging: Viewed by Me: Radiology Read. Discussed w/RAD: Radiology Read. CXR Impression: no acute abnormality Initial ED EKG: none Departure Departure Time of Disposition: 513 Disposition: HOME OR SELF CARE Condition: Stable Clinical Impression Primary Impression: Asthma with acute exacerbation in adult Referrals: Jefferson HAILE,Cornel (PCP/Family) Erick HAILE,Brody Additional Instructions: Prolong your prednisone taper You may do your neb treatments every 4 hours as needed Departure Forms: Customer Survey General Discharge Information Critical Care Note Critical Care Note Critical Care Time: non-applicable
--- NOTE | 2017-04-05 04:48 | RADIOLOGY REPORT ---
EXAMINATION: XR CHEST CLINICAL INFORMATION: Cough, shortness of breath COMPARISON: CT 12/02/2016 TECHNIQUE: 2 views of the chest were obtained. FINDINGS: Lung volumes are symmetric. No focal consolidation is seen. No evidence of pneumothorax, pleural effusion, or pulmonary edema. The cardiomediastinal silhouette is stable. Postoperative changes of esophagectomy and pull-through are again demonstrated in the anterior mediastinum though better delineated on prior CT. No acute osseous findings are seen. IMPRESSION: No acute findings identified.
[2017-04-05 05:50] VITALS: BP 129/69
== END 2017-04-05 06:01 ==
LOC: ERH 02:47
DX: J45.909 Unspecified asthma, uncomplicated (principal); R07.89 Other chest pain
CPT/HCPCS: 1263; 71046; 87804; 87804-59

== ENCOUNTER 2017-06-27 20:26 | Emergency (ER) | payer OTHER, MEDICARE ==
[~2017-06-27] VITALS: Ht 165.1 cm; Wt 68.0 kg
--- NOTE | 2017-06-27 20:47 | ED GENERAL ADULT ---
History of Present Illness General Chief Complaint: Chest Pain Stated Complaint: SOB AND CP Source: patient Exam Limitations: no limitations Vital Signs & Intake/Output Vital Signs & Intake/Output Vital Signs Date Time Temp Pulse Resp B/P B/P Pulse O2 O2 Flow FiO2 Mean Ox Delivery Rate 06/27 2134 90 20 128/80 97 Room Air 06/27 2101 97 06/28 2031 97.4 114 20 162/99 97 Room Air Allergies Coded Allergies: No Known Allergies (07/20/16) Reconcile Medications Amoxicillin/Potassium Clav (Augmentin 875-125 Tablet) 875 MG-125 MG TABLET 1 TAB PO BID PNEUMONIA . Dexlansoprazole (Dexilant) 60 MG CAP.BP 1 CAP PO BID GI (Reported) Escitalopram Oxalate (Lexapro) 10 MG TABLET 1 TAB PO DAILY MENTAL HEALTH ( Reported) Fluticasone/Salmeterol (Advair 250-50 Diskus) 250 MCG-50 MCG/DOSE BLST.W.DEV 1 PUF INH BID ASTHMA (Reported) Ipratropium/Albuterol Sulfate (Iprat-Albut 0.5-3(2.5) MG/3 Ml) 0.5 MG-3 MG (2.5 MG BASE)/3 ML AMPUL.NEB 1 VIAL PO 4 TIMES/DAY PRN RESP. (Reported) Lorazepam 0.5 MG TABLET 1 TAB PO TID PRN ANXIETY (Reported) Prednisone 10 MG TABLET 1 TAB PO BID TAPER (Reported) Triage Note: PT TO TRIAGE C/O SOB AND CHEST PRESSURE. PT TOOK RX STEROIDS 10MG THIS MORNING AND 30MG AT 8PM WELL NEB TX AT 8PM WITH MINIMAL RELIEF. PT 02 97% IN TRIAGE, SPEAKING IN CLEAR SENTENCES. STATES PAIN IS NON RADIATING. Triage Nurses Notes Reviewed? yes Onset: Gradual Duration: day(s): Timing: recent history Injury Environment: home Severity: mild, moderate Modifying Factors: Improves With: other (better w/ neb). Associated Symptoms: cough, wheeze HPI: 42 yo gentleman h/o esophageal reconstruction, aspiration, asthma presents with cough, dyspnea, wheezing "all day." I take prednisone 10mg each day and today I took 40mg... I think it is starting to work. I feel better now. Past History Travel History Traveled to [place] past 21 day No Medical History Any Pertinent Medical History? 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 DVT Relation not specified for: *No pertinent family history Hx Contributory? No Review of Systems Review of Systems Constitutional: Reports: no symptoms. EENTM: Reports: no symptoms. Respiratory: Reports: no symptoms. Cardiovascular: Reports: no symptoms. GI: Reports: no symptoms. Genitourinary: Reports: no symptoms. Musculoskeletal: Reports: no symptoms. Skin: Reports: no symptoms. Neurological/Psychological: Reports: no symptoms. Hematologic/Endocrine: Reports: no symptoms. Immunologic/Allergic: Reports: no symptoms. All Other Systems: Reviewed and Negative Physical Exam Physical Exam General Appearance: well developed/nourished, mild distress Head: atraumatic, normal appearance Eyes: Bilateral: normal appearance. Ears, Nose, Throat: normal pharynx, normal ENT inspection Neck: normal inspection, supple, full range of motion Respiratory: wheezing, mild wheeze bilaterally Cardiovascular: regular rate/rhythm Gastrointestinal: normal bowel sounds, soft, non-tender, no organomegaly Back: normal inspection, normal range of motion Extremities: normal inspection, normal capillary refill, normal range of motion, no edema Neurologic/Psych: no motor/sensory deficits, awake, alert, oriented x 3 Skin: intact, normal color, warm/dry Core Measures ACS in differential dx? No CVA/TIA Diagnosis: No Sepsis Present: No Sepsis Focused Exam Completed? No Progress Differential Diagnoses I considered the following diagnoses in my evaluation of the patient: bronchospasm, aspiration vs other. Plan of Care: Orders Procedure Date/time Status EKG 06/27 2026 Active Initial ED EKG: normal axis, normal intervals, normal p-waves, normal QRS complex, normal sinus rhythm Departure Departure Disposition: HOME OR SELF CARE Condition: Stable Clinical Impression Primary Impression: Bronchospasm Referrals: Cornel Paulino MD (PCP/Family) Departure Forms: Customer Survey General Discharge Information Comments 06/27/17, 21:25... pt feels better after neb... upon prior review of records, all troponins have been negative for the past several years. cxr's have been unremarkable... pt already took prednisone 40mg today... i counseled pt to take prednisone 20mg tomorrow and return to ed if not feeling better. Critical Care Note Critical Care Note Critical Care Time: non-applicable
[2017-06-27 21:34] VITALS: BP 128/80
[2017-10-10] MEDS ORDERED: BREO ELLIPTA 21 EACH INH (15:11)
[2017-10-10] MEDS ORDERED: PREDNISONE10 M2 PO (15:13)
[2017-10-10] MEDS ORDERED: JANUVIA50 M1 PO (15:13)
[2017-10-10] MEDS ORDERED: IMIQUIMOD1 EACH TOP (15:14)
== END 2017-06-27 21:35 ==
LOC: ERH 20:26
DX: J98.01 Acute bronchospasm (principal)
CPT/HCPCS: 1263; 93005; 93010

== ENCOUNTER 2017-07-10 23:43 | Emergency (ER) | payer OTHER, MEDICARE ==
[~2017-07-10] VITALS: Ht 165.1 cm; Wt 68.0 kg
[2017-07-11 00:21] VITALS: BP 137/86
--- NOTE | 2017-07-11 01:50 | ED DYSPNEA/ASTHMA COMPLAINT ---
History of Present Illness General Chief Complaint: Wheezing/Asthma Stated Complaint: PT C/O DIFF BREATHING. 02 SAT 92% AT [facility] Source: patient, old records Exam Limitations: no limitations Vital Signs & Intake/Output Vital Signs & Intake/Output Vital Signs Date Time Temp Pulse Resp B/P B/P Pulse O2 O2 Flow FiO2 Mean Ox Delivery Rate 07/11 0021 97.0 100 20 137/86 96 Allergies Coded Allergies: No Known Allergies (07/20/16) Reconcile Medications Amoxicillin/Potassium Clav (Augmentin 875-125 Tablet) 875 MG-125 MG TABLET 1 TAB PO BID PNEUMONIA . Dexlansoprazole (Dexilant) 60 MG CAP.BP 1 CAP PO BID GI (Reported) Escitalopram Oxalate (Lexapro) 10 MG TABLET 1 TAB PO DAILY MENTAL HEALTH ( Reported) Fluticasone/Salmeterol (Advair 250-50 Diskus) 250 MCG-50 MCG/DOSE BLST.W.DEV 1 PUF INH BID ASTHMA (Reported) Ipratropium/Albuterol Sulfate (Iprat-Albut 0.5-3(2.5) MG/3 Ml) 0.5 MG-3 MG (2.5 MG BASE)/3 ML AMPUL.NEB 1 VIAL PO 4 TIMES/DAY PRN RESP. (Reported) Lorazepam 0.5 MG TABLET 1 TAB PO TID PRN ANXIETY (Reported) Prednisone 10 MG TABLET 1 TAB PO BID TAPER (Reported) Triage Note: 42YO MALE TO TRIAGE W/CO "DIFF BREATHING TONITE" HX ASTHMA AND STATES HE "TOOK NEB TX AT 2340 W/NO RELIEF" ALSO STATES HE IS ON PREDNISONE TAPER TOOK 20MG TODAY" RA SAT AT TRIAGE = 94 Triage Nurses Notes Reviewed? yes HPI: Patient presents for evaluation of an asthma attack after transient choking episode upon awakening shortly before arrival. Patient tried a nebulizer treatment at home without much improvement. He denies any associated fever or cold symptoms or chest pain. He likewise denies leg pain or leg swelling. Onset of symptoms was abrupt and described as severe waxing and waning in intensity. At home nothing seemed to make him feel better. Past History Travel History Traveled to [place] past 21 day No Medical History Any Pertinent Medical History? 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 DVT Relation not specified for: *No pertinent family history Hx Contributory? No Review of Systems Review of Systems Constitutional: Reports: no symptoms. EENTM: Reports: no symptoms. Respiratory: Reports: see HPI. Cardiovascular: Reports: no symptoms. GI: Reports: no symptoms. Genitourinary: Reports: no symptoms. Musculoskeletal: Reports: no symptoms. Skin: Reports: no symptoms. Neurological/Psychological: Reports: no symptoms. Hematologic/Endocrine: Reports: no symptoms. Immunologic/Allergic: Reports: no symptoms. All Other Systems: Reviewed and Negative Physical Exam Physical Exam Respiratory: SEE BELOW Comments: Gen.: Well-nourished, well-developed, no acute respiratory distress. Head: Normocephalic, atraumatic. Eyes: Normal inspection bilaterally Ears: Normal inspection bilaterally Nose: Normal inspection Throat/mouth : Moist mucosa Neck: Supple, full range of motion, no goiter Heart: Regular rate and rhythm, no murmurs rubs or gallops Lungs: Mild scattered end expiratory wheezing bilaterally with otherwise good air entry Chest: Nontender Back: Normal range of motion Abdomen: Soft, nontender, nondistended, normal bowel sounds, dressing over prior gastrostomy site appears intact Extremities: Normal range of motion grossly, equal radial pulses, no cyanosis clubbing or edema, calves nontender Neurologic: Cranial nerves grossly intact, speech is clear Skin: warm and dry Psychiatric: Calm, cooperative, no apparent delusions or hallucinations Core Measures ACS in differential dx? No CVA/TIA Diagnosis No Sepsis Present: No Sepsis Focused Exam Completed? No Progress Differential Diagnosis: VIRAL SYNDROME, SEASONAL ALLERGIES, ASPIRATION, ASTHMA EXACERBATION Plan of Care: See discharge instructions Initial ED EKG: none Comments: 07/11/2017 1:50:44 AM Tony is feeling better and denies shortness of breath currently. 07/11/2017 3:29:01 AM Tony has no complaint at this time and wishes to return home. Departure Departure Disposition: HOME OR SELF CARE Condition: Stable Clinical Impression Primary Impression: Choking episode Referrals: Cornel Paulino MD (PCP/Family) Additional Instructions: Consider taking an extra dose of prednisone today to help with your breathing. Take your nebulizers every 6 hours. Follow-up with your primary care physician on Thursday. Return if any concerns or sudden worsening. Thank you for choosing the [facility] Emergency Department for your care. It was a pleasure to serve you today. Lino Robb M.D. [facility] Departure Forms: Customer Survey General Discharge Information Critical Care Note Critical Care Note Critical Care Time: non-applicable
== END 2017-07-11 03:35 ==
LOC: ERH 23:43
DX: R09.89 Other specified symptoms and signs involving the circulatory and respiratory systems (principal); K22.8 Other specified diseases of esophagus; J44.9 Chronic obstructive pulmonary disease, unspecified; R06.2 Wheezing
CPT/HCPCS: 1263

== ENCOUNTER 2017-07-21 19:51 | Emergency (ER) | payer OTHER, MEDICARE ==
[~2017-07-21] VITALS: Ht 165.1 cm; Wt 68.0 kg
[2017-07-21 20:02] VITALS: BP 158/91
[2017-07-21 21:42] LABS: ABSOLUTE BASOPHIL COUNT 0 /CUMM (0.0-0.2); ABSOLUTE EOSINOPHIL COUNT 0.1 /CUMM (0.0-0.7); ABSOLUTE GRANULOCYTE CT 10.8 /CUMM (1.4-6.5); ABSOLUTE LYMPH COUNT 1.4 /CUMM (1.2-3.4); ABSOLUTE MONOCYTE COUNT 0.8 /CUMM (0.10-0.60); BASOPHIL % 0.3 % (0.0-2.0); EOSINOPHIL % 0.6 % (0-5); GRANULOCYTE % 82.5 % (42.2-75.2); HEMATOCRIT 41.3 % (42-52); MEAN CORPUSCULAR HGB 29.3 PG (27.0-31.0); MEAN CORPUSCULAR HGB CONC 33.2 G/DL (33.0-37.0); MEAN CORPUSCULAR VOLUME 88.4 FL (80.0-94.0); MEAN PLATELET VOLUME 7.1 FL (7.4-10.4); PLATELET COUNT 381 /CUMM (130-400); RBC DISTRIBUTION WIDTH 15.3 % (11.5-14.5); RED BLOOD CELL CT 4.67 /CUMM (4.70-6.10); WHITE BLOOD CELL COUNT 13.1 /CUMM (4.8-10.8)
--- NOTE | 2017-07-21 22:06 | RADIOLOGY REPORT ---
EXAMINATION: XR CHEST CLINICAL INFORMATION: 42-year-old man with shortness of breath. COMPARISON: 04/05/2017 chest radiograph TECHNIQUE: 2 views of the chest were obtained. FINDINGS: The lungs are well expanded with chronic emphysematous changes. The cardiac mediastinal silhouette remains distorted, partly due to a gastric pull-through. No focal consolidation or overt edema is appreciated. There are no pleural effusions. IMPRESSION: No convincing radiographic evidence of an acute cardiopulmonary process.
--- NOTE | 2017-07-21 23:23 | ED GENERAL ADULT ---
History of Present Illness General Chief Complaint: Chest Pain Stated Complaint: SOB AND CHEST PAIN Vital Signs & Intake/Output Vital Signs & Intake/Output Vital Signs Date Time Temp Pulse Resp B/P B/P Pulse O2 O2 Flow FiO2 Mean Ox Delivery Rate 07/21 2153 94 07/21 2001 97.7 112 18 158/91 97 Room Air Allergies Coded Allergies: No Known Allergies (07/20/16) Reconcile Medications Dexlansoprazole (Dexilant) 60 MG MELVIN.BP 1 CAP PO BID GI (Reported) Escitalopram Oxalate (Lexapro) 10 MG TABLET 1 TAB PO DAILY MENTAL HEALTH ( Reported) Fluticasone/Salmeterol (Advair 250-50 Diskus) 250 MCG-50 MCG/DOSE BLST.W.DEV 1 PUF INH BID ASTHMA (Reported) Ipratropium/Albuterol Sulfate (Iprat-Albut 0.5-3(2.5) MG/3 Ml) 0.5 MG-3 MG (2.5 MG BASE)/3 ML AMPUL.NEB 1 VIAL PO 4 TIMES/DAY PRN RESP. (Reported) Lorazepam 0.5 MG TABLET 1 TAB PO TID PRN ANXIETY (Reported) Prednisone 10 MG TABLET 1 TAB PO BID TAPER (Reported) Triage Note: PT FROM HOME C/O "CHEST TIGHTNESS" PER PT SINCE 1744. PT STATES HE TOOK 20MG PREDNISONE TODAY AND FELT GOOD THEN AROUND 1744 BEGAN TO FEEL "CHEST TIGHTNESS" PT MEDICATED WITH A NEB TREATMENT AND 20MG MORE OF PREDNISONE. PT STATES FEELING LIKE "I CANT BREATHE" NO DISTRESS NOTED IN TRIAGE. EKG COMPLETED. 97% ON RA. 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 DVT Relation not specified for: *No pertinent family history Progress Plan of Care: Orders Procedure Date/time Status TROPONIN LEVEL 07/21 2114 Complete COMPREHENSIVE METABOLIC PANEL 07/21 2114 Complete CBC WITHOUT DIFFERENTIAL 07/21 2114 Complete EKG 07/21 1952 Active Laboratory Tests 07/21/172134: Anion Gap 10, Estimated GFR > 60, BUN/Creatinine Ratio 18.6, Glucose 149 H, Calcium 9.4, Total Bilirubin 0.5, AST 15 L, ALT 49, Alkaline Phosphatase 49, Troponin I < 0.01, Total Protein 6.7, Albumin 4.1, Globulin 2.6, Albumin/ Globulin Ratio 1.6, CBC w Diff NO MAN DIFF REQ, RBC 4.67 L, MCV 88.4, MCH 29.3, MCHC 33.2, RDW 15.3 H, MPV 7.1 L, Gran % 82.5 H, Lymphocytes % 10.5 L, Monocytes % 6.1, Eosinophils % 0.6, Basophils % 0.3, Absolute Granulocytes 10.8 H, Absolute Lymphocytes 1.4, Absolute Monocytes 0.8 H, Absolute Eosinophils 0.1 , Absolute Basophils 0 Diagnostic Imaging: Viewed by Me: Radiology Read. Discussed w/RAD: Radiology Read. CXR Impression: PATIENT: LEE JEFFRIES PRESENT AGE: 42 PATIENT ACCOUNT NO: [id number] : 75 LOCATION: [facility] ORDERING PHYSICIAN: Lino Christensen DO (TBS) SERVICE DATE: 07/21/17 EXAM TYPE: RAD - XRY- CHEST XRAY, TWO VIEWS EXAMINATION: XR CHEST CLINICAL INFORMATION: 42-year-old man with shortness of breath. COMPARISON: 04/05/2017 chest radiograph TECHNIQUE: 2 views of the chest were obtained. FINDINGS: The lungs are well expanded with chronic emphysematous changes. The cardiac mediastinal silhouette remains distorted, partly due to a gastric pull-through. No focal consolidation or overt edema is appreciated. There are no pleural effusions. IMPRESSION: No convincing radiographic evidence of an acute cardiopulmonary process. DICTATED BY: Yocasta Singh MD DATE/TIME DICTATED:07/21/172199 FREIGHT AND PASSENGER AGENT:DARIO DATE/TIME TRANSCRIBED:07/21/172199 CONFIDENTIAL, DO NOT COPY WITHOUT APPROPRIATE AUTHORIZATION. <Electronically signed in Other Vendor System> SIGNED BY: Yocasta Singh MD 07/21/17 0937 Departure Departure Condition: Stable Referrals: Cornel Paulino MD (PCP/Family) Departure Forms: Customer Survey General Discharge Information
== END 2017-07-21 23:00 | disposition admitted as inpatient to this hospital (09) ==
LOC: ERH 19:51
PROVIDERS: Emergency Medicine
DX: R07.89 Other chest pain (principal)
CPT/HCPCS: 71046; 93005; 93010; 99281

== ENCOUNTER 2017-08-08 12:44 | Emergency (ER) | payer OTHER, MEDICARE ==
[~2017-08-08] VITALS: Ht 165.1 cm; Wt 68.0 kg
[2017-08-08 12:52] VITALS: BP 136/83
--- NOTE | 2017-08-08 13:12 | ED GENERAL ADULT ---
History of Present Illness General Chief Complaint: Upper Respiratory Sx/Fever Stated Complaint: SORE THROAT, BODY ACHE, X 5 DAYS Source: patient Exam Limitations: no limitations Vital Signs & Intake/Output Vital Signs & Intake/Output Vital Signs Date Time Temp Pulse Resp B/P B/P Pulse O2 O2 Flow FiO2 Mean Ox Delivery Rate 08/08 1300 Room Air 08/08 1252 99.2 108 16 136/83 95 Room Air Allergies Coded Allergies: No Known Allergies (07/20/16) Reconcile Medications Amoxicillin/Potassium Clav (Augmentin 875-125 Tablet) 875 MG-125 MG TABLET 1 TAB PO BID PHARYNGITIS Dexlansoprazole (Dexilant) 60 MG CAP.BP 1 CAP PO BID GI (Reported) Escitalopram Oxalate (Lexapro) 10 MG TABLET 1 TAB PO DAILY MENTAL HEALTH ( Reported) Fluticasone/Salmeterol (Advair 250-50 Diskus) 250 MCG-50 MCG/DOSE BLST.W.DEV 1 PUF INH BID ASTHMA (Reported) Ipratropium/Albuterol Sulfate (Iprat-Albut 0.5-3(2.5) MG/3 Ml) 0.5 MG-3 MG (2.5 MG BASE)/3 ML AMPUL.NEB 1 VIAL PO 4 TIMES/DAY PRN RESP. (Reported) Lorazepam 0.5 MG TABLET 1 TAB PO TID PRN ANXIETY (Reported) Prednisone 10 MG TABLET 1 TAB PO BID TAPER (Reported) Prednisone 50 MG TABLET 1 TAB PO DAILY ASTHMA Triage Note: 42M WITH SORE THROAT FOR A FEW DAYS AND HEAD FEELS PRESSURE. +BODY ACHES. +SICK CONTACTS. Triage Nurses Notes Reviewed? yes Onset: Abrupt Duration: day(s): (4-5), constant, continues in ED, getting worse Timing: single episode today Injury Environment: home Severity: moderate, severe Severity Numbers: 6 No Modifying Factors: none HPI: 42-year-old male history of asthma, GERD, COPD presents for evaluation of sore throat and wheezing. Patient reports symptoms again for 5 days ago and have been persistent. He reports symptoms started initially with a mild sore throat and then progressed to involve his chest. He reports wheezing that is similar to previous asthma exacerbations. Has been using his albuterol and troponin inhalers without much improvement. He has been using ibuprofen with good effect in reducing his pain. He denies any fever or coughing chest pain abdominal pain. Pain in his throat is worse with swallowing but he is able tolerate fluids. 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 He uses ensure. He states he is not having any difficulty swallowing. He is been no nausea or vomiting. No hemoptysis no lower extremity edema. Past History Travel History Traveled to [place] past 21 day No Medical History Any Pertinent Medical History? 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 DVT Relation not specified for: *No pertinent family history Hx Contributory? No Review of Systems Review of Systems Constitutional: Reports: no symptoms. EENTM: Reports: throat pain. Respiratory: Reports: see HPI, cough, wheezing. Cardiovascular: Reports: no symptoms. GI: Reports: no symptoms. Genitourinary: Reports: no symptoms. Musculoskeletal: Reports: no symptoms. Skin: Reports: no symptoms. Neurological/Psychological: Reports: no symptoms. Hematologic/Endocrine: Reports: no symptoms. Immunologic/Allergic: Reports: no symptoms. All Other Systems: Reviewed and Negative Physical Exam Physical Exam General Appearance: well developed/nourished, no apparent distress, alert, awake Head: atraumatic, normal appearance Eyes: Bilateral: normal appearance, PERRL, EOMI. Ears, Nose, Throat: hearing grossly normal, pharyngeal erythema (MILD), moist mucus membranes Neck: normal inspection, supple, full range of motion, lymphadenopathy (R) Respiratory: chest non-tender, no respiratory distress, wheezing (MILD END EXPIRATORY ) Cardiovascular: regular rate/rhythm, normal peripheral pulses Peripheral Pulses: 2+ radial (R), 2+ radial (L) Gastrointestinal: soft, non-tender Back: normal inspection, normal range of motion, no vertebral tenderness Extremities: normal inspection, normal range of motion, no edema Neurologic/Psych: no motor/sensory deficits, awake, alert, oriented x 3, normal gait Skin: intact, normal color, warm/dry Core Measures ACS in differential dx? No CVA/TIA Diagnosis: No Sepsis Present: No Sepsis Focused Exam Completed? No Progress Differential Diagnoses I considered the following diagnoses in my evaluation of the patient: [Asthma exacerbation, viral pharyngitis, acute bronchitis, COPD exacerbation, strep throat, mono, peritonsillar abscess, retropharyngeal abscess, Wade's angina, epiglottitis] Plan of Care: Orders Procedure Date/time Status THROAT CULTURE W/QUICK STREP 08/08 1254 Active Current Medications Sig/Maxim Start time Last Medication Dose Stop Time Status Admin Albuterol Sulfate 3 ML ONCE ONE 08/08 1329 UNVr (Proventil) 08/08 1330 Ipratropium [place] 2.5 ML ONCE ONE 08/08 1329 UNVr (Atrovent) 08/08 1330 Prednisone 60 MG ONCE ONE 08/08 1329 UNVr 08/08 1330 Patient seen and evaluated. He is here with sore throat and wheezing. On exam he has mild end expiratory wheezing no signs of hypoxia or cyanosis vital signs are stable. He has some mild pharyngeal erythema without tonsillar swelling or exudate. He also has some right-sided anterior cervical lymphadenopathy. Rapid strep test is negative. Patient was medicated with DuoNeb and prednisone here. On reevaluation his lung sounds have improved reports feeling better. He'll be discharged with instructions to continue using his DuoNeb's at home. Prednisone burst. Patient will be covered with Augmentin to cover possible pneumonia versus bacterial pharyngitis. Advised him to rest and drink plenty of fluids continue ibuprofen. Discussed return precautions. Follow-up with primary care doctor patient agrees the plan. Initial ED EKG: none Departure Departure Disposition: HOME OR SELF CARE Condition: Stable Clinical Impression Primary Impression: Asthma exacerbation Qualifiers: Asthma severity: moderate Asthma persistence: unspecified Qualified Code: J45.901 - Unspecified asthma with (acute) exacerbation Referrals: Cornel Paulino MD (PCP/Family) Additional Instructions: Take antibiotics and steroids as directed for the full course. Continue to use her DuoNeb's every 4-6 hours as needed. Tylenol and ibuprofen as needed for pain. Drink warm fluids salt water gargles or lozenges to soothe YOUr throat. Monitor symptoms closely if you have worsening pain or unable tolerate fluids fever or any other concerns return immediately. Please go over all results of today's visit with your primary care doctor. Contact your primary care doctor to let them know you were here in the emergency room. There may be nonspecific findings which may not be related to your visit today here in the emergency room but may require further evaluation and chronic monitoring by your primary care doctor. If you had a laceration today the chance of foreign body always remains. You should follow-up with your primary care doctor for recheck in 3-5 days for a wound check. If you had an x-ray done there is a chance that a fracture could have been missed on initial read and you should follow-up with your primary care doctor for repeat x-rays if symptoms persist. If your blood pressure was elevated here in the emergency room please have rechecked by her primary care doctor within the next 48 hours by your primary care doctor. If you were prescribed a narcotic here in the emergency room or any type of controlled substances you're not allowed to drive while taking this medication or operate any type of heavy machinery. Narcotics can make you feel lightheaded dizziness nausea and can cause constipation. You may need to machine operator picker a stool softener. Thank you for choosing [facility] emergency room. Please return to the emergency room immediately if you have any other concerns worsening of symptoms. Departure Forms: Customer Survey General Discharge Information Prescriptions: Current Visit Scripts Amoxicillin/Potassium Clav (Augmentin 875-125 Tablet) 1 TAB PO BID #20 TAB Prednisone 1 TAB PO DAILY #5 TAB Critical Care Note Critical Care Note Critical Care Time: non-applicable
[2017-08-08] MEDS ORDERED: PREDNISONE50 M1 PO (13:23)
[2017-08-08] MEDS ORDERED: AUGMENTIN 875-1 EACH PO (13:23)
== END 2017-08-08 13:55 ==
LOC: ERH 12:44
DX: J45.901 Unspecified asthma with (acute) exacerbation (principal)
CPT/HCPCS: 1263

== ENCOUNTER 2017-08-26 11:18 | Emergency (ER) | payer OTHER, MEDICARE ==
[~2017-08-26] VITALS: Ht 165.1 cm; Wt 65.8 kg
[~2017-08-26 11:18] MED LIST changes: +PREDNISONE50 M1 PO
[2017-08-26 12:14] LABS: ABSOLUTE BASOPHIL COUNT 0.1 /CUMM (0.0-0.2); ABSOLUTE EOSINOPHIL COUNT 0.3 /CUMM (0.0-0.7); ABSOLUTE GRANULOCYTE CT 8.9 /CUMM (1.4-6.5); ABSOLUTE LYMPH COUNT 1.7 /CUMM (1.2-3.4); ABSOLUTE MONOCYTE COUNT 0.9 /CUMM (0.10-0.60); BASOPHIL % 0.5 % (0.0-2.0); EOSINOPHIL % 2.4 % (0-5); GRANULOCYTE % 74.7 % (42.2-75.2); HEMATOCRIT 38.6 % (42-52); MEAN CORPUSCULAR HGB 28.7 PG (27.0-31.0); MEAN PLATELET VOLUME 8.1 FL (7.4-10.4); PLATELET COUNT 414 /CUMM (130-400); RBC DISTRIBUTION WIDTH 15.1 % (11.5-14.5); RED BLOOD CELL CT 4.44 /CUMM (4.70-6.10); WHITE BLOOD CELL COUNT 11.9 /CUMM (4.8-10.8)
--- NOTE | 2017-08-26 13:20 | ED GENERAL ADULT ---
History of Present Illness General Chief Complaint: Dizziness Stated Complaint: DIZZY Source: patient Exam Limitations: no limitations Vital Signs & Intake/Output Vital Signs & Intake/Output Vital Signs Date Time Temp Pulse Resp B/P B/P Pulse O2 O2 Flow FiO2 Mean Ox Delivery Rate 08/26 1427 97.5 74 18 140/81 99 Room Air 08/26 1136 97.5 101 20 131/81 96 Room Air Allergies Coded Allergies: No Known Allergies (07/20/16) Reconcile Medications Amoxicillin/Potassium Clav (Augmentin 875-125 Tablet) 875 MG-125 MG TABLET 1 TAB PO BID PHARYNGITIS Dexlansoprazole (Dexilant) 60 MG CAP.DR.BP 1 CAP PO BID GI (Reported) Escitalopram Oxalate (Lexapro) 10 MG TABLET 1 TAB PO DAILY MENTAL HEALTH ( Reported) Fluticasone/Salmeterol (Advair 250-50 Diskus) 250 MCG-50 MCG/DOSE BLST.W.DEV 1 PUF INH BID ASTHMA (Reported) Ipratropium/Albuterol Sulfate (Iprat-Albut 0.5-3(2.5) MG/3 Ml) 0.5 MG-3 MG (2.5 MG BASE)/3 ML AMPUL.NEB 1 VIAL PO 4 TIMES/DAY PRN RESP. (Reported) Lorazepam 0.5 MG TABLET 1 TAB PO TID PRN ANXIETY (Reported) Prednisone 10 MG TABLET 1 TAB PO BID TAPER (Reported) Prednisone 50 MG TABLET 1 TAB PO DAILY ASTHMA Triage Note: PT C/O FEELING LIGHTHEADED AND DIZZY X 1 WEEK. STATES HE STARTED JANUVIA ABOUT A MONTH AGO AND ISN'T SURE IF IT'S BECAUSE OF HIS DIABETES OR BECAUSE HE HAS BEEN JUST DRINKING ENSURE AND LIQUIDS LATELY BECAUSE HE DOESN'T WANT TO GET A FEEDING TUBE. STATES HE WAS BORN WITHOUT ESOPHAGUS Triage Nurses Notes Reviewed? yes Onset: Gradual Duration: day(s): Timing: intermittent HPI: 42-year-old male with a history of asthma, COPD, s/p esophageal transplant, now with esophageal stricture, diabetes, anxiety presenting with intermittent lightheadedness over the past week. Patient states that he had a prior endoscopy showing esophageal stricture, but that he is not a candidate for dilation. Was previously managed on steroids, but states that he stopped taking them as he did not like the way that they made him feel. Since then he has had difficulty tolerating solid foods. Has switched himself to an Ensure diet only. Has since also been spending a prolonged periods of time out in the heat. And now with intermittent episodes of lightheadedness, that are worse when he is out in the heat. Denies headaches, visual changes, chest pain, shortness of breath, extremity weakness, gait instability. (May Bonds) Past History Travel History Traveled to [place] past 21 day No Medical History Any Pertinent Medical History? 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 DVT Relation not specified for: *No pertinent family history Hx Contributory? No (May Bonds) Review of Systems Review of Systems Constitutional: Reports: no symptoms. EENTM: Reports: no symptoms. Respiratory: Reports: no symptoms. Cardiovascular: Reports: no symptoms. GI: Reports: no symptoms. Genitourinary: Reports: no symptoms. Musculoskeletal: Reports: no symptoms. Skin: Reports: no symptoms. Neurological/Psychological: Reports: see HPI. Hematologic/Endocrine: Reports: no symptoms. Immunologic/Allergic: Reports: no symptoms. (May Bonds) Physical Exam Physical Exam General Appearance: well developed/nourished, no apparent distress, alert, awake , comfortable Head: atraumatic, normal appearance Eyes: Bilateral: normal appearance, PERRL, EOMI. Ears, Nose, Throat: normal ENT inspection Neck: normal inspection Respiratory: normal breath sounds, lungs clear Cardiovascular: regular rate/rhythm Gastrointestinal: soft, non-tender Back: normal inspection Extremities: normal inspection Neurologic/Psych: no motor/sensory deficits, awake, alert, oriented x 3, normal gait, normal mood/affect, immigration coordinator II-XII nml as tested, cerebellar function intact Skin: intact, normal color, warm/dry Core Measures ACS in differential dx? No CVA/TIA Diagnosis: No Sepsis Present: No Sepsis Focused Exam Completed? No (Kelsie DE LA CRUZ,May) Progress Differential Diagnoses I considered the following diagnoses in my evaluation of the patient: [ Dehydration versus hypoglycemia versus calorie deficit, low concern for cardiac arrhythmia versus acute neurological event] Plan of Care: Orders Procedure Date/time Status MISTAKE 08/26 1331 Active URINALYSIS 08/26 112 Complete TROPONIN LEVEL 08/27 1123 Complete COMPREHENSIVE METABOLIC PANEL 08/27 1123 Complete CBC WITHOUT DIFFERENTIAL 08/27 1123 Complete EKG 08/27 1123 Active Laboratory Tests 08/26/17 1310: Urine Color STRAW, Urine Clarity CLEAR, Urine pH 7.0, Ur Specific [place] <= 1.005, Urine Protein NEG, Urine Ketones NEG, Urine Nitrite NEG, Urine Bilirubin NEG, Urine Urobilinogen 0.2, Ur Leukocyte Esterase NEG, Ur Microscopic EXAM NOT REQUIRED, Urine Hemoglobin NEG, Urine Glucose NEG 08/26/17 1156: Anion Gap 12, Estimated GFR > 60, BUN/Creatinine Ratio 26.7 H, Glucose 90, Calcium 9.5, Total Bilirubin 0.4, AST 21, ALT 34, Alkaline Phosphatase 47, Troponin I < 0.01, Total Protein 6.5, Albumin 4.1, Globulin 2.4, Albumin/ Globulin Ratio 1.7, CBC w Diff NO MAN DIFF REQ, RBC 4.44 L, MCV 87.0, MCH 28.7, MCHC 33.0, RDW 15.1 H, MPV 8.1, Gran % 74.7, Lymphocytes % 14.5 L, Monocytes % 7.9, Eosinophils % 2.4, Basophils % 0.5, Absolute Granulocytes 8.9 H, Absolute Lymphocytes 1.7, Absolute Monocytes 0.9 H, Absolute Eosinophils 0.3, Absolute Basophils 0.1 EKG is nonischemic. Labs unremarkable. Patient given a liter of IV fluids and reports improvement in his symptoms. Orthostatic vital signs were checked and are within normal limits. Patient states that he has a dry wall nailer to follow up with, and will follow-up for reevaluation of how to increase his calorie intake. Given strict return precautions. Initial ED EKG: NSR, no ST T wave changes (May Bonds) Departure Departure Disposition: HOME OR SELF CARE Condition: Stable Clinical Impression Primary Impression: Light headedness Referrals: Cornel Paulino MD (PCP/Family) Additional Instructions: Maintain adequate fluid intake and increase your calorie intake as tolerable. Follow-up with your dry wall nailer and your cytogenetic technician for reevaluation. Return to the emergency department for any new or worsening symptoms. Departure Forms: Customer Survey General Discharge Information (May Bonds) PA/CRIMINAL JUSTICE PROFESSOR Co-Sign Statement Statement: ED Attending supervision documentation- [] I saw and evaluated the patient. I have also reviewed all the pertinent lab results and diagnostic results. I agree with the findings and the plan of care as documented in the PA's/CRIMINAL JUSTICE PROFESSOR's documentation. [X] I have reviewed the ED Record and agree with the PA's/CRIMINAL JUSTICE PROFESSOR's documentation. [] Additions or exceptions (if any) to the PAs/CRIMINAL JUSTICE PROFESSOR's note and plan are summarized below: [] (Joseline HAILE,Bob Luo) Critical Care Note Critical Care Note Critical Care Time: non-applicable (May Bonds)
[2017-08-26 14:27] VITALS: BP 140/81
== END 2017-08-26 15:02 ==
LOC: ERH 11:18
PROVIDERS: Physician Assistant Medical
DX: R42 Dizziness and giddiness (principal)
CPT/HCPCS: 81003; 93005; 93010

== ENCOUNTER 2017-09-06 18:58 | Emergency (ER) | payer OTHER, MEDICARE ==
[~2017-09-06] VITALS: Ht 165.1 cm; Wt 65.8 kg
--- NOTE | 2017-09-06 21:05 | ED GENERAL ADULT ---
History of Present Illness General Chief Complaint: General Adult Stated Complaint: "LIGHT HEADED, DIZZY, TROUBLE BREATHING" Source: patient Exam Limitations: no limitations Vital Signs & Intake/Output Vital Signs & Intake/Output Vital Signs Date Time Temp Pulse Resp B/P B/P Pulse O2 O2 Flow FiO2 Mean Ox Delivery Rate 09/07 2123 97.6 85 18 152/96 96 09/06 1928 98.6 101 20 169/94 98 Room Air ED Intake and Output 09/07 0000 09/06 1200 Intake Total 0 Output Total Balance 0 Intake, Oral 0 Patient 145 lb Weight Weight Reported by Patient Measurement Method Allergies Coded Allergies: No Known Allergies (07/20/16) Reconcile Medications Amoxicillin/Potassium Clav (Augmentin 875-125 Tablet) 875 MG-125 MG TABLET 1 TAB PO BID PHARYNGITIS Dexlansoprazole (Dexilant) 60 MG CAP.BP 1 CAP PO BID GI (Reported) Escitalopram Oxalate (Lexapro) 10 MG TABLET 1 TAB PO DAILY MENTAL HEALTH ( Reported) Fluticasone/Salmeterol (Advair 250-50 Diskus) 250 MCG-50 MCG/DOSE BLST.W.DEV 1 PUF INH BID ASTHMA (Reported) Ipratropium/Albuterol Sulfate (Iprat-Albut 0.5-3(2.5) MG/3 Ml) 0.5 MG-3 MG (2.5 MG BASE)/3 ML AMPUL.NEB 1 VIAL PO 4 TIMES/DAY PRN RESP. (Reported) Lorazepam 0.5 MG TABLET 1 TAB PO TID PRN ANXIETY (Reported) Prednisone 10 MG TABLET 1 TAB PO BID TAPER (Reported) Prednisone 50 MG TABLET 1 TAB PO DAILY ASTHMA Triage Note: PT HERE WITH C/O LIGHTHEADNESS AND "MY EYES FEEL DISORIENTED". PT RECENTLY DISCHARGED FROM [facility] FOR SAME COMPLAINTS WITH 2 ANTIBIOTICS. PT SPO2 98% RA IN TRIAGE WHILE SPEAKING.PT ALSO REPORTS THAT HE WAS TOLD HIS "ORTHOSTATIC BP WAS OFF". Triage Nurses Notes Reviewed? yes Onset: Gradual Duration: hour(s): Timing: recent history Injury Environment: home Severity: mild Modifying Factors: Improves With: rest. Associated Symptoms: cough HPI: 42 yo gentleman h/o asthma/reflux due to esophageal repair, presents with intermittent episodes of dizziness. He shares that he was seen here last week, was started on meds for asthma. He then presented to [facility] where he was placed in observation x 2 days He was discharged this afternoon. He presents here because, for the past several days, he will experience intermittent dizziness. "I see stars in both my eyes... it lasts a few minutes... and then goes away... I'll feel a little dizzy and lightheaded... and then it goes away.... I felt it this evening... and came to the emergency room, but now I feel totally fine." He notes that he is drinking ample fluids. He has no headache, focal neuro deficits. He feels that his breathing is better on the steroids and antibiotics. He has no dyspnea, chest pain, abdominal pain. He is otherwise well. Past History Travel History Traveled to [facility] past 21 day No Medical History Any Pertinent Medical History? 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 DVT Relation not specified for: *No pertinent family history Hx Contributory? No Review of Systems Review of Systems Constitutional: Reports: no symptoms. EENTM: Reports: no symptoms. Respiratory: Reports: no symptoms. Cardiovascular: Reports: no symptoms. GI: Reports: no symptoms. Genitourinary: Reports: no symptoms. Musculoskeletal: Reports: no symptoms. Skin: Reports: no symptoms. Neurological/Psychological: Reports: no symptoms. Hematologic/Endocrine: Reports: no symptoms. Immunologic/Allergic: Reports: no symptoms. All Other Systems: Reviewed and Negative Physical Exam Physical Exam General Appearance: well developed/nourished, no apparent distress, alert, comfortable Comments: Physical Exam Physical Exam General Appearance: well developed/nourished, no apparent distress Head: atraumatic, normal appearance Eyes: Bilateral: normal appearance. Ears, Nose, Throat: normal pharynx, normal ENT inspection Neck: normal inspection, supple, full range of motion Respiratory: normal breath sounds, chest non-tender, no respiratory distress, quiet respiration, lungs clear Cardiovascular: regular rate/rhythm Gastrointestinal: normal bowel sounds, soft, non-tender, no organomegaly Back: normal inspection, normal range of motion Extremities: normal inspection, normal capillary refill, normal range of motion, no edema Neurologic/Psych: no motor/sensory deficits, awake, alert, oriented x 3 Skin: intact, normal color, warm/dry Core Measures ACS in differential dx? No CVA/TIA Diagnosis: No Sepsis Present: No Sepsis Focused Exam Completed? No Progress Differential Diagnoses I considered the following diagnoses in my evaluation of the patient: dehydration, hyperglycemia, elevated bp vs other. Plan of Care: Orders Procedure Date/time Status EKG 09/07 1903 Active Laboratory Tests 09/06/17 2016: Troponin I Cancelled, CBC w Diff Cancelled, WBC Cancelled, RBC Cancelled, Hgb Cancelled, Hct Cancelled, MCV Cancelled, MCH Cancelled, MCHC Cancelled, RDW Cancelled, Plt Count Cancelled, MPV Cancelled Initial ED EKG: nsr, no acute change. Departure Departure Disposition: HOME OR SELF CARE Condition: Stable Clinical Impression Primary Impression: Dizziness Secondary Impressions: Asthma exacerbation Referrals: Cornel Paulino MD (PCP/Family) Departure Forms: Customer Survey General Discharge Information Comments 09/06/17, 21:42... pt is asymptomatic throughout ED stay... follow up glucose in 80's, sbp 150's... pt feels comfortable going home and will follow up with his PMD tomorrow. Critical Care Note Critical Care Note Critical Care Time: non-applicable
[2017-09-06 21:24] VITALS: BP 152/96
== END 2017-09-06 21:50 ==
LOC: ERH 18:58
DX: J45.901 Unspecified asthma with (acute) exacerbation (principal); R42 Dizziness and giddiness
CPT/HCPCS: 93005; 93010

== ENCOUNTER 2017-09-21 03:39 | Emergency (ER) | payer OTHER, MEDICARE ==
[~2017-09-21] VITALS: Ht 165.1 cm; Wt 65.8 kg
--- NOTE | 2017-09-21 03:42 | ED DYSPNEA/ASTHMA COMPLAINT ---
History of Present Illness General Chief Complaint: Dyspnea (COPD, CHF, Other) Stated Complaint: SOB,CHEST TIGHTNESS Source: patient Exam Limitations: no limitations Vital Signs & Intake/Output Vital Signs & Intake/Output Vital Signs Date Time Temp Pulse Resp B/P B/P Pulse O2 O2 Flow FiO2 Mean Ox Delivery Rate 09/21 0406 98 09/21 0400 98 Room Air 09/21 0343 98.0 90 20 158/90 98 Room Air Allergies Coded Allergies: No Known Allergies (07/20/16) Reconcile Medications Dexlansoprazole (Dexilant) 60 MG MELVIN.BP 1 CAP PO BID GI (Reported) Escitalopram Oxalate (Lexapro) 10 MG TABLET 1 TAB PO DAILY MENTAL HEALTH ( Reported) Fluticasone/Salmeterol (Advair 250-50 Diskus) 250 MCG-50 MCG/DOSE BLST.W.DEV 1 PUF INH BID ASTHMA (Reported) Ipratropium/Albuterol Sulfate (Iprat-Albut 0.5-3(2.5) MG/3 Ml) 0.5 MG-3 MG (2.5 MG BASE)/3 ML AMPUL.NEB 1 VIAL PO 4 TIMES/DAY PRN RESP. (Reported) Lorazepam 0.5 MG TABLET 1 TAB PO TID PRN ANXIETY (Reported) Prednisone 10 MG TABLET 1 TAB PO BID TAPER (Reported) Prednisone 50 MG TABLET 1 TAB PO DAILY ASTHMA Triage Nurses Notes Reviewed? yes Onset: Abrupt Duration: hour(s): Timing: recent history Severity: mild Prior Episodes/Possible Cause: frequent episodes Modifying Factors: Improves With: other (better w/nebs in ED). Associated Symptoms: wheezing HPI: 42 yo gentleman h/o bronchospasm, esophageal repair in childhood, presents after suddenly awakening with dyspnea and wheezing and "tightness." He took one neb and noted it helped, but not completely. He does not believe this is a panic attack. He has no cough, phlegm, fever. He is otherwise well. Past History Travel History Traveled to [place] past 21 day No Medical History Any Pertinent Medical History? 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 DVT Relation not specified for: *No pertinent family history Hx Contributory? No Review of Systems Review of Systems Constitutional: Reports: no symptoms. EENTM: Reports: no symptoms. Respiratory: Reports: no symptoms. Cardiovascular: Reports: no symptoms. GI: Reports: no symptoms. Genitourinary: Reports: no symptoms. Musculoskeletal: Reports: no symptoms. Skin: Reports: no symptoms. Neurological/Psychological: Reports: no symptoms. Hematologic/Endocrine: Reports: no symptoms. Immunologic/Allergic: Reports: no symptoms. All Other Systems: Reviewed and Negative Physical Exam Physical Exam General Appearance: well developed/nourished, no apparent distress Head: atraumatic, normal appearance, active bleeding Eyes: Bilateral: normal appearance. Ears, Nose, Throat: normal pharynx, normal ENT inspection Neck: normal inspection, supple, full range of motion Respiratory: mild inspiratory and expiratory wheezing. Cardiovascular: regular rate/rhythm Gastrointestinal: normal bowel sounds, soft, non-tender Extremities: normal inspection Neurologic/Psych: no motor/sensory deficits, awake, alert, oriented x 3 Skin: intact, normal color, warm/dry Core Measures ACS in differential dx? No CVA/TIA Diagnosis No Sepsis Present: No Sepsis Focused Exam Completed? No Progress Differential Diagnosis: asthma, bronchitis, bronchospasm Plan of Care: Orders Procedure Date/time Status EKG 09/211 Active Initial ED EKG: SINUS, NO ACUTE CHANGE Departure Departure Disposition: HOME OR SELF CARE Condition: Stable Clinical Impression Primary Impression: Bronchospasm Referrals: Cornel Paulino MD (PCP/Family) Departure Forms: Customer Survey General Discharge Information Comments 09/21/17, 4:59... pt feeling well after duo neb. He feels comfortable going home. close follow up advised. Critical Care Note Critical Care Note Critical Care Time: non-applicable
[2017-09-21 03:43] VITALS: BP 158/90
== END 2017-09-21 05:03 ==
LOC: ERH 03:39
DX: J98.01 Acute bronchospasm (principal); R07.89 Other chest pain
CPT/HCPCS: 1263; 93005; 93010

== ENCOUNTER 2017-09-30 00:13 | Emergency (ER) | payer OTHER, MEDICARE ==
[~2017-09-30] VITALS: Ht 165.1 cm; Wt 65.8 kg
--- NOTE | 2017-09-30 01:01 | RADIOLOGY REPORT ---
EXAMINATION: XR CHEST CLINICAL INFORMATION: Shortness of breath. Chest pain. COMPARISON: 07/21/2017 TECHNIQUE: 2 views of the chest were obtained. FINDINGS: The lungs are well expanded. There is no focal consolidation, edema, or effusion. No pneumothorax. The cardiomediastinal silhouette is unchanged. No acute osseous abnormality. IMPRESSION: No acute pulmonary finding.
[2017-09-30 01:03] LABS: ABSOLUTE BASOPHIL COUNT 0 /CUMM (0.0-0.2); ABSOLUTE EOSINOPHIL COUNT 0.1 /CUMM (0.0-0.7); ABSOLUTE GRANULOCYTE CT 10.9 /CUMM (1.4-6.5); ABSOLUTE LYMPH COUNT 1.9 /CUMM (1.2-3.4); ABSOLUTE MONOCYTE COUNT 1.3 /CUMM (0.10-0.60); BASOPHIL % 0.2 % (0.0-2.0); EOSINOPHIL % 0.8 % (0-5); GRANULOCYTE % 76.4 % (42.2-75.2); HEMATOCRIT 39.8 % (42-52); MEAN CORPUSCULAR HGB 27.8 PG (27.0-31.0); MEAN CORPUSCULAR HGB CONC 32.9 G/DL (33.0-37.0); MEAN CORPUSCULAR VOLUME 84.4 FL (80.0-94.0); MEAN PLATELET VOLUME 7.8 FL (7.4-10.4); PLATELET COUNT 479 /CUMM (130-400); RBC DISTRIBUTION WIDTH 15.9 % (11.5-14.5); RED BLOOD CELL CT 4.72 /CUMM (4.70-6.10); WHITE BLOOD CELL COUNT 14.3 /CUMM (4.8-10.8)
--- NOTE | 2017-09-30 02:01 | ED GENERAL ADULT ---
History of Present Illness General Chief Complaint: Dyspnea (COPD, CHF, Other) Stated Complaint: DIFF BREATHING,SOB,CHEST PAIN,DIZZINESS PER PT. Source: patient Exam Limitations: no limitations Vital Signs & Intake/Output Vital Signs & Intake/Output ED Intake and Output 10/01 0000 09/30 1200 Intake Total 0 Output Total Balance 0 Intake, Oral 0 Patient 145 lb Weight Weight Reported by Patient Measurement Method Allergies Coded Allergies: No Known Allergies (07/20/16) Reconcile Medications Dexlansoprazole (Dexilant) 60 MG CAP.BP 1 CAP PO BID GI (Reported) Escitalopram Oxalate (Lexapro) 10 MG TABLET 1 TAB PO DAILY MENTAL HEALTH ( Reported) Fluticasone/Salmeterol (Advair 250-50 Diskus) 250 MCG-50 MCG/DOSE BLST.W.DEV 1 PUF INH BID ASTHMA (Reported) Ipratropium/Albuterol Sulfate (Iprat-Albut 0.5-3(2.5) MG/3 Ml) 0.5 MG-3 MG (2.5 MG BASE)/3 ML AMPUL.NEB 1 VIAL PO 4 TIMES/DAY PRN RESP. (Reported) Lorazepam 0.5 MG TABLET 1 TAB PO TID PRN ANXIETY (Reported) Prednisone 10 MG TABLET 1 TAB PO BID TAPER (Reported) Prednisone 50 MG TABLET 1 TAB PO DAILY ASTHMA Triage Note: PT TO ED C/O DIFF BREATHING FOR A FEW DAYS "NEBULIZERS AREN'T HELPING" LAST USED NEBULIZER JUST HERB DOCTOR. TOOK 0.5 MG ATIVAN ALSO JUST HERB DOCTOR. "MY BREATHING HAS BEEN LIKE SHIT ALL DAY TODAY" DENIES FEVERS. STATES CHEST PAIN TO RT LATERAL CHEST STARTED JUST PRIOR TO ARRIVAL, GETTING BETTER NOW. DENIES N/V. SOME DIZZINESS. GOOD PO INTAKE Triage Nurses Notes Reviewed? yes HPI: 42-year-old male with a past medical history significant for esophageal atresia S/P reconstructive surgery, asthma, recurrent aspiration, severe GERD and abdominal surgery due to small bowel obstruction, drove to the emergency department for chest pain time 15 minutes and shortness of breath 5 days. Right-sided axillary chest pain started 15 minutes ago before the patient presented to the emergency department. The pain was sharp and stabbing. Intensity 9/10. No worsening or relieving factors. Patient reports complete resolution of pain in the emergency department. The patient reports that for the past 5 days he has had worsening shortness of breath. He felt better today after 2 breathing treatments. The patient started p.o. steroids 3 days ago. He currently does not complain of any shortness of breath. Patient denies palpitations/fever/chills/loss of appetite/change in bowel or urinary beds. (Sarahy Pozo MD) Past History Travel History Traveled to [place] past 21 day No Medical History Any Pertinent Medical History? 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 DVT Relation not specified for: *No pertinent family history Hx Contributory? Yes (Sarahy Pozo MD) Review of Systems Review of Systems Constitutional: Reports: see HPI. EENTM: Reports: see HPI. Respiratory: Reports: see HPI, short of breath. Cardiovascular: Reports: see HPI, chest pain. GI: Reports: no symptoms. Genitourinary: Reports: no symptoms. Musculoskeletal: Reports: see HPI. Skin: Reports: see HPI. Neurological/Psychological: Reports: no symptoms. Hematologic/Endocrine: Reports: no symptoms. Immunologic/Allergic: Reports: no symptoms. (Sarahy Pozo MD) Physical Exam Physical Exam General Appearance: well developed/nourished, no apparent distress, alert, awake Head: atraumatic, normal appearance Eyes: Bilateral: normal appearance. Ears, Nose, Throat: normal pharynx, normal ENT inspection, hearing grossly normal Neck: normal inspection Respiratory: chest non-tender, Lt: Dec breath sounds B/l: Basal crackles Cardiovascular: regular rate/rhythm Peripheral Pulses: 4+ radial (R), 4+ radial (L), 4+ dorsalis pedis (R), 4+ dorsalis pedis (L) Gastrointestinal: normal bowel sounds, soft, non-tender Core Measures ACS in differential dx? Yes CVA/TIA Diagnosis: No Sepsis Present: No Sepsis Focused Exam Completed? Yes (Sarahy Pozo MD) Progress Differential Diagnoses I considered the following diagnoses in my evaluation of the patient: ACS, PE, aspiration PNA?? Plan of Care: Orders Procedure Date/time Status TROPONIN LEVEL 09/30 29 Complete MAGNESIUM 09/30 29 Complete COMPREHENSIVE METABOLIC PANEL 09/30 29 Complete CBC WITHOUT DIFFERENTIAL 09/30 29 Complete EKG 10/01 15 Active Laboratory Tests 09/30/17 0045: Anion Gap 10, Estimated GFR > 60, BUN/Creatinine Ratio 36.7 H, Glucose 137 H, Calcium 9.7, Magnesium 2.0, Total Bilirubin 0.2, AST 13 L, ALT 28, Alkaline Phosphatase 49, Troponin I < 0.01, Total Protein 6.8, Albumin 4.1, Globulin 2.7, Albumin/Globulin Ratio 1.5, CBC w Diff NO MAN DIFF REQ, RBC 4.72, MCV 84.4, MCH 27.8, MCHC 32.9 L, RDW 15.9 H, MPV 7.8, Gran % 76.4 H, Lymphocytes % 13.3 L, Monocytes % 9.3, Eosinophils % 0.8, Basophils % 0.2, Absolute Granulocytes 10.9 H, Absolute Lymphocytes 1.9, Absolute Monocytes 1.3 H, Absolute Eosinophils 0.1 , Absolute Basophils 0 Initial ED EKG: NSR (Sarahy Pozo MD) Departure Departure Disposition: HOME OR SELF CARE Condition: Stable Clinical Impression Primary Impression: SOB (shortness of breath) Referrals: Cornel Paulino MD (PCP/Family) Additional Instructions: -Please see your primary doctor within a week -Please visit your nearest emergency department if youhave any ofthese: Chest pain, worsening shortness of breath, fever, chills. -Please continue your current home medications Departure Forms: Customer Survey General Discharge Information (Sarahy Pozo MD) Resident Co-Sign Statement Statement: ED Attending supervision documentation- [x] I saw and evaluated the patient. I have also reviewed all the pertinent lab results and diagnostic results. I agree with the findings and the plan of care as documented in the Resident's documentation. [] I have reviewed the ED Record and agree with the Resident's documentation. [] Additions or exceptions (if any) to the Resident's note and plan are summarized below: [] (Clarisse AHILE,Lino Swan) Critical Care Note Critical Care Note Critical Care Time: non-applicable (Sánchez HAILE,Sarahy) ED Attending Observation Initial Observation Note: I have seen and personally examined LEE JEFFRIES on 09/30/17 at 0216. I agree with the current emergency department documentation. The disposition (admission or discharge) is uncertain at this time, he needs a period of observation for the following reason(s): SOB , CP. R/o ACS The ED Nurse caring for this patient has been personally informed as to what the patient is being observed for. (Sánchez HAILE,Sarahy)
[2017-09-30 02:02] VITALS: BP 152/76
== END 2017-09-30 02:03 ==
LOC: ERH 00:13
PROVIDERS: Emergency Medicine
DX: R06.02 Shortness of breath (principal); R07.9 Chest pain, unspecified
CPT/HCPCS: 71046; 93005; 93010

== ENCOUNTER 2017-10-06 17:11 | Emergency (ER) | payer OTHER, MEDICARE ==
[~2017-10-06] VITALS: Ht 165.1 cm; Wt 64.4 kg
[2017-10-06 17:24] VITALS: BP 140/87
--- NOTE | 2017-10-06 18:01 | ED CARDIAC/CP/PALPITATIONS ---
History of Present Illness General Chief Complaint: Chest Pain Stated Complaint: CHEST PRESSURE,SOB Source: patient, old records Exam Limitations: no limitations Vital Signs & Intake/Output Vital Signs & Intake/Output Vital Signs Date Time Temp Pulse Resp B/P B/P Pulse O2 O2 Flow FiO2 Mean Ox Delivery Rate 10/06 1724 98.0 118 20 140/87 95 Room Air Allergies Coded Allergies: No Known Allergies (07/20/16) Reconcile Medications Cyclobenzaprine HCl 10 MG TABLET 1 TAB PO Q8P PAIN OR SPASM Dexlansoprazole (Dexilant) 60 MG MELVIN.DRHareshBP 1 CAP PO BID GI (Reported) Escitalopram Oxalate (Lexapro) 10 MG TABLET 1 TAB PO DAILY MENTAL HEALTH ( Reported) Fluticasone/Salmeterol (Advair 250-50 Diskus) 250 MCG-50 MCG/DOSE BLST.W.DEV 1 PUF INH BID ASTHMA (Reported) Ipratropium/Albuterol Sulfate (Iprat-Albut 0.5-3(2.5) MG/3 Ml) 0.5 MG-3 MG (2.5 MG BASE)/3 ML AMPUL.NEB 1 VIAL PO 4 TIMES/DAY PRN RESP. (Reported) Lorazepam 0.5 MG TABLET 1 TAB PO TID PRN ANXIETY (Reported) Prednisone 10 MG TABLET 1 TAB PO BID TAPER (Reported) Prednisone 50 MG TABLET 1 TAB PO DAILY ASTHMA Triage Note: PT STATES THAT HE HAS BEEN HAVING CONSTANT L SIDE CHEST PRESSURE FOR THE PAST COUPLE OF HOURS , STATES THAT IT WAS RADIATING INTO HIS L ARM BUT NO LONGER IS, ALSO STATES THAT HE HAS BEEN FEELING SOB AND IS UNSURE IF THE PAIN IS DUE TO HIS LUNGS. PT DID BREATHING TREATMENT AND TOOK MOTRIN WITH NO RELIEF OF PAIN, O2 SAT 95 % ON RA Triage Nurses Notes Reviewed? yes HPI: Patient patient presents with continued chest tightness in the left side that he 's had for the past 2 months straight. Patient has been seen in the emergency department multiple times. Patient states he gets a DuoNeb lays here in the emergency department and feels better and then goes home and when he is home he uses an inhaler and that doesn't seem to be cutting it. The pain is constant and decreases when he takes a DuoNeb. The emergency room. Patient states the pain worsens with movement and deep breath. Patient denies any fevers or chills. There is no orthopnea or dyspnea on exertion. There is no coughing. Past History Travel History Traveled to [place] past 21 day No Medical History Any Pertinent Medical History? 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 DVT Relation not specified for: *No pertinent family history Hx Contributory? No Review of Systems Review of Systems Constitutional: Reports: no symptoms. EENTM: Reports: no symptoms. Respiratory: Reports: no symptoms. Cardiovascular: Reports: see HPI, chest pain. GI: Reports: no symptoms. Genitourinary: Reports: no symptoms. Musculoskeletal: Reports: no symptoms. Skin: Reports: no symptoms. Neurological/Psychological: Reports: no symptoms. Hematologic/Endocrine: Reports: no symptoms. Immunologic/Allergic: Reports: no symptoms. All Other Systems: Reviewed and Negative Physical Exam Physical Exam General Appearance: well developed/nourished, alert, awake, mild distress Head: atraumatic, normal appearance Eyes: Bilateral: PERRL, EOMI. Ears, Nose, Throat: normal pharynx, normal ENT inspection, hearing grossly normal Neck: normal inspection, supple, full range of motion Respiratory: normal breath sounds, chest non-tender, no respiratory distress, lungs clear Cardiovascular: regular rate/rhythm, normal peripheral pulses Gastrointestinal: normal bowel sounds, soft, non-tender, no organomegaly Back: normal inspection, normal range of motion Extremities: normal inspection, normal capillary refill, normal range of motion, no edema Neurologic/Psych: no motor/sensory deficits, awake, alert, oriented x 3, normal gait, normal mood/affect Skin: intact, normal color, warm/dry Lymphatic: no anterior cervical rex Core Measures ACS in differential dx? No CVA/TIA Diagnosis No Sepsis Present: No Sepsis Focused Exam Completed? No Progress Differential Diagnosis: costochondritis, myocarditis, pneumonia, pneumothorax Plan of Care: Orders Procedure Date/time Status EKG 10/06 1712 Active Laboratory Tests 10/06/17 1749: Troponin I Cancelled, CBC w Diff Cancelled, WBC Cancelled, RBC Cancelled, Hgb Cancelled, Hct Cancelled, MCV Cancelled, MCH Cancelled, MCHC Cancelled, RDW Cancelled, Plt Count Cancelled, MPV Cancelled Initial ED EKG: NSR, no ST T wave changes Prior EKG: unchanged Departure Departure Disposition: HOME OR SELF CARE Condition: Stable Clinical Impression Primary Impression: Chest pain, unspecified Referrals: Cornel Paulino MD (PCP/Family) Additional Instructions: Take Flexeril as needed. Return if symptoms worsen or for any concerns. Departure Forms: Customer Survey General Discharge Information Prescriptions: Current Visit Scripts Cyclobenzaprine HCl 1 TAB PO Q8P #20 TAB Critical Care Note Critical Care Note Critical Care Time: non-applicable
[2017-10-06] MEDS ORDERED: CYCLOBENZAPRINE10 M1 PO (18:07)
== END 2017-10-06 18:42 ==
LOC: ERH 17:11
DX: R07.89 Other chest pain (principal); R06.02 Shortness of breath; J45.909 Unspecified asthma, uncomplicated; J44.9 Chronic obstructive pulmonary disease, unspecified; K21.9 Gastro-esophageal reflux disease without esophagitis; F41.9 Anxiety disorder, unspecified
CPT/HCPCS: 1263; 93005; 93010

== ENCOUNTER 2017-10-09 13:25 | Emergency (ER) | payer OTHER, MEDICARE ==
[~2017-10-09] VITALS: Ht 165.1 cm; Wt 68.0 kg
[~2017-10-09 13:25] MED LIST changes: +CYCLOBENZAPRINE10 M1 PO
[2017-10-09 13:54] VITALS: BP 134/95
[2017-10-10] MEDS ORDERED: BREO ELLIPTA 21 EACH INH (15:11)
[2017-10-10] MEDS ORDERED: JANUVIA50 M1 PO (15:13)
[2017-10-10] MEDS ORDERED: PREDNISONE10 M2 PO (15:13)
[2017-10-10] MEDS ORDERED: IMIQUIMOD1 EACH TOP (15:14)
== END 2017-10-09 15:11 | disposition admitted as inpatient to this hospital (09) ==
LOC: ERH 13:25
DX: R42 Dizziness and giddiness (principal); R53.83 Other fatigue
CPT/HCPCS: 93005; 93010

== ENCOUNTER 2017-10-10 17:37 | Emergency (ER) | payer OTHER, MEDICARE ==
[~2017-10-10 17:37] MED LIST changes: +BREO ELLIPTA 21 EACH INH; +IMIQUIMOD1 EACH TOP; +JANUVIA50 M1 PO
== END 2017-10-10 18:37 | disposition admitted as inpatient to this hospital (09) ==
LOC: ERH 17:37
DX: R07.9 Chest pain, unspecified (principal); R06.02 Shortness of breath

== ENCOUNTER 2017-11-02 20:20 | Emergency (ER) | payer OTHER, MEDICARE ==
[~2017-11-02] VITALS: Ht 165.1 cm; Wt 61.2 kg
[2017-11-02 20:41] VITALS: BP 125/83
--- NOTE | 2017-11-02 21:22 | ED DYSPNEA/ASTHMA COMPLAINT ---
History of Present Illness General Chief Complaint: Dyspnea (COPD, CHF, Other) Stated Complaint: SOB, CP Source: patient, old records Exam Limitations: no limitations Vital Signs & Intake/Output Vital Signs & Intake/Output Vital Signs Date Time Temp Pulse Resp B/P B/P Pulse O2 O2 Flow FiO2 Mean Ox Delivery Rate 11/02 2040 97.3 93 18 125/83 98 Room Air Allergies Coded Allergies: No Known Allergies (07/20/16) Reconcile Medications Cyclobenzaprine HCl 10 MG TABLET 1 TAB PO Q8P PAIN OR SPASM Dexlansoprazole (Dexilant) 60 MG CAP.DR.BP 1 CAP PO DAILY GI (Reported) Escitalopram Oxalate (Lexapro) 10 MG TABLET 1 TAB PO DAILY MENTAL HEALTH ( Reported) Fluticasone/Vilanterol (Breo Ellipta 200-25 Mcg INH) 200 MCG-25 MCG/DOSE BLST.W.DEV 1 PUFF INH DAILY RESP. (Reported) Imiquimod 5 % CREAM.PACK 1 ANA TOP Thursday FACE (Reported) Ipratropium/Albuterol Sulfate (Iprat-Albut 0.5-3(2.5) MG/3 Ml) 0.5 MG-3 MG (2.5 MG BASE)/3 ML AMPUL.NEB 1 VIAL PO 4 TIMES/DAY PRN RESP. (Reported) Lorazepam 0.5 MG TABLET 1 TAB PO TID PRN ANXIETY (Reported) Prednisone 10 MG TABLET STEROID TAPER (Reported) Sitagliptin Phosphate (Januvia) 50 MG TABLET 1 TAB PO DAILY BLOOD SUGAR ( Reported) Triage Note: TRIAGE: PATIENT TO ER FROM HOME REPORTING CHRONIC PAIN EXACERBATION SINCE 7:15 TONIGHT. REPORTS "WAS AT [facility] FOR 1 WEEK ABOUT 10 DAYS AGO AND WAS GIVEN RX FOR LORAZEPAM 1MG TO TAKE PRN, TAKING ABOUT 1 PER DAY. REPORTS WAS GIVEN MORPHINE AND LORAZEPAM AT [facility] W/ RELIEF. REPORTING TONIGHT TOOK LORAZEPAM AND DID NOT GET RELIEF OF CHEST PRESSURE. +DIZZINESS EARLIER, DENIES NOW. +L SIDE CHEST PRESSURE, DENIES SOB. Triage Nurses Notes Reviewed? yes Onset: Gradual Duration: hour(s): Timing: multiple episodes today Severity: severe HPI: 42yo male with hx of esophageal atresia requiring surgery, formerly with J-tube, GERD, asthma presents to ED complaining of chest pain and dyspnea beginning around 7:15PM tonight. Patient has history of frequent chest pain, he states his pain today was similar to previous episodes of chest pain which she gets about every day. Patient took his lorazepam 1mg which usually helps relieve his pain however pain was persistent which prompted his emergency department visit. Patient states that his pain did resolve at 9PM here in the ED while he was waiting to be evaluated. Patient mentions that he was recently admitted at [facility] for about 1 week at which time one of the doctors informed him that his pain was likely due to intestinal issues such as gastroparesis or GERD due to his history of esophageal atresia. Currently patient denies abdominal pain, vomiting, cough. (Maureen Velasquez) Past History Travel History Traveled to [facility] past 21 day No Medical History Any Pertinent Medical History? 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 DVT Relation not specified for: *No pertinent family history Hx Contributory? No (Maureen Velasquez) Review of Systems Review of Systems Constitutional: Reports: no symptoms. EENTM: Reports: no symptoms. Respiratory: Reports: see HPI. Cardiovascular: Reports: see HPI. GI: Reports: see HPI. Genitourinary: Reports: no symptoms. Musculoskeletal: Reports: no symptoms. Skin: Reports: no symptoms. Neurological/Psychological: Reports: no symptoms. Hematologic/Endocrine: Reports: no symptoms. Immunologic/Allergic: Reports: no symptoms. All Other Systems: Reviewed and Negative (Maureen Velasquez) Physical Exam Physical Exam General Appearance: well developed/nourished, no apparent distress, alert, awake Head: atraumatic, normal appearance Eyes: Bilateral: normal appearance. Ears, Nose, Throat: hearing grossly normal Neck: normal inspection, supple, full range of motion Respiratory: normal breath sounds, no respiratory distress, lungs clear, sternal chest tenderness Cardiovascular: regular rate/rhythm Gastrointestinal: normal bowel sounds, soft, non-tender, no organomegaly Extremities: normal inspection, normal range of motion Neurologic/Psych: awake, alert, oriented x 3 Skin: intact, normal color, warm/dry Core Measures ACS in differential dx? Yes CVA/TIA Diagnosis No Sepsis Present: No Sepsis Focused Exam Completed? No (Maureen Velasquez) Progress Differential Diagnosis: asthma, AMI, bronchitis, costochondritis, CHF, COPD, musculoskeletal pain, pulmonary embolism, pneumonia, unstable angina, GERD Plan of Care: Orders Procedure Date/time Status EKG 11/02 2020 Active Upon my initial evaluation that this patient's his chest pain and dyspnea have resolved. Patient's EKG is compared to previous study. I offered the patient chest x-ray and labs to evaluate for cardiac pathology however the patient declines. I informed the patient that there are risks to bleeding without cardiac workup given his chest pain, risks include heart attack and . Patient understands however he feels ready to go home at this time given his resolved symptoms. 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 Patient agrees with the plan of care. Initial ED EKG: sinus rhythm @96bpm, nonspecific ST changes Prior EKG: unchanged (10/10/17) (Nolvia DE LA CRUZ,Maureen Mendoza) Departure Departure Disposition: HOME OR SELF CARE Condition: Stable Clinical Impression Primary Impression: Chest pain Qualifiers: Chest pain type: unspecified Qualified Code: R07.9 - Chest pain, unspecified Secondary Impressions: Dyspnea Qualifiers: Dyspnea type: unspecified Qualified Code: R06.00 - Dyspnea, unspecified Referrals: Cornel Paulino MD (PCP/Family) Additional Instructions: Follow-up with your specialist as discussed. Continue taking your medications as prescribed. You are leaving without chest x-ray and labs which does have risks including heart attack. Return if worsening symptoms or concerns. Please note that there might be incidental findings in your evaluation that are unrelated to the current emergency department visit. Please notify your primary care doctor about this emergency department visit in order to obtain and review all of the testing performed so that these incidental findings can be monitored as needed. If you had an x-ray performed, please understand that some fractures may not be seen on the initial set of x-rays. If your symptoms persist you might need a repeat set of x-rays to check for such a fracture. If you had a laceration evaluated, please understand that foreign bodies such as glass or wood may not be visible to the naked eye or on plain x-rays. If the wound becomes red, swollen, increasingly more painful or if there is any drainage from the wound, please have it reevaluated by a physician for the possibility of a retained foreign body. If you're unable to follow up as outlined in the discharge instructions please return to the emergency department. Thank you for choosing the [facility] Emergency Department for your care. It was a pleasure to serve you today. Departure Forms: Customer Survey General Discharge Information (Maureen Velasquez) PA/BARREL POLISHER Co-Sign Statement Statement: ED Attending supervision documentation- [] I saw and evaluated the patient. I have also reviewed all the pertinent lab results and diagnostic results. I agree with the findings and the plan of care as documented in the PA's/BARREL POLISHER's documentation. [X] I have reviewed the ED Record and agree with the PA's/BARREL POLISHER's documentation. [] Additions or exceptions (if any) to the PAs/BARREL POLISHER's note and plan are summarized below: [] (Joseline HAILE,Bob Luo) Critical Care Note Critical Care Note Critical Care Time: non-applicable (Maureen Velasquez)
== END 2017-11-02 21:50 ==
LOC: ERH 20:20
DX: R07.9 Chest pain, unspecified (principal); R06.00 Dyspnea, unspecified
CPT/HCPCS: 93005; 93010